=== PATIENT | female | born 1940 | race Caucasian/White ===

== ENCOUNTER → 2019-09-19 07:32 | Outpatient (CLI) | payer MEDICARE, SELFPAY ==
[2019-08-24 10:36] VITALS: BMI 20.3
--- NOTE | 2019-09-19 07:37 | ECHOD_ITS ---
Reason For Study: Chest pain Procedure This was a 2D Doppler, Color Flow transthoracic echocardiogram. Exam performed in department. Left Ventricle Normal LV size. Mild concentric left ventricular hypertrophy. Left ventricular systolic function is hyperdynamic. The estimated ejection fraction is 75 %. There is evidence of diastolic dysfunction. No regional wall motion abnormalities noted. Right Ventricle Normal RV size. Normal systolic function. Atria The left atrium is mildly enlarged. Normal right atrium. No doppler evidence for ASD. Mitral Valve There is severe mitral annular calcification. Extension of the mitral annular calcification onto the posterior mitral valve leaflet. Mild diffuse mitral valve thickening. Moderate focal mitral valve calcification of the anterior leaflet. Mild mitral valve stenosis. Mild (1+) mitral valve insufficiency. Tricuspid Valve Mild diffuse thickening of the tricuspid valve. Mild tricuspid valve insufficiency. Right ventricular systolic pressure estimated to be 58 mmHg. Aortic Valve Trisinus/trileaflet aortic valve. Mild diffuse aortic valve thickening. Moderate diffuse aortic valve calcification. Moderate aortic stenosis. Pulmonic Valve The pulmonic valve is not well visualized. Trivial pulmonic valve insufficiency. Great Vessels Normal sized aortic root. Calcified aortic root. Pericardium/Pleural No pericardial effusion. MMode/2D Measurements & Calculations LVIDd: 3.4 cm IVSd: 1.3 cm LVOT diam: 1.9 cm LVIDs: 1.2 cm LVPWd: 1.4 cm LVOT area: 2.7 cm2 RVDd: 3.1 cm FS: 63.8 % Ao root diam: 2.6 cm LAV(MOD-bp): 39.4 ml LA A4 area: 16.7 cm2 LAV(MOD-bp) Indexed: 25.8 ml/m2 LAV(MOD-sp2): 34.9 ml LAV(MOD-sp4): 45.4 ml LA dimension(2D): 3.0 cm RA A4 area: 13.3 cm2 Doppler Measurements & Calculations MV E max andrade: 114.4 cm/sec Lat Peak E' Andrade: 6.1 cm/sec Med Peak E' Andrade: 4.5 cm/sec MV A max andrade: 166.7 cm/sec E/E' lat: 18.8 E/E' med: 25.6 MV E/A: 0.69 MV V2 max: 166.7 cm/sec Ao V2 max: 308.9 cm/sec LV V1 max: 117.6 cm/sec MV max P.1 mmHg Ao max P.3 mmHg LV V1 max P.5 mmHg MV V2 mean: 116.1 cm/sec Ao V2 mean: 211.2 cm/sec LV V1 mean P.8 mmHg MV mean P.8 mmHg Ao mean P.2 mmHg LV V1 mean: 79.5 cm/sec MV V2 VTI: 24.4 cm Ao V2 VTI: 53.0 cm LV V1 VTI: 21.1 cm MVA(VTI): 2.4 cm2 JUAN CARLOS(I,D): 1.1 cm2 JUAN CARLOS(V,D): 1.0 cm2 SV(LVOT): 58.1 ml PA V2 max: 110.1 cm/sec TR max andrade: 381.7 cm/sec TR max P.4 mmHg Interpretation Summary Left ventricular systolic function is hyperdynamic. The estimated ejection fraction is 75 %. Mild concentric left ventricular hypertrophy. The left atrium is mildly enlarged. There is severe mitral annular calcification. Extension of the mitral annular calcification onto the posterior mitral valve leaflet. Mild diffuse mitral valve thickening. Moderate focal mitral valve calcification of the anterior leaflet. Mild mitral valve stenosis. Mild (1+) mitral valve insufficiency. Mild diffuse thickening of the tricuspid valve. Mild tricuspid valve insufficiency. Moderate aortic stenosis. Trivial pulmonic valve insufficiency. Calcified aortic root. Right ventricular systolic pressure estimated to be 58 mmHg. There is evidence of diastolic dysfunction. Late peaking spectral doppler pattern in the mid LV cavity area approaching 3.5 m/sec (PG of approximately 49 mmHg) c/w a hyperdynamic state. Ordering Physician: Riaz Laureano Referring Physician: Amado Bruce M.D. Performed By: Imelda Donahue RDCS
--- NOTE | 2019-09-19 12:24 | STRESSREP ---
Stress Test Report Date: ? Procedure: Pharmacologic stress nuclear imaging study Indications: Chest pain; shortness of breath/dyspnea; abnormal ECG/right bundle branch block; aortic valve stenosis Consent: Per the patient Procedure: The patient underwent pharmacologic (Regadenoson) evaluation with a peak heart rate of 116 beats per minute (83 %predicted maximal heart rate) and a peak blood pressure of 160/80 mmHg. The baseline ECG demonstrated sinus rhythm; right bundle branch block. The peak pharmacologic ECG demonstrated no obvious ECG changes. There were occasional PVCs during infusion and recovery. There was no complaint of chest discomfort during pharmacologic infusion or recovery. The examination was discontinued secondary to completion of protocol. Impression: 1. Pharmacologic (Regadenoson) evaluation 2. Peak pharmacologic ECG with no obvious ECG changes. 3. There were occasional PVCs during infusion and recovery. 4. Nuclear images pending Myocardial perfusion imaging study: Technique: The patient was injected with 11.5 millicuries of technetium 99m Cardiolite and subsequently rest SPECT Cardiolite nuclear imaging was obtained in the horizontal long, vertical long, and short axis views. The patient underwent pharmacologic (Regadenoson) evaluation with a peak heart rate of 116 beats per minute (83 % percent predicted maximal heart rate) and a peak blood pressure of 160/80 mmHg. The patient was injected with 33.5 millicuries of technetium 99m Cardiolite and subsequently stress SPECT Cardiolite nuclear imaging was obtained in the horizontal long, vertical long, and short axis views. A gated Cardiolite study at peak stress was obtained. Interpretation: Rest and stress SPECT Cardiolite nuclear imaging status post realignment, normalization, and attenuation correction demonstrate relative uniform tracer uptake and myocardial perfusion appearing within normal limits. There is end systolic thickening and brightening. The gated Cardiolite study demonstrates myocardial thickening and inward wall motion. The reported LVEF is 71 %. Impression: 1. Rest and stress SPECT Cardiolite nuclear imaging demonstrate relative uniform tracer uptake and myocardial perfusion appearing within normal limits. 2. The gated Cardiolite study reports an LVEF of 71 %. This note was generated with Repliseation software. It may contain incorrect words, spelling, and punctuation that were not noted in checking the note before signing.
== END ==
PROVIDERS: PCP Internal Medicine; Referring Provider Internal Medicine Cardiovascular Disease; Visit Provider Internal Medicine Cardiovascular Disease
DX: R07.9 Chest pain, unspecified (principal); R06.00 Dyspnea, unspecified; I35.0 Nonrheumatic aortic (valve) stenosis; I45.10 Unspecified right bundle-branch block; E78.2 Mixed hyperlipidemia; I10 Essential (primary) hypertension; R07.2 Precordial pain
CPT/HCPCS: 78452; 93017; 93306; A9500; A4216; J2785

== ENCOUNTER 2020-08-27 09:50 | Observation (INO) | payer MEDICARE, OTHER, SELFPAY ==
[2019-11-17 14:35] VITALS: BMI 19.3
[2020-08-27] VITALS (31 sets, daily range): BP systolic 114–169; BP diastolic 48–99; PULSE 12–155; RESP 12–153; TEMP 36.3–36.6; O2SAT 92–100; BMI 17.6; BMI 19.6
--- NOTE | 2020-08-27 10:03 | EKG12_ITS ---
Test Reason : Blood Pressure : / mmHG Vent. Rate : 154 BPM Atrial Rate : 308 BPM P-R Int : 000 ms QRS Dur : 122 ms QT Int : 306 ms P-R-T Axes : 182 117 -74 degrees QTc Int : 490 ms Suspect arm lead reversal, interpretation assumes no reversal Atrial flutter Right bundle branch block Septal infarct , age undetermined Abnormal ECG Confirmed by SAM COOPER, IVA ([id number]), editor greeting card DARIAN RAMIREZ ([id number]) on 08/30/2020 7:58:49 AM Referred By: ELAINA Confirmed By:BLANCA VARGAS MD
--- NOTE | 2020-08-27 10:16 | ED.VIS.GEN ---
History of Present Illness Chief Complaint: General Illness Informant: Patient, Family Narrative: 80-year-old female brought to the emergency department after being referred here by their primary care physician Dr. Bruce. Patient has a history of COPD and is on chronic home oxygen. She has had fatigue weight loss lower extremity edema and now fast heart rate. states she has had a fast heart rate in the past but has not been diagnosed as A. fib or atrial flutter. She is not on any blood thinners. The patient states that her legs began swelling about 1 week ago and 2 days ago became significantly more swollen. She notes her breathing is at baseline except when she exerts herself. Patient has seen Dr. Laureano last November 2019. She had an echocardiogram that demonstrated ejection fraction of 75%, severe mitral annular calcification, moderate aortic stenosis and right ventricular systolic pressures estimated be 58. She also had a pharmacologic stress nuclear study that was negative. - Past Medical History (1) Nonrheumatic aortic (valve) stenosis Status: Chronic Comment: Mild (2) CKD (chronic kidney disease) stage 3, GFR 30-59 ml/min Status: Chronic (3) COPD (chronic obstructive pulmonary disease) Status: Chronic (4) Essential hypertension Status: Chronic (5) Mixed hyperlipidemia Status: Chronic (6) Type 2 diabetes mellitus Status: Chronic Past Medical History - Allergies and Home Meds Allergies/Adverse Reactions: Allergies lisinopril Adverse Reaction (Severe, Verified 08/27/20 09:51) lightheaded, not feel well Surgical History: noncontributory Lives: Spouse/ Significant Other Smoking Status: Former smoker Drugs: None Review of Systems General: Reports: Malaise, Weight loss. Denies: Chills, Fever, Sweats Eyes: Denies: Visual changes - bilaterally, Diplopia ENT: Denies: Rhinorrhea, Sore throat Cardiovascular: Reports: Palpitations, Heart racing. Denies: Chest pain Respiratory: Reports: Dyspnea, Cough. Denies: Dyspnea on exertion Gastrointestinal: Denies: Abdominal pain, Nausea, Vomiting, Diarrhea, Melena, Hematochezia Genitourinary: Denies: Dysuria, Hematuria, Frequency Musculoskeletal: Reports: Swelling. Denies: Back pain, Extremity Pain Skin: Denies: Rash, Wounds Neurological: Denies: Headache, Weakness, Numbness Physical Exam Vital Signs/Narrative: Vital Signs Temp Pulse Resp BP Pulse Ox 08/27/20 10:07 155 H 23 H 161/87 H 100 08/27/20 09:51 97.3 F L 153 H 22 H 141/73 H 98 Inital Vital Signs reviewed: Yes General: Well developed, Cachectic, No Acute Distress Head: Normocephalic, Atraumatic Eyes: Perrl, EOMI ENT: Moist mucous membranes, No rhinorrhea Neck: Supple, Nontender Cardiovascular: Regular rate, No murmurs, Tachycardia Respiratory: No distress, Chest nontender, Wheezing - Faint expiratory wheeze noted Abdomen: Soft, Nontender, Nondistended, Normal bowel sounds Back: Nontender, Normal Inspection Extremities: Nontender, Edema - Lower extremities 2+ edema pitting symmetric Skin: Normal color, No rash Neurological: Alert, Oriented x3, Cranial nerves II-XII grossly intact, Normal Strength, Normal Sensation Psychological: Normal affect, Normal Mood Diagnostic/Tx/Re-eval Clinical Impression(s) from Imaging Studies Chest X-Ray 08/27/20 11:02 IMPRESSION: Emphysema with a left upper lobe pneumonia or mass. Clinical correlation and CT would be useful. Electronically Signed: Sam Araiza MD at 11:18 EDT Tel , Service support , Chest CTA 08/27/20 11:44 IMPRESSION: 1. No CT evidence of pulmonary embolism. 2. Small right pleural effusion with right lower lobe atelectasis. Electronically Signed: Sam Araiza MD at 12:47 EDT Tel , Service support , Laboratory Last Values WBC 10.6 K/mm3 (4.4-11.0) 08/27/20 10:30 RBC 3.41 M/mm3 (4.2-5.4) L 08/27/20 10:30 Hgb 9.2 g/dL (12.0-15.0) L 08/27/20 10:30 Hct 32.2 % (37-47) L 08/27/20 10:30 MCV 94.4 fL (81-99) 08/27/20 10:30 MCH 27.0 pg (27.0-32.0) 08/27/20 10:30 MCHC 28.6 g/dL (32-36) L 08/27/20 10:30 RDW Std Deviation 45.5 fl (35.1-43.9) H 08/27/20 10:30 RDW Coeff of Lul 13.1 % (11.6-14.6) 08/27/20 10:30 Plt Count 230 K/mm3 (150-450) 08/27/20 10:30 MPV 11.5 fl (6.2-12.0) 08/27/20 10:30 Immature Gran % (Auto) 0.300 % (0.0-0.9) 08/27/20 10:30 Neut % (Auto) 89.6 % (47-70) H 08/27/20 10:30 Lymph % (Auto) 3.7 % (19-41) L 08/27/20 10:30 [place] % (Auto) 5.8 % (0-10) 08/27/20 10:30 Eos % (Auto) 0.4 % (0-5) 08/27/20 10:30 Baso % (Auto) 0.2 % (0-1) 08/27/20 10:30 Absolute Neuts (auto) 9.5 X10^3/uL (2.0-7.7) H 08/27/20 10:30 Absolute Lymphs (auto) 0.39 X10^3/uL (0.83-4.51) L 08/27/20 10:30 Nucleated RBC % 0 % (0-5) 08/27/20 10:30 Differential Comment COMMENT 08/27/20 10:30 PT 12.4 SECONDS (11.7-14.9) 08/27/20 10:30 INR 1.0 08/27/20 10:30 APTT 27.5 Seconds (24.1-36.2) 08/27/20 10:30 Sodium 137 mmol/L (136-145) 08/27/20 10:30 Potassium 3.6 mmol/L (3.5-5.1) 08/27/20 10:30 Chloride 94 mmol/L (98-107) L 08/27/20 10:30 Carbon Dioxide 43.0 mmol/L (21.0-32.0) H 08/27/20 10:30 Anion Gap 0 (5-15) L 08/27/20 10:30 BUN 43 mg/dL (7-18) H 08/27/20 10:30 Creatinine 0.95 mg/dL (0.55-1.02) 08/27/20 10:30 Estim Creat Clear Calc 32.69 ml/min 08/27/20 10:30 Est GFR (MDRD) Af Amer 72 mL/min (>60) 08/27/20 10:30 Est GFR (MDRD) Non-Af 60 mL/min (>60) 08/27/20 10:30 BUN/Creatinine Ratio 45.1 RATIO (10-20) H 08/27/20 10:30 Glucose 167 mg/dL (74-106) H 08/27/20 10:30 Calcium 9.2 mg/dL (8.5-10.1) 08/27/20 10:30 Magnesium 1.9 mg/dL (1.6-2.6) 08/27/20 10:30 Total Bilirubin 0.30 mg/dL (0.20-1.00) 08/27/20 10:30 AST 11 U/L (15-37) L 08/27/20 10:30 ALT 14 U/L (13-56) 08/27/20 10:30 Alkaline Phosphatase 94 U/L (45-117) 08/27/20 10:30 Troponin I 0.025 ng/mL (<0.045) 08/27/20 10:30 B-Natriuretic Peptide 506.4 pg/mL (0-100) H 08/27/20 10:30 Total Protein 7.4 g/dL (6.4-8.2) 08/27/20 10:30 Albumin 2.6 g/dL (3.2-5.0) L 08/27/20 10:30 Globulin 4.8 g/dL (2.2-4.2) H 08/27/20 10:30 Albumin/Globulin Ratio 0.5 RATIO (0.9-2.4) L 08/27/20 10:30 TSH 2.90 uIU/mL (0.358-3.74) 08/27/20 10:30 - EKG Initial EKG Interpretation: Atrial Flutter - EKG demonstrates atrial flutter at a rate of 154. Right bundle branch block noted which is old. - Medical Decision Making Patient was given diltiazem with no improvement in her rate or really any variation in her rate. Still about 154 no change in blood pressure. I spoke with on-call physical therapist technician Dr. Laureano who recommends amiodarone. My impression of the chest x-ray is possible lung mass on the left and a right pleural effusion. I do not think this represents pneumonia as patient has no fever or white count cough is unchanged. CT of the chest does not demonstrate pulmonary embolism or mass. Right pleural effusion noted. Plan is admission into the hospital and speak with the hospitalist. She also be given a dose of Lasix for the right-sided failure. ED Disposition - Plan for ED Patient: Disposition: Acute Care Hospital [facility] Diagnosis: Atrial flutter with rapid ventricular response, Right heart failure, Chronic kidney disease (CKD), Pleural effusion, right
[2020-08-27] MEDS: dilTIAZem 25 MG/5 ML Vial 10 MG IV BOLUS (10:27)
[2020-08-27 10:39] LABS: Absolute Lymphocyte Count 0.39 X10^3/uL (0.83-4.51); Absolute Neutrophil Count 9.5 X10^3/uL (2.0-7.7); Basophil# 0.02 X10^3/uL; Basophil% 0.2 % (0-1); Eosinophil# 0.04 X10^3/uL; Eosinophils% 0.4 % (0-5); Hematocrit 32.2 % (37-47); Hemoglobin 9.2 g/dL (12.0-15.0); Lymphocyte # 0.39 X10^3/ul (0.83-4.51); Lymphocyte % 3.7 % (19-41); Mean Corp Hgb Conc 28.6 g/dL (32-36); Mean Corpuscular Volume 94.4 fL (81-99); Mean Platelet Vol. 11.5 fl (6.2-12.0); Monocyte# 0.62 X10^3/uL; Monocyte% 5.8 % (0-10); NRBC Flagged by Analyzer 0 % (0-5); Neutrophil # 9.54 X10^3/uL (2.7-7.7); Neutrophil % 89.6 % (47-70); POSITIVE DIFFERENTIAL YES; Platelet Count 230 K/mm3 (150-450); RBC Distribution Width CV 13.1 % (11.6-14.6); RBC Distribution Width SD 45.5 fl (35.1-43.9); Red Blood Count 3.41 M/mm3 (4.2-5.4); White Blood Count 10.6 K/mm3 (4.4-11.0)
[2020-08-27 10:40] LABS: Differential Indicated SCAN CRITERIA MET
[2020-08-27 10:47] LABS: Prothrombin Time (Protime)PT. 12.4 SECONDS (11.7-14.9)
[2020-08-27 10:48] LABS: Partial Thromboplast Time 27.5 Seconds (24.1-36.2)
[2020-08-27 10:58] LABS: BNP,B-Type NATRIURETIC PEPTIDE 506.4 pg/mL (0-100)
--- NOTE | 2020-08-27 11:02 | RAD_ITS ---
STUDY: X-RAY CHEST REASON FOR EXAM: Female, 80 years old. dyspnea copd TECHNIQUE: Single AP portable view of the chest. COMPARISON: None. FINDINGS: There is hyperinflation of the lungs consistent with chronic obstructive lung disease (COPD). Alveolar opacity in the upper left lung worrisome for pneumonia or mass. Clinical correlation and CT would be useful. There is no demonstrated pleural abnormality. There is moderate cardiac enlargement. Normal mediastinum and conchita. Normal visualized pulmonary arteries. Normal visualized aortic arch and descending thoracic aorta. Normal visualized thoracic spine. Normal visualized ribs, clavicles, and shoulders. There is no demonstrated abnormality of the visualized soft tissue structures of the upper abdomen. RAD/Chest 1 View (Portable) IMPRESSION: Emphysema with a left upper lobe pneumonia or mass. Clinical correlation and CT would be useful. Electronically Signed: Sam Araiza MD at 11:18 EDT Tel , Service support ,
[2020-08-27 11:13] LABS: ALB/GLOB Ratio 0.5 RATIO (0.9-2.4); AST(SGOT) 11 U/L (15-37); Alanine Aminotransfer ALT/SGPT 14 U/L (13-56); Albumin, Serum 2.6 g/dL (3.2-5.0); Alkaline Phosphatase 94 U/L (45-117); Anion Gap 0 (5-15); BUN 43 mg/dL (7-18); BUN/Creat Ratio 45.1 RATIO (10-20); Calcium,Total 9.2 mg/dL (8.5-10.1); Chloride 94 mmol/L (98-107); Creatinine, Serum 0.95 mg/dL (0.55-1.02); EST Glomerular Filtration Rate 60 mL/min (>60); Est Glom Filt Rate - Afr Amer 72 mL/min (>60); Estimated Creatinine Clearance 32.69 ml/min; Globulin 4.8 g/dL (2.2-4.2); Glucose 167 mg/dL (74-106); Magnesium 1.9 mg/dL (1.6-2.6); Potassium 3.6 mmol/L (3.5-5.1); Protein, Total 7.4 g/dL (6.4-8.2); Sodium Level 137 mmol/L (136-145)
--- NOTE | 2020-08-27 11:44 | CT_ITS ---
STUDY: CTA CHEST REASON FOR EXAM: Female, 80 years old. dyspnea/lung mass RADIATION DOSAGE (If Supplied By Facility): CTDIvol = ( 7.71 ) mGy, DLP = ( 181.52 ) mGycm TECHNIQUE: The examination was performed with the intravenous administration of IV 75mL Isovue-370. Post-processing of the angiographic images was performed, with multiplanar reformation and 3D reconstruction. Individualized dose optimization techniques were used for this CT. COMPARISON: None. FINDINGS: Normal enhancement of the main pulmonary artery and right and left pulmonary arteries. Normal enhancement of the bilateral peripheral pulmonary arteries. There is no demonstrated pulmonary embolism. There is atherosclerotic calcification of the aortic arch with tortuosity. There is no demonstrated aortic dissection. There is a small pericardial effusion. There are calcifications of the coronary arteries. Normal mediastinum. Normal hilar regions. Normal visualized trachea and bronchi. The lungs are well expanded. Mild bilateral apical scarring which is partially calcified. Mild edematous changes. Small right pleural effusion with right lower lobe atelectasis. Normal chest wall structures. Normal osseous structures. Normal visualized upper abdomen. CT/CTA Chest W/WO Contrast IMPRESSION: 1. No CT evidence of pulmonary embolism. 2. Small right pleural effusion with right lower lobe atelectasis. Electronically Signed: Sam Araiza MD at 12:47 EDT Tel , Service support ,
--- NOTE | 2020-08-27 11:52 | PCM.HP.STD ---
Problem List (1) Atrial flutter with rapid ventricular response Status: Acute (2) Right heart failure Status: Acute (3) Chronic kidney disease (CKD) Status: Chronic (4) Pleural effusion, right Status: Acute (5) RBBB (right bundle branch block) Status: Chronic (6) Nonrheumatic aortic (valve) stenosis Status: Chronic Comment: Mild (7) COPD (chronic obstructive pulmonary disease) Status: Chronic (8) CKD (chronic kidney disease) stage 3, GFR 30-59 ml/min Status: Chronic (9) Type 2 diabetes mellitus Status: Chronic (10) Essential hypertension Status: Chronic (11) Mixed hyperlipidemia Status: Chronic History of Present Illness Date of Admission: 08/27/20 Chief Complaint: Feeling fatigue/generalized weakness for 2 to 3 weeks The patient is a 80 year old F with 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 Patient felt fast heartbeat/palpitation today and was evaluated in the office by Dr. Bruce and sent to ER. Patient also has loss of weight but could not tell exact quantity last few months. Patient denies chest pain/pressure but has pounding sensation. Mild dizziness/lightheadedness on standing up for last few weeks. Leg swelling for last 1 week, got worse in 2 days ago. Last echo in 09/2019 shows EF 75%, hyperdynamic LV, mild concentric LVH, mild MR, mild TR, moderate aortic stenosis, RVSP 58 mmHg. In triage, patient heart rate was about 155 and EKG shows atrial flutter with ventricular rate 154 beats per. QRS 122 ms, right bundle branch block, QTC 490 ms. Previous EKG November 2019 shows sinus bradycardia 58 bpm, right bundle branch block, RVH with right axis deviation. BP 161/87. Pulse ox 92% on 4 L of oxygen. Chest x-ray and then chest CTA was done which did not show evidence of pulmonary embolism but a small right pleural effusion and right lower lobe atelectasis. Past Medical History Past Medical History (Chronic Problems): Chronic Problems (Last Reviewed 11/17/19 @ 14:38 by Carmela Ambrocio) Chronic kidney disease (CKD) (Chronic) RBBB (right bundle branch block) (Chronic) Nonrheumatic aortic (valve) stenosis (Chronic) Mild COPD (chronic obstructive pulmonary disease) (Chronic) CKD (chronic kidney disease) stage 3, GFR 30-59 ml/min (Chronic) Type 2 diabetes mellitus (Chronic) Essential hypertension (Chronic) Mixed hyperlipidemia (Chronic) Medical History: Medical History (Last Reviewed 11/17/19 @ 14:38 by Carmela Ambrocio) RBBB (right bundle branch block) (Acute) I45.10 Nonrheumatic aortic (valve) stenosis (Chronic) I35.0 Mild COPD (chronic obstructive pulmonary disease) (Chronic) J44.9 CKD (chronic kidney disease) stage 3, GFR 30-59 ml/min (Chronic) N18.3 Type 2 diabetes mellitus (Chronic) E11.9 Essential hypertension (Chronic) I10 Mixed hyperlipidemia (Chronic) E78.2 Inguinal hernia K40.90 Tubular adenoma of colon D12.6 Allergies lisinopril Adverse Reaction (Severe, Verified 08/27/20 09:51) lightheaded, not feel well Home Medications: Ambulatory Orders Medication Instructions Recorded albuterol sulfate 90 mcg/actuation 2 puff INHALATION Q6H PRN 06/27/19 aerosol inhaler budesonide-formoterol HFA 80 2 puff INHALATION BID 06/27/19 mcg-4.5 mcg/actuation aerosol inhaler clobetasol 0.05 % topical ointment 1 applic TOPICAL DAILY PRN 06/27/19 diltiazem HCl 360 mg 360 mg PO DAILY 06/27/19 capsule,extended release 24 hr hydrochlorothiazide 25 mg tablet 25 mg PO DAILY 06/27/19 metformin 500 mg tablet 500 mg PO DAILY 06/27/19 metoprolol succinate 50 mg 50 mg PO DAILY 06/27/19 tablet,extended release 24 hr paroxetine HCl 30 mg tablet 30 mg PO DAILY 06/27/19 pravastatin 20 mg tablet 20 mg PO DAILY 06/27/19 aspirin 81 mg tablet,delayed 81 mg PO DAILY 08/24/19 release cholecalciferol (vitamin D3) 50 2,000 unit PO DAILY 08/24/19 mcg (2,000 unit) capsule furosemide 20 mg tablet 20 mg PO Q OTHER DAY #30 tab 11/17/19 lorazepam 0.5 mg tablet 0.5 mg PO BID 11/17/19 Escitalopram Oxalate [Lexapro] 10 mg PO DAILY 08/27/20 Surgical History: Surgical History (Last Reviewed 11/17/19 @ 14:38 by Carmela Ambrocio) History of appendectomy Z90.49 History of bilateral cataract extraction Z98.41, Z98.42 Surgical History: noncontributory Lives: Spouse/ Significant Other Smoking Status: Former smoker Drugs: None - *Family History Maternal Family History: Family History (Last Reviewed 11/17/19 @ 14:38 by Carmela Ambrocio) Mother Diabetes Hypertension Heart disease Father Heart disease Review of Systems Constitutional: Reports: Malaise, Weakness, Weight Change, Fatigue - Weight loss. Denies: Chills, Fever HEENT: Denies: Head Aches, Sinus Congestion, Sinus Drainage Cardiovascular: Reports: Edema, Light Headedness, Palpitations. Denies: Chest Pain Respiratory: Denies: Cough, Shortness of breath at rest, Sputum production Gastrointestinal: Denies: Abdominal Pain, Nausea, Vomiting Genitourinary: Denies: Dysuria, Frequency, Urgency Musculoskeletal: Denies: Joint Pain, Joint Tenderness Skin: Denies: Rash, Wounds Neurological: Reports: Balance problems. Denies: Focal weakness, Numbness, Tingling Psychiatric: Denies: Anxiety, Depression, Homicidal Ideations, Suicidal Ideations Hematologic/ Lymphatic: Denies: Easy Bruising, Easy Bleeding VTE Information - Inpt Only VTE Present on Admission: No VTE Mechan Device Prophylaxis: None VTE Pharm Prophylaxis ordered?: No Reason prophylaxis not ordered:: Procedure Not Indicated - On therapeutic dose of Lovenox Patient Problems: Active and Suspected Problems (Last Reviewed 11/17/19 @ 14:38 by Carmela Ambrocio) Atrial flutter with rapid ventricular response (Acute) Right heart failure (Acute) Pleural effusion, right (Acute) Objective: General: Alert, Oriented x3, Cooperative, thin built BMI 19.6 kg/m? HEENT: Atraumatic, PERRLA, EOMI, Normocephalic Oral: No Gingival or Mucosal Lesions/ Ulcerations Neck: Supple, No JVD, Negative Carotid Bruits Lungs: Air entry diminished in bilateral lung bases. No crepitation/rhonchi, mild labored breathing Cardiovascular: Regular rate, Regular Rhythm, Normal S1, Normal S2, No murmurs Abdomen: Bowel Sounds Present, Soft, Non Tender, Non-Distended : No renal angle tenderness. No suprapubic tenderness. Extremities: 2+ bilateral leg edema, Capillary Refill Less than 3 Seconds Skin: No rashes, No breakdown Musculoskeletal: No Tenderness to Palpation of Joints or Extremities Neurological: Cranial nerves II-XII grossly intact, Deep Tendon Reflexes 2+/4 and Symmetrical, Neuro grossly intact Psych/Mental Status: Normal Affect, Appropriate. - Physical Exam Vitals/I&O's: Vital Signs Temp Pulse Resp BP Pulse Ox 97.3 F L 12 L 153 H 129/76 H 98 08/27/20 09:51 08/27/20 11:21 08/27/20 11:21 08/27/20 11:21 08/27/20 11:21 Oxygen Flow Rate (L/min) 4 Oxygen Delivery Method Nasal Cannula Weight: 100 lb Body Mass Index (BMI) 17.6 Laboratory Results 08/27/20 10:30: WBC 10.6, RBC 3.41 L, Hgb 9.2 L, Hct 32.2 L, MCV 94.4, MCH 27.0, MCHC 28.6 L, RDW Std Deviation 45.5 H, RDW Coeff of Lul 13.1, Plt Count 230, MPV 11.5, Immature Gran % (Auto) 0.300, Neut % (Auto) 89.6 H, Lymph % (Auto) 3.7 L, Dawson % (Auto) 5.8, Eos % (Auto) 0.4, Baso % (Auto) 0.2, Absolute Neuts (auto) 9.5 H, Absolute Lymphs (auto) 0.39 L, Nucleated RBC % 0, Differential Comment COMMENT 08/27/20 10:30: PT 12.4, INR 1.0, APTT 27.5 08/27/20 10:30: Sodium 137, Potassium 3.6, Chloride 94 L, Carbon Dioxide 43.0 H, Anion Gap 0 L, BUN 43 H, Creatinine 0.95, Estim Creat Clear Calc 32.69, Est GFR (MDRD) Af Amer 72, Est GFR (MDRD) Non-Af 60, BUN/Creatinine Ratio 45.1 H, Glucose 167 H, Calcium 9.2, Magnesium 1.9, Total Bilirubin 0.30, AST 11 L, ALT 14, Alkaline Phosphatase 94, Troponin I 0.025, Total Protein 7.4, Albumin 2.6 L, Globulin 4.8 H, Albumin/Globulin Ratio 0.5 L, TSH 2.90 08/27/20 10:30: B-Natriuretic Peptide 506.4 H Current Medications Amiodarone HCl 360 mg/ (Dextrose) 200 mls @ 33.333 mls/hr CONT INF .Q6H FABIAN Stop: 08/27/20 17:44 Assessment/Plan All Active Problems (Last Reviewed 11/17/19 @ 14:38 by Carmela Ambrocio) Atrial flutter with rapid ventricular response (Acute) Right heart failure (Acute) Pleural effusion, right (Acute) The patient is a 80 year old F with 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 EKG shows atrial flutter with ventricular rate 154 beats per. QRS 122 ms, right bundle branch block, QTC 490 ms. Previous EKG November 2019 shows sinus bradycardia 58 bpm, right bundle branch block, RVH with right axis deviation. Chest x-ray and then chest CTA was done which did not show evidence of pulmonary embolism but a small right pleural effusion and right lower lobe atelectasis. 1. New onset of atrial flutter with RVR, chronic right bundle branch block: Patient is being admitted in PCU. ER physician discussed with Dr. Laureano. Patient did not respond with diltiazem therefore started on amiodarone. Continue metoprolol from tartrate 50 mg twice daily. Repeat EKG. TSH normal. First troponin normal. 2. Acute on chronic diastolic heart failure/HFpEF, mild right pleural effusion with acute on chronic right ventricular failure and moderate pulmonary hypertension Mild MR, mild TR, moderate aortic stenosis: Last echo in 09/2019 shows EF 75%, hyperdynamic LV, mild concentric LVH, mild MR, mild TR, moderate aortic stenosis, RVSP 58 mmHg. Patient had Lasix 60 mg IV in the ER. Lasix 40 mg IV daily from tomorrow a.m. 3. COPD/emphysema with chronic hypoxic respiratory failure: We will continue bronchodilator as needed. Avoid albuterol for tachycardia. 4. Diabetes mellitus type 2: 5. CKD stage IIIb: Her estimated creatinine clearance is 32.69. No previous labs to compare. Denies change in the urine output or new urinary tract symptoms 6. Severe protein calorie malnutrition probably from emphysema/COPD: BMI 19.6 kg/m? with a diffuse loss of extremity muscle mass and loss of subcutaneous fat. Other comorbidities include essential hypertension, dyslipidemia: Home medication reconciliation done. Living will/advanced directive/end of life care: Patient does not have living will or advanced directive. Her is next to kin/power of divorce attorney for health. After discussion of benefits/risks procedures involved with full code, DNR CC arrest and DNR CC, the patient opted for DNR-CC Arrest with no intubation Patient does not want artificial life support including intubation, tube feed, ventilator and/chest compression, central venous catheter, vasopressor and DC shock if needed Total time spent in [id number] encounter in discussion of advanced directive 16 minutes. Inpatient E&M: 48588 Init Hosp L3 Procedures: 36305 Advncd Care Plan 30 Min
[2020-08-27] MEDS: Furosemide 100 MG/10 ML Vial 60 MG IV (12:14)
[2020-08-27] MEDS: Amiodarone 360 MG in Dextrose 5% Viaflo Bag 192.8 ML 33.3 MG CONT INF (12:54)
--- NOTE | 2020-08-27 13:59 | EKG12_ITS ---
Test Reason : AM EKG Blood Pressure : / mmHG Vent. Rate : 087 BPM Atrial Rate : 271 BPM P-R Int : 000 ms QRS Dur : 128 ms QT Int : 404 ms P-R-T Axes : 122 108 256 degrees QTc Int : 486 ms Suspect arm lead reversal, interpretation assumes no reversal Atrial flutter with variable A-V block Right bundle branch block Septal infarct , age undetermined T wave abnormality, consider inferolateral ischemia Abnormal ECG When compared with ECG of 27-AUG-2020 15:30, MANUAL COMPARISON REQUIRED, DATA IS UNCONFIRMED Confirmed by SAM COOPER, IVA ([id number]), restaurant expeditor DARIAN RAMIREZ ([id number]) on 08/30/2020 8:30:29 AM Referred By: LUCIANO Confirmed By:BLANCA VARGAS MD
[2020-08-27] MEDS: Metoprolol Tartrate 50 MG Tablet PO ×2 (14:00→21:34)
[2020-08-27] MEDS: Potassium Chloride Oral Tablet 20 MEQ 40 MEQ PO (15:37)
[2020-08-27] MEDS: Digoxin 250 MCG/ML Ampul 500 MCG IV (15:38)
--- NOTE | 2020-08-27 16:27 | NT.THERAPY_ITS ---
Nutrition Therapy Report - History Nutrition Services has been consulted to:: Manage nutrient details of diet order Current diet / nutrition support order:: 1800 calorie; cardiac - Anthropometric Measurements Height:: 5 ft 3 in Weight:: 50.3 kg Body Mass Index (BMI):: 19.6 - Relevant Labs Relevant Labs:: RBC 3.41 M/mm3 (4.2-5.4) L 08/27/20 10:30 Hgb 9.2 g/dL (12.0-15.0) L 08/27/20 10:30 Hct 32.2 % (37-47) L 08/27/20 10:30 MCHC 28.6 g/dL (32-36) L 08/27/20 10:30 RDW Std Deviation 45.5 fl (35.1-43.9) H 08/27/20 10:30 Neut % (Auto) 89.6 % (47-70) H 08/27/20 10:30 Lymph % (Auto) 3.7 % (19-41) L 08/27/20 10:30 Absolute Neuts (auto) 9.5 X10^3/uL (2.0-7.7) H 08/27/20 10:30 Absolute Lymphs (auto) 0.39 X10^3/uL (0.83-4.51) L 08/27/20 10:30 Chloride 94 mmol/L (98-107) L 08/27/20 10:30 Carbon Dioxide 43.0 mmol/L (21.0-32.0) H 08/27/20 10:30 Anion Gap 0 (5-15) L 08/27/20 10:30 BUN 43 mg/dL (7-18) H 08/27/20 10:30 BUN/Creatinine Ratio 45.1 RATIO (10-20) H 08/27/20 10:30 Glucose 167 mg/dL (74-106) H 08/27/20 10:30 AST 11 U/L (15-37) L 08/27/20 10:30 Troponin I 0.046 ng/mL (<0.045) H 08/27/20 14:18 B-Natriuretic Peptide 506.4 pg/mL (0-100) H 08/27/20 10:30 Albumin 2.6 g/dL (3.2-5.0) L 08/27/20 10:30 Globulin 4.8 g/dL (2.2-4.2) H 08/27/20 10:30 Albumin/Globulin Ratio 0.5 RATIO (0.9-2.4) L 08/27/20 10:30 - Assessment Food / Nutrition-Related History:: Pt at first reports that she has not been losing weight but, then reports wt ~150 lbs 1 year ago; calculated 26% wt loss which is significant for severe malnutrition. Pt with obvious signs of muscle and fat wasting in the face, clavicle, orbital, temporal region, arms and legs. +NFPA. Pt denies difficulty chewing/swallowing but, PO has been decreased as of late. PO to be established at this time; pt reports taking ensure 2-3 bottles per day and does eat but, weight keeps declining. Agreeable to ONS this admit and will liberalize diet to regular/no added salt in an effort to optimize nutrition given severe pro/rolando malnutrition. Will offer glucerna shake w/ meals and ensure enlive w/ medpass. - Nutrition Diagnosis Problem / Etiology / Signs & Symptoms (PES):: Severe Pro/Rolando malnutrition in the context of chronic disease related to increased energy expenditure of catabolic disease as evidenced by 26% wt loss, +NFPA with obvious signs of muscle and fat wasting in the face, clavicle, orbital, temporal region, arms and legs and inadequate oral intake meeting less than 50% estimated nutrition needs x past 2- 3 months. Evidence of Malnutrition Exists:: Yes Severe PCM:: Chronic Illness - Nutrition Intervention Nutrition Prescription:: Estimated nutrition needs for repletion~4280-9100 kcal (35 kcal/Kg) and ~65-75 gm pro (1.4 gm pro/Kg) per day. Estimated fluid needs~8641-8176 ml/day (32 ml/Kg). - Food / Nutrient Delivery Interventions Summary of nutrition intervention:: Will liberalize diet to regular/no added salt to optimize nutrition. Will provide 120ml ensure enlive 4 times per day w/ medpass. Will provide 120ml glucerna shake TID w/ meals. Nutrition education provided?: Yes - MNT Monitoring Further MNT monitoring and evaluation required?: Yes MNT Follow-up in:: 3-5 days
[2020-08-27] MEDS: Aspirin E.C. 81 MG Tablet PO (17:30)
--- NOTE | 2020-08-27 17:50 | CON.PCM_ITS ---
Problem List (1) Atrial flutter with rapid ventricular response Status: Acute (2) Nonrheumatic aortic (valve) stenosis Status: Chronic Comment: Mild (3) Mitral valve disorder Status: Chronic (4) Mixed hyperlipidemia Status: Chronic (5) Essential hypertension Status: Chronic (6) Type 2 diabetes mellitus Status: Chronic (7) Chronic kidney disease (CKD) Status: Chronic (8) COPD (chronic obstructive pulmonary disease) Status: Chronic (9) Abnormal cardiac enzyme level Status: Acute Reason for Consult Date of Consultation: 08/27/20 History of Present Illness: The patient is a 80 year old white female with a past medical history of aortic valve disorder/stenosis, mitral valve disorder/stenosis/insufficiency, hyperlipidemia, hypertension, diabetes mellitus, renal insufficiency, COPD, who presents for evaluation of atrial flutter with rapid ventricular response. She states she has not felt good for some time now. She does not seem to suggest ongoing chest discomfort. She has been short of breath and dyspneic which she has attributed to her underlying COPD. There has been no acute orthopnea or PND. She has had waxing and waning lower extremity peripheral pitting edema. There is been no near syncope or syncope. She states she has felt her heart rate being elevated. She presented to her PCP office and was subsequently referred to the emergency department based upon concerns of an elevated heart rate. She was found to have what appeared to be atrial flutter with RVR. She was subsequently placed in the PCU for further evaluation and care. She was found to have mildly indeterminate troponin I levels. Her ECG demonstrated the appearance of atrial flutter with a right bundle branch block pattern. She was placed on medical management to assist with rate control and rhythm control. Was also placed on anticoagulant therapy. She was referred for further cardiovascular evaluation. [] Past Medical History Allergies/Adverse Reactions: Allergies lisinopril Adverse Reaction (Severe, Verified 08/27/20 09:51) lightheaded, not feel well Home Medications: Ambulatory Orders Medication Instructions Recorded albuterol sulfate 90 mcg/actuation 2 puff INHALATION Q6H PRN 06/27/19 aerosol inhaler budesonide-formoterol HFA 80 2 puff INHALATION BID 06/27/19 mcg-4.5 mcg/actuation aerosol inhaler clobetasol 0.05 % topical ointment 1 applic TOPICAL DAILY PRN 02/18/20 diltiazem HCl 360 mg 360 mg PO DAILY 06/27/19 capsule,extended release 24 hr hydrochlorothiazide 25 mg tablet 25 mg PO DAILY 06/27/19 metformin 500 mg tablet 500 mg PO DAILY 06/27/19 metoprolol succinate 50 mg 50 mg PO DAILY 06/27/19 tablet,extended release 24 hr paroxetine HCl 30 mg tablet 30 mg PO DAILY 06/27/19 pravastatin 20 mg tablet 20 mg PO DAILY 06/27/19 aspirin 81 mg tablet,delayed 81 mg PO DAILY 08/24/19 release cholecalciferol (vitamin D3) 50 2,000 unit PO DAILY 08/24/19 mcg (2,000 unit) capsule furosemide 20 mg tablet 20 mg PO Q OTHER DAY #30 tab 11/17/19 lorazepam 0.5 mg tablet 0.5 mg PO BID 11/17/19 Escitalopram Oxalate [Lexapro] 10 mg PO DAILY 08/27/20 Past Medical History (Chronic Problems): Chronic Problems (Last Reviewed 11/17/19 @ 14:38 by Carmela Ambrocio) Chronic kidney disease (CKD) (Chronic) Mitral valve disorder (Chronic) RBBB (right bundle branch block) (Chronic) Nonrheumatic aortic (valve) stenosis (Chronic) Mild COPD (chronic obstructive pulmonary disease) (Chronic) CKD (chronic kidney disease) stage 3, GFR 30-59 ml/min (Chronic) Type 2 diabetes mellitus (Chronic) Essential hypertension (Chronic) Mixed hyperlipidemia (Chronic) Surgical History: noncontributory - *Family History Maternal Family History: Family History (Last Reviewed 11/17/19 @ 14:38 by Carmela Ambrocio) Mother Diabetes Hypertension Heart disease Father Heart disease Lives: Spouse/ Significant Other Smoking Status: Former smoker Drugs: None Review of Systems - Review of Systems General: Reports: Fatigue, Weakness, Weight Loss. Denies: Fever, Night Sweats Cardiovascular: Reports: Shortness of Breath, Shortness of Breath at Rest, Peripheral Edema, Palpitations. Denies: Chest Discomfort, Orthopnea, PND, Lightheadedness, Dizziness, Near Syncope, Syncope Respiratory: Reports: Shortness of Breath. Denies: Cough, Sputum Production, Hemoptysis Gastrointestinal: Denies: Hematemesis, Hematochezia, Melena Genitourinary: Denies: Dysuria, Hematuria Skin: Denies: Rash Subjectve: This is an 80-year-old frail and cachectic appearing white female who appears to be resting reasonably comfortably at this time wearing O2 nasal cannula. Objective: Vital Signs Temp Pulse Resp BP Pulse Ox 97.7 F L 119 H 21 H 145/84 H 100 08/27/20 15:17 08/27/20 16:00 08/27/20 16:00 08/27/20 16:00 08/27/20 16:00 Oxygen Flow Rate (L/min) 3 Oxygen Delivery Method Nasal Cannula Weight: 110 lb 14.28 oz Body Mass Index (BMI) 19.6 Intake and Output for Last 24 Hours 08/25/20 08/26/20 08/27/20 23:59 23:59 23:59 Intake Total 231.42 / 231.42 Balance 231.42 / 231.42 General: Awake, Alert, Oriented x 3, Cooperative, No Acute Distress HEENT: Atraumatic, Normocephalic, PERRL, EOMI, Sclera Non Icteric Neck: Supple, Good ROM, No JVD Lungs: Rhonchi Cardiovascular: Irregular Rhythm, Normal S1, Normal S2 Murmur Murmur: Grade 3/6, Harsh, Mid Systolic, LLSB, LVOT, Sternal Notch Vascular: No Carotid Bruits Abdomen: Bowel Sounds Present, Soft Extremities: Mild RLE Edema, Mild LLE Edema Neurological: No Focal Motor or Sensory Deficit Psych/Mental Status: Appropriate 08/27/20 10:30: WBC 10.6, RBC 3.41 L, Hgb 9.2 L, Hct 32.2 L, MCV 94.4, MCH 27.0, MCHC 28.6 L, Plt Count 230, MPV 11.5, Immature Gran % (Auto) 0.300, Neut % (Auto) 89.6 H, Lymph % (Auto) 3.7 L, [place] % (Auto) 5.8, Eos % (Auto) 0.4, Baso % (Auto) 0.2, Absolute Neuts (auto) 9.5 H, Nucleated RBC % 0 08/27/20 10:30: PT 12.4, INR 1.0, APTT 27.5 08/27/20 10:30: Sodium 137, Potassium 3.6, Chloride 94 L, Carbon Dioxide 43.0 H, Anion Gap 0 L, BUN 43 H, Creatinine 0.95, Est GFR (MDRD) Af Amer 72, Est GFR (MDRD) Non-Af 60, BUN/Creatinine Ratio 45.1 H, Glucose 167 H, Calcium 9.2, Magnesium 1.9, Total Bilirubin 0.30, Troponin I 0.025 08/27/20 10:30: B-Natriuretic Peptide 506.4 H 08/27/20 14:18: Troponin I 0.046 H 08/27/20 16:26: Troponin I 0.046 H Rhythm: Atrial flutter EKG: Atrial flutter with right bundle branch block Echocardiogram: 09-19-2019 Interpretation Summary Left ventricular systolic function is hyperdynamic. The estimated ejection fraction is 75 %. Mild concentric left ventricular hypertrophy. The left atrium is mildly enlarged. There is severe mitral annular calcification. Extension of the mitral annular calcification onto the posterior mitral valve leaflet. Mild diffuse mitral valve thickening. Moderate focal mitral valve calcification of the anterior leaflet. Mild mitral valve stenosis. Mild (1+) mitral valve insufficiency. Mild diffuse thickening of the tricuspid valve. Mild tricuspid valve insufficiency. Moderate aortic stenosis. Trivial pulmonic valve insufficiency. Calcified aortic root. Right ventricular systolic pressure estimated to be 58 mmHg. There is evidence of diastolic dysfunction. Late peaking spectral doppler pattern in the mid LV cavity area approaching 3.5 m/sec (PG of approximately 49 mmHg) c/w a hyperdynamic state. Stress Test Report Date: Procedure: Pharmacologic stress nuclear imaging study Indications: Chest pain; shortness of breath/dyspnea; abnormal ECG/right bundle branch block; aortic valve stenosis Consent: Per the patient Procedure: The patient underwent pharmacologic (Regadenoson) evaluation with a peak heart rate of 116 beats per minute (83 %predicted maximal heart rate) and a peak blood pressure of 160/80 mmHg. The baseline ECG demonstrated sinus rhythm; right bundle branch block. The peak pharmacologic ECG demonstrated no obvious ECG changes. There were occasional PVCs during infusion and recovery. There was no complaint of chest discomfort during pharmacologic infusion or recovery. The examination was discontinued secondary to completion of protocol. Impression: 1. Pharmacologic (Regadenoson) evaluation 2. Peak pharmacologic ECG with no obvious ECG changes. 3. There were occasional PVCs during infusion and recovery. 4. Nuclear images pending Myocardial perfusion imaging study: Technique: The patient was injected with 11.5 millicuries of technetium 99m Cardiolite and subsequently rest SPECT Cardiolite nuclear imaging was obtained in the horizontal long, vertical long, and short axis views. The patient underwent pharmacologic (Regadenoson) evaluation with a peak heart rate of 116 beats per minute (83 % percent predicted maximal heart rate) and a peak blood pressure of 160/80 mmHg. The patient was injected with 33.5 millicuries of technetium 99m Cardiolite and subsequently stress SPECT Cardiolite nuclear imaging was obtained in the horizontal long, vertical long, and short axis views. A gated Card iolite study at peak stress was obtained. Interpretation: Rest and stress SPECT Cardiolite nuclear imaging status post realignment, normalization, and attenuation correction demonstrate relative uniform tracer uptake and myocardial perfusion appearing within normal limits. There is end systolic thickening and brightening. The gated Cardiolite study demonstrates myocardial thickening and inward wall motion. The reported LVEF is 71 %. Impression: 1. Rest and stress SPECT Cardiolite nuclear imaging demonstrate relative uniform tracer uptake and myocardial perfusion appearing within normal limits. 2. The gated Cardiolite study reports an LVEF of 71 %. CXR: IMPRESSION: Emphysema with a left upper lobe pneumonia or mass. Clinical correlation and CT would be useful. Electronically Signed: Sam Araiza MD at 11:[address] Scan: FINDINGS: Normal enhancement of the main pulmonary artery and right and left pulmonary arteries. Normal enhancement of the bilateral peripheral pulmonary arteries. There is no demonstrated pulmonary embolism. There is atherosclerotic calcification of the aortic arch with tortuosity. There is no demonstrated aortic dissection. There is a small pericardial effusion. There are calcifications of the coronary arteries. Normal mediastinum. Normal hilar regions. Normal visualized trachea and bronchi. The lungs are well expanded. Mild bilateral apical scarring which is partially calcified. Mild edematous changes. Small right pleural effusion with right lower lobe atelectasis. Normal chest wall structures. Normal osseous structures. Normal visualized upper abdomen. CT/CTA Chest W/WO Contrast IMPRESSION: 1. No CT evidence of pulmonary embolism. 2. Small right pleural effusion with right lower lobe atelectasis. Electronically Signed: Sam Araiza MD at 12:47 EDT Assessment/Plan 1. Atrial flutter The patient is found to have atrial flutter. The etiology may be multifactorial. This may be a combination of her underlying age, cardiovascular condition, and pulmonary condition. At the moment she is on rate control therapy with beta-blockers, she has received IV digitalis, she is also receiving antiarrhythmic therapy with IV amiodarone. Her rate is coming under somewhat better control. She has been placed on anticoagulant therapy at this time with oral anticoagulant agents. 2. Valvular heart disease She does have underlying valvular heart disease as previously noted. Based upon her previous studies it was not felt she required further evaluation or care at that time leading to valvular intervention either percutaneous or surgical. Her valvular heart disease can be reassessed as needed with noninvasive studies such as echocardiogram. 3. Hyperlipidemia The patient will continue medical management as deemed appropriate. 4. Hypertension The patient blood pressure will need to be followed with adjustment of her medications as needed. 5. Diabetes mellitus The patient will continue evaluation care per internal medicine. 6. Chronic renal insufficiency This has to be taken into consideration with the patient's ongoing evaluation and care and adjustment of medications. 7. COPD The patient has a significant underlying COPD history with home oxygen therapy. This may be a major contributing factor to her atrial dysrhythmia. She will have to continue evaluation care by her other physicians for this. 8. Abnormal cardiac enzymes Of note, the patient does have indeterminate troponin I levels. This may be related to her atrial dysrhythmia with RVR superimposed upon her underlying cardiovascular condition as her pharmacologic stress nuclear imaging study performed last year was considered negative for any evidence of underlying CAD or myocardial ischemia. At the present time she will continue to be followed. Depending upon her clinical course and findings she may or may not require further noninvasive or invasive evaluation of her coronary anatomy. If she does eventually require invasive evaluation then her multiple medical conditions especially her underlying age with a frail cachectic appearing status along with her underlying renal insufficiency and COPD will have to be taken into consideration whether or not this is a type of evaluation the patient once as well as can go through. This note was generated using a voice recognition system and there may be incorrect words, spelling or punctuation that were not noted when reviewing the office note prior to saving. Procedure Criteria Procedure Type: Elective COVID Risk Discussion: The surgeon/proceduralist and patient have discussed in detail the risk of exposure to and/or potential harm posed by the COVID-19 virus with having a surgery/procedure at this time versus the risk of delaying the surgery/p rocedure. It is not possible to know either the risk of delaying the surgery or procedure or chance of getting an infection with perfect accuracy, but a joint decision was made between the patient and the surgeon/proceduralist to proceed at this time with the scheduled surgery/procedure as indicated on the consent form.
[2020-08-27] MEDS: Amiodarone 360 MG in Dextrose 5% Viaflo Bag 192.8 ML 16.7 MG CONT INF (18:53)
--- NOTE | 2020-08-27 19:35 | NURSING ---
New bag of iv amiodarone hung at this time d/t previous bag hung by prior rn leaking contents all over floor. Verified med with Katty sorensen rn.
[2020-08-27] MEDS: Pravastatin 20 MG Tablet PO (21:34)
[2020-08-27] MEDS: APIXABAN 2.5 MG TABLET PO (21:34)
[2020-08-27] MEDS: Digoxin 250 MCG/ML Ampul IV (21:39)
[2020-08-27] MEDS: 0.9% Saline Lock 10 ML Syringe IV (21:40)
[2020-08-28] VITALS (23 sets, daily range): BP systolic 117–157; BP diastolic 47–81; PULSE 64–110; RESP 16–25; TEMP 36.1–36.8; O2SAT 94–100
--- NOTE | 2020-08-28 05:55 | EKG12_ITS ---
Test Reason : CP REPEAT Blood Pressure : / mmHG Vent. Rate : 141 BPM Atrial Rate : 282 BPM P-R Int : 000 ms QRS Dur : 132 ms QT Int : 340 ms P-R-T Axes : 141 113 -60 degrees QTc Int : 520 ms Suspect arm lead reversal, interpretation assumes no reversal Atrial flutter Right bundle branch block Septal infarct , age undetermined T wave abnormality, consider inferolateral ischemia Abnormal ECG When compared with ECG of 27-AUG-2020 10:02, MANUAL COMPARISON REQUIRED, DATA IS UNCONFIRMED Confirmed by SAM COOPER, IVA ([id number]), publishing editor DARIAN RAMIREZ ([id number]) on 08/30/2020 8:31:40 AM Referred By: LUCIANO Confirmed By:BLANCA VARGAS MD
[2020-08-28] MEDS: Amiodarone 360 MG in Dextrose 5% Viaflo Bag 192.8 ML 16.7 MG CONT INF (06:29)
[2020-08-28 07:46] LABS: Absolute Lymphocyte Count 0.63 X10^3/uL (0.83-4.51); Absolute Neutrophil Count 7.6 X10^3/uL (2.0-7.7); Basophil# 0.04 X10^3/uL; Basophil% 0.4 % (0-1); Eosinophil# 0.11 X10^3/uL; Eosinophils% 1.2 % (0-5); Hematocrit 31.2 % (37-47); Hemoglobin 8.9 g/dL (12.0-15.0); Lymphocyte # 0.63 X10^3/ul (0.83-4.51); Mean Corp Hgb Conc 28.5 g/dL (32-36); Mean Corpuscular Hgb 26.8 pg (27.0-32.0); Mean Platelet Vol. 12.2 fl (6.2-12.0); Monocyte# 0.61 X10^3/uL; Monocyte% 6.8 % (0-10); NRBC Flagged by Analyzer 0 % (0-5); Neutrophil % 84.4 % (47-70); Platelet Count 236 K/mm3 (150-450); RBC Distribution Width CV 13.2 % (11.6-14.6); RBC Distribution Width SD 45.4 fl (35.1-43.9); Red Blood Count 3.32 M/mm3 (4.2-5.4)
[2020-08-28 08:18] LABS: BUN 42 mg/dL (7-18); Creatinine, Serum 1.01 mg/dL (0.55-1.02); Glucose 134 mg/dL (74-106)
[2020-08-28 08:19] LABS: Anion Gap 0 (5-15); BUN/Creat Ratio 41.6 RATIO (10-20); Calcium,Total 9.5 mg/dL (8.5-10.1); Chloride 93 mmol/L (98-107); Cholesterol 130 mg/dL (200); EST Glomerular Filtration Rate 56 mL/min (>60); Est Glom Filt Rate - Afr Amer 67 mL/min (>60); High Density Lipoprotein 56 mg/dL; Potassium 4.2 mmol/L (3.5-5.1); Sodium Level 138 mmol/L (136-145); Triglycerides 84 mg/dL; Very Low Density Lipoprotein 17 mg/dL (5-40)
--- NOTE | 2020-08-28 09:35 | CASEMGMT ---
RN SAMINA FRAME TRIMMER CM to room to meet with patient for initial transition planning/care coordination assessment. RN SAMINA introduced self and role at [facility]. Pt voices understanding and consents to assessment at this time. Pt resting in bed in no distress at this time. Pt is A/O at this time and answers all questions appropriately. Care providers, pharmacy, and demographics verified/updated at this time. PCP: Dr Bruce Specialists: None Preferred Pharmacy: [facility] [facility] Prescription Benefit: Yes Living Will/HPOA: Pt does not currently have LW/HCPOA and declines info at this time. LNOK: , Riaz. Son, Kwaku Living Arrangements: Lives w/her in one-story home w/1-2 steps to enter. States she is independent w/ADL's. /pt share home mgmt tasks. Transportation: DME: States has the following DME: shower chair, rails/grab bars, walker. Has O2 through [employer]. Pt states she does not remember liter flow. States she wears at HS only. Has concentrator only/does not have portable O2 tanks. Pt states no need for further DME at this time. HHC/SNF: No history of either. Pt denies need for HHC or any therapy. Pt wishes to return home and states has no concerns with going home at time of discharge. Pt voices no concerns/needs at this time. Advised pt to ask for CM if any questions/concerns/needs arise. Voices understanding. PLAN: Home PT/OT evals pendings. CM to follow for any discharge planning/needs. Alek CARRASCO RN, CM
[2020-08-28] MEDS: metFORMIN HCl 500 MG Tablet PO (09:44)
[2020-08-28] MEDS: PARoxetine 10 MG Tablet 30 MG PO (09:45)
[2020-08-28] MEDS: Metoprolol Tartrate 50 MG Tablet PO ×2 (09:45→20:36)
[2020-08-28] MEDS: Aspirin E.C. 81 MG Tablet PO (09:45)
[2020-08-28] MEDS: hydroCHLOROthiazide 12.5mg 12.5 MG PO (09:45)
[2020-08-28] MEDS: APIXABAN 2.5 MG TABLET PO ×2 (09:46→20:36)
[2020-08-28] MEDS: Amiodarone 200 MG Tablet PO ×2 (13:15→20:36)
--- NOTE | 2020-08-28 17:31 | PCM.PN.CARD ---
Subjectve: The patient was evaluated earlier this day. She appears to be resting comfortably at that time with no acute complaints. Objective: Vital Signs Temp Pulse Resp BP Pulse Ox 98.3 F 92 17 130/70 H 99 08/28/20 13:00 08/28/20 15:04 08/28/20 13:00 08/28/20 13:00 08/28/20 13:00 Oxygen Flow Rate (L/min) 2 Oxygen Delivery Method Nasal Cannula Weight: 110 lb 14.28 oz Body Mass Index (BMI) 19.6 Intake and Output for Last 24 Hours 08/26/20 08/27/20 08/28/20 23:59 23:59 23:59 Intake Total 636.92 / 653.62 713.80 / 713.80 Balance 636.92 / 653.62 713.80 / 713.80 General: Awake, Cooperative, No Acute Distress, - - Frail and cachectic appearing HEENT: Atraumatic, Normocephalic, PERRL, EOMI, Sclera Non Icteric Neck: Supple, Good ROM, No JVD Lungs: Rhonchi Cardiovascular: Irregular Rhythm, Normal S1, Normal S2 Abdomen: Bowel Sounds Present, Soft Extremities: Mild RLE Edema, Mild LLE Edema Neurological: No Focal Motor or Sensory Deficit Psych/Mental Status: Appropriate 08/28/20 06:30: WBC 9.0, RBC 3.32 L, Hgb 8.9 L, Hct 31.2 L, MCV 94.0, MCH 26.8 L, MCHC 28.5 L, Plt Count 236, MPV 12.2 H, Immature Gran % (Auto) 0.200, Neut % (Auto) 84.4 H, Lymph % (Auto) 7.0 L, [place] % (Auto) 6.8, Eos % (Auto) 1.2, Baso % (Auto) 0.4, Absolute Neuts (auto) 7.6, Nucleated RBC % 0 08/28/20 06:30: Sodium 138, Potassium 4.2, Chloride 93 L, Carbon Dioxide 45.0 H, Anion Gap 0 L, BUN 42 H, Creatinine 1.01, Est GFR (MDRD) Af Amer 67, Est GFR (MDRD) Non-Af 56 L, BUN/Creatinine Ratio 41.6 H, Glucose 134 H, Calcium 9.5, Troponin I 0.053 H, Triglycerides 84, Cholesterol 130, LDL Cholesterol 57, VLDL Cholesterol 17, HDL Cholesterol 56 Rhythm: Atrial flutter Medical Necessity - Tobacco Use Smoking Status: Former smoker Assessment/Plan 1. Atrial flutter The patient is found to have atrial flutter. The etiology may be multifactorial. This may be a combination of her underlying age, cardiovascular condition, and pulmonary condition. Is continuing rate control therapy. Her IV amiodarone is being converted to oral amiodarone. She has been placed on anticoagulant therapy at this time with oral anticoagulant agents. 2. Valvular heart disease She does have underlying valvular heart disease as previously noted. Based upon her previous studies it was not felt she required further evaluation or care at that time leading to valvular intervention either percutaneous or surgical. Her valvular heart disease can be reassessed as needed with noninvasive studies such as echocardiogram. 3. Hyperlipidemia The patient will continue medical management as deemed appropriate. 4. Hypertension The patient blood pressure will need to be followed with adjustment of her medications as needed. 5. Diabetes mellitus The patient will continue evaluation care per internal medicine. 6. Chronic renal insufficiency This has to be taken into consideration with the patient's ongoing evaluation and care and adjustment of medications. 7. COPD The patient has a significant underlying COPD history with home oxygen therapy. This may be a major contributing factor to her atrial dysrhythmia. She will have to continue evaluation care by her other physicians for this. 8. Abnormal cardiac enzymes Of note, the patient does have indeterminate troponin I levels. This may be related to her atrial dysrhythmia with RVR superimposed upon her underlying cardiovascular condition as her pharmacologic stress nuclear imaging study performed last year was considered negative for any evidence of underlying CAD or myocardial ischemia. At the present time she will continue to be followed. Depending upon her clinical course and findings she may or may not require further noninvasive or invasive evaluation of her coronary anatomy. If she does eventually require invasive evaluation then her multiple medical conditions especially her underlying age with a frail cachectic appearing status along with her underlying renal insufficiency and COPD will have to be taken into consideration whether or not this is a type of evaluation the patient once as well as can go through. Comment: The patient's case was discussed and reviewed with Dr. Wall. This note was generated using a voice recognition system and there may be incorrect words, spelling or punctuation that were not noted when reviewing the office note prior to saving.
--- NOTE | 2020-08-28 17:45 | PCM.PN.HOSP ---
Patient Problems: Active and Suspected Problems (Last Reviewed 11/17/19 @ 14:38 by Carmela Ambrocio) Atrial flutter with rapid ventricular response (Acute) Right heart failure (Acute) Pleural effusion, right (Acute) Abnormal cardiac enzyme level (Acute) Reason for Visit: Follow-up for atrial flutter with RVR Objective: Patient heart rate is controlled but is still in atrial flutter 3-1 conduction Heart rate is around 90s. Patient shortness of breath is improved. Leg edema is also improved. Physical exam General: Awake, alert and oriented x3. BMI 19.6 kg/m? HEENT: Atraumatic, PERRLA, EOMI, Normocephalic Oral: No Gingival or Mucosal Lesions/ Ulcerations Neck: Supple, No JVD, Negative Carotid Bruits Lungs: Air entry diminished in bilateral lung bases. No crepitation/rhonchi Cardiovascular: Irregular rate and rhythm normal S1, Normal S2, ejection systolic murmur over right second ICS, left lower sternal border present Abdomen: Bowel Sounds Present, Soft, Non Tender, Non-Distended : No renal angle tenderness. No suprapubic tenderness. Extremities: Mild bilateral lower leg edema, Capillary Refill Less than 3 Seconds Skin: No rashes, No breakdown Musculoskeletal: No Tenderness to Palpation of Joints or Extremities Neurological: Cranial nerves II-XII grossly intact, Deep Tendon Reflexes 2+/4 and Symmetrical, Neuro grossly intact Psych/Mental Status: Flat affect. Vitals/I&O's: Vital Signs Temp Pulse Resp BP Pulse Ox 98.3 F 92 17 130/70 H 99 08/28/20 13:00 08/28/20 15:04 08/28/20 13:00 08/28/20 13:00 08/28/20 13:00 Oxygen Flow Rate (L/min) 2 Oxygen Delivery Method Nasal Cannula Weight: 110 lb 14.28 oz Body Mass Index (BMI) 19.6 Intake and Output for Last 24 Hours 08/26/20 08/27/20 08/28/20 23:59 23:59 23:59 Intake Total 636.92 / 653.62 713.80 / 713.80 Balance 636.92 / 653.62 713.80 / 713.80 Laboratory Results 08/28/20 06:30: WBC 9.0, RBC 3.32 L, Hgb 8.9 L, Hct 31.2 L, MCV 94.0, MCH 26.8 L, MCHC 28.5 L, RDW Std Deviation 45.4 H, RDW Coeff of Lul 13.2, Plt Count 236, MPV 12.2 H, Immature Gran % (Auto) 0.200, Neut % (Auto) 84.4 H, Lymph % (Auto) 7.0 L, [place] % (Auto) 6.8, Eos % (Auto) 1.2, Baso % (Auto) 0.4, Absolute Neuts (auto) 7.6, Absolute Lymphs (auto) 0.63 L, Nucleated RBC % 0 08/28/20 06:30: Sodium 138, Potassium 4.2, Chloride 93 L, Carbon Dioxide 45.0 H, Anion Gap 0 L, BUN 42 H, Creatinine 1.01, Estim Creat Clear Calc 34.10, Est GFR (MDRD) Af Amer 67, Est GFR (MDRD) Non-Af 56 L, BUN/Creatinine Ratio 41.6 H, Glucose 134 H, Calcium 9.5, Troponin I 0.053 H, Triglycerides 84, Cholesterol 130, LDL Cholesterol 57, VLDL Cholesterol 17, HDL Cholesterol 56 Current Medications Acetaminophen (Acetaminophen 325 Mg Tablet) 650 mg PO Q6H PRN PRN PRN Reason: Pain Score 1-10/Temp > 100.7 F Amiodarone HCl (Amiodarone 200 Mg Tablet) 200 mg PO TID [facility] Stop: 09/03/20 22:01 Last Admin: 08/28/20 13:15 Dose: 200 mg Documented by: Amiodarone HCl (Amiodarone 200 Mg Tablet) 200 mg PO BID [facility] Stop: 09/17/20 22:01 Amiodarone HCl (Amiodarone 200 Mg Tablet) 200 mg PO DAILY [facility] Apixaban (Apixaban 2.5 Mg Tablet) 2.5 mg PO BID [facility] Last Admin: 08/28/20 09:46 Dose: 2.5 mg Documented by: Aspirin (Aspirin E.C. 81 Mg Tablet) 81 mg PO DAILY@0800 [facility] Last Admin: 08/28/20 09:45 Dose: 81 mg Documented by: Hydrochlorothiazide (Hydrochlorothiazide 12.5mg) 12.5 mg PO DAILY [facility] Last Admin: 08/28/20 09:45 Dose: 12.5 mg Documented by: Lorazepam (Lorazepam 0.5 Mg Tablet) 0.5 mg PO BID PRN PRN Reason: ANXIETY/AGITATION Melatonin (Melatonin 3 Mg Tablet) 3 mg PO QHS PRN PRN PRN Reason: INSOMNIA Metformin HCl (Metformin Hcl 500 Mg Tablet) [facility] Last Admin: 08/28/20 09:44 Dose: 500 mg Documented by: Metoprolol Tartrate (Metoprolol Tartrate 50 Mg Tablet) 50 mg PO BID [facility] Last Admin: 08/28/20 09:45 Dose: 50 mg Documented by: Morphine Sulfate (Morphine 2 Mg/Ml Syringe) 2 mg IV Q3H PRN PRN PRN Reason: Pain Score 6-10 Nitroglycerin (Nitroglycerin (Inpatient Use) 0.4 Mg Tab.Subl) 0.4 mg SL Q5M PRN PRN Reason: CARDIAC/CHEST PAIN Oxycodone HCl (Oxycodone 5 Mg Tablet) 5 mg PO Q4H PRN PRN PRN Reason: Pain Score 4-5 Paroxetine HCl (Paroxetine 10 Mg Tablet) 30 mg PO DAILY [facility] Last Admin: 08/28/20 09:45 Dose: 30 mg Documented by: Polyethylene Glycol (Polyethylene Glycol 3350 17 Gm Packet) 17 gm PO DAILY [facility] Last Admin: 08/28/20 09:46 Dose: Not Given Documented by: Pravastatin Sodium (Pravastatin 20 Mg Tablet) 20 mg PO DAILY@2200 [facility] Last Admin: 08/27/20 21:34 Dose: 20 mg Documented by: Prochlorperazine Edisylate (Prochlorperazine 10 Mg/2 Ml Vial) 5 mg IV Q4H PRN PRN PRN Reason: Breakthrough Nausea/Vomiting Senna/Docusate Sodium (Senna/Docusate Sodium 1 Tablet) 2 tablet PO BID PRN PRN PRN Reason: Constipation Sodium Chloride (0.9% Saline Lock 10 Ml Syringe) 10 - 40 ml IV UD PRN PRN Reason: SALINE FLUSH Last Admin: 08/27/20 21:40 Dose: 20 ml Documented by: STROKE Vital Signs/Narrative: Vital Signs Pulse 08/28/20 15:04 92 Medical Necessity - Tobacco Use Smoking Status: Former smoker Assessment/Plan All Active Problems (Last Reviewed 11/17/19 @ 14:38 by Carmela Ambrocio) Atrial flutter with rapid ventricular response (Acute) Right heart failure (Acute) Pleural effusion, right (Acute) Abnormal cardiac enzyme level (Acute) The patient is a 80 year old F with 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 EKG shows atrial flutter with ventricular rate 154 beats per. QRS 122 ms, right bundle branch block, QTC 490 ms. Previous EKG November 2019 shows sinus bradycardia 58 bpm, right bundle branch block, RVH with right axis deviation. Chest x-ray and then chest CTA was done which did not show evidence of pulmonary embolism but a small right pleural effusion and right lower lobe atelectasis. 1. New onset of atrial flutter with RVR, chronic right bundle branch block: Patient is being admitted in PCU. ER physician discussed with Dr. Laureano. Patient did not respond with diltiazem therefore started on amiodarone. Continue metoprolol from tartrate 50 mg twice daily. Repeat EKG. TSH normal. First troponin normal. 08/28: Electrolytes in normal range. Patient is started on amiodarone 200 mg 3 times daily tapering dose. Mildly elevated troponin probably due to A. fib with RVR. Fasting profile within normal limit. 2. Acute on chronic diastolic heart failure/HFpEF, mild right pleural effusion with acute on chronic right ventricular failure and moderate pulmonary hypertension Mild MR, mild TR, moderate aortic stenosis: Last echo in 09/2019 shows EF 75%, hyperdynamic LV, mild concentric LVH, mild MR, mild TR, moderate aortic stenosis, RVSP 58 mmHg. Patient had Lasix 60 mg IV in the ER. 08/28: BUN 42, bicarb 45, creatinine 1.01. On HCTZ 12.5 mg daily. 620 mg IV 1 dose given. Leg edema and shortness of breath is improving. 3. COPD/emphysema with chronic hypoxic respiratory failure: We will continue bronchodilator as needed. Avoid albuterol for tachycardia. 4. Diabetes mellitus type 2: Glucose 134. 5. CKD stage IIIb: Her estimated creatinine clearance is 32.69. No previous labs to compare. Denies change in the urine output or new urinary tract symptoms 6. Severe protein calorie malnutrition probably from emphysema/COPD: BMI 19.6 kg/m? with a diffuse loss of extremity muscle mass and loss of subcutaneous fat. Other comorbidities include essential hypertension, dyslipidemia: Home medication reconciliation done. Living will/advanced directive/end of life care: Patient does not have living will or advanced directive. Her is next to kin/power of attorney recruiter for health. After discussion of benefits/risks procedures involved with full code, DNR CC arrest and DNR CC, the patient opted for DNR-CC Arrest with no intubation Patient does not want artificial life support including intubation, tube feed, ventilator and/chest compression, central venous catheter, vasopressor and DC shock if needed Total time spent in [id number] encounter in discussion of advanced directive 16 minutes. Laboratory Results 08/28/20 06:30: WBC 9.0, RBC 3.32 L, Hgb 8.9 L, Hct 31.2 L, MCV 94.0, MCH 26.8 L, MCHC 28.5 L, RDW Std Deviation 45.4 H, RDW Coeff of Lul 13.2, Plt Count 236, MPV 12.2 H, Immature Gran % (Auto) 0.200, Neut % (Auto) 84.4 H, Lymph % (Auto) 7.0 L, [place] % (Auto) 6.8, Eos % (Auto) 1.2, Baso % (Auto) 0.4, Absolute Neuts (auto) 7.6, Absolute Lymphs (auto) 0.63 L, Nucleated RBC % 0 08/28/20 06:30: Sodium 138, Potassium 4.2, Chloride 93 L, Carbon Dioxide 45.0 H, Anion Gap 0 L, BUN 42 H, Creatinine 1.01, Estim Creat Clear Calc 34.10, Est GFR (MDRD) Af Amer 67, Est GFR (MDRD) Non-Af 56 L, BUN/Creatinine Ratio 41.6 H, Glucose 134 H, Calcium 9.5, Troponin I 0.053 H, Triglycerides 84, Cholesterol 130, LDL Cholesterol 57, VLDL Cholesterol 17, HDL Cholesterol 56 Inpatient E&M: 42377 Subs Hosp L2
[2020-08-28] MEDS: 0.9% Saline Lock 10 ML Syringe IV (18:28)
[2020-08-28] MEDS: Furosemide 20 MG/2 ML VIAL IV (18:28)
[2020-08-28] MEDS: Pravastatin 20 MG Tablet PO (20:36)
[2020-08-29] VITALS (11 sets, daily range): BP systolic 134–144; BP diastolic 53–85; PULSE 64–100; RESP 16; TEMP 36.3–36.6; O2SAT 92–100
[2020-08-29] MEDS: Amiodarone 200 MG Tablet PO ×2 (06:07→13:48)
[2020-08-29 06:25] LABS: BUN 44 mg/dL (7-18); BUN/Creat Ratio 36.7 RATIO (10-20); Calcium,Total 9.1 mg/dL (8.5-10.1); Carbon Dioxide > 45.0 mmol/L (21.0-32.0); Chloride 94 mmol/L (98-107); EST Glomerular Filtration Rate 46 mL/min (>60); Est Glom Filt Rate - Afr Amer 55 mL/min (>60); Glucose 148 mg/dL (74-106); Magnesium 1.8 mg/dL (1.6-2.6); Potassium 4.1 mmol/L (3.5-5.1); Sodium Level 140 mmol/L (136-145)
[2020-08-29] MEDS: Metoprolol Tartrate 50 MG Tablet PO (08:45)
[2020-08-29] MEDS: Aspirin E.C. 81 MG Tablet PO (08:45)
[2020-08-29] MEDS: APIXABAN 2.5 MG TABLET PO (08:45)
[2020-08-29] MEDS: PARoxetine 10 MG Tablet 30 MG PO (08:45)
--- NOTE | 2020-08-29 11:35 | PCM.DC ---
- Discharge Diagnoses Current Active Problems: Current Active and Chronic Problems (Last Reviewed 11/17/19 @ 14:38 by Carmela Ambrocio) Atrial flutter with rapid ventricular response (Acute) Right heart failure (Acute) Chronic kidney disease (CKD) (Chronic) Pleural effusion, right (Acute) Mitral valve disorder (Chronic) Abnormal cardiac enzyme level (Acute) RBBB (right bundle branch block) (Chronic) Nonrheumatic aortic (valve) stenosis (Chronic) Mild COPD (chronic obstructive pulmonary disease) (Chronic) CKD (chronic kidney disease) stage 3, GFR 30-59 ml/min (Chronic) Type 2 diabetes mellitus (Chronic) Essential hypertension (Chronic) Mixed hyperlipidemia (Chronic) You will use the following diet at home:: Calorie/Carbohydrate Controlled (specify 1200, 1400, etc) - Carb controlled diet, Cardiac Your food should be the consistency of: Regular Discharge Activity: May Not Drive Additional Instructions: Metformin was discontinued for creatinine clearance less than 30 mils per minute Can resume once her team clearance improves. Allergies/Adverse Reactions: Allergies lisinopril Adverse Reaction (Severe, Verified 08/27/20 09:51) lightheaded, not feel well Medications to take at Discharge albuterol sulfate 90 mcg/actuation aerosol inhaler 2 puff INHALATION Q6H PRN 06/27/19 budesonide-formoterol HFA 80 mcg-4.5 mcg/actuation aerosol inhaler 2 puff INHALATION BID 06/27/19 clobetasol 0.05 % topical ointment 1 applic TOPICAL DAILY PRN 06/27/19 hydrochlorothiazide 25 mg tablet 25 mg PO DAILY 06/27/19 paroxetine HCl 30 mg tablet 30 mg PO DAILY 06/27/19 pravastatin 20 mg tablet 20 mg PO DAILY 06/27/19 cholecalciferol (vitamin D3) 50 mcg (2,000 unit) capsule 2,000 unit PO DAILY 08/24/19 lorazepam 0.5 mg tablet 0.5 mg PO BID 11/17/19 Escitalopram Oxalate [Lexapro] 10 mg PO DAILY 08/27/20 Amiodarone HCl [Cordarone] 200 mg PO BID tablet 08/29/20 Amiodarone HCl [Cordarone] 200 mg PO DAILY #0 tablet 08/29/20 Amiodarone HCl [Cordarone] 200 mg PO TID #100 tablet 04/22/21 Apixaban [Eliquis] 2.5 mg PO BID #60 tablet 08/29/20 Furosemide [Lasix] 20 mg PO Q OTHER DAY #30 tab 08/29/20 Metoprolol Tartrate [Lopressor (beta alexandra)] 50 mg PO BID #60 tablet 08/29/20 The following prescriptions were given: Amiodarone HCl [Cordarone] 200 mg PO TID #100 tablet Transmission Status: Pending to [facility] #30 Apixaban [Eliquis] 2.5 mg PO BID #60 tablet Transmission Status: Pending to [facility] #30 Metoprolol Tartrate [Lopressor (beta alexandra)] 50 mg PO BID #60 tablet Transmission Status: Pending to [facility] #30 Primary Care Physician: Amado Bruce MD [Primary Care Provider] - Please follow up with your Primary Care Physician in: In 1 to 2 weeks Test Results: Test results from this visit will be discussed in further detail at your follow-up appointment, if applicable. Please Follow Up With: Riaz Laureano MD When: In 4 weeks
--- NOTE | 2020-08-29 12:19 | CASEMGMT ---
Per Lata at [facility], pt's order is for 3L continous. Pt to be tested on this for discharge and Carmela aware. Abran LORENZANA CM
--- NOTE | 2020-08-29 14:51 | PCM.DC.SUM ---
Discharge Date and Diagnosis - Problem List Patient Problems: Active and Suspected Problems (Last Reviewed 11/17/19 @ 14:38 by Carmela Ambrocio) Atrial flutter with rapid ventricular response (Acute) Right heart failure (Acute) Pleural effusion, right (Acute) Abnormal cardiac enzyme level (Acute) Date of Admission: 08/27/20 Date of Discharge: 08/29/20 - Primary Discharge Diagnosis Acute Problems: Active Problems (Last Reviewed 11/17/19 @ 14:38 by Carmela Ambrocio) Atrial flutter with rapid ventricular response (Acute) Right heart failure (Acute) Pleural effusion, right (Acute) Abnormal cardiac enzyme level (Acute) - Secondary Discharge Diagnosis Chronic Problems: Chronic Problems (Last Reviewed 11/17/19 @ 14:38 by Carmela Ambrocio) Chronic kidney disease (CKD) (Chronic) Mitral valve disorder (Chronic) RBBB (right bundle branch block) (Chronic) Nonrheumatic aortic (valve) stenosis (Chronic) Mild COPD (chronic obstructive pulmonary disease) (Chronic) CKD (chronic kidney disease) stage 3, GFR 30-59 ml/min (Chronic) Type 2 diabetes mellitus (Chronic) Essential hypertension (Chronic) Mixed hyperlipidemia (Chronic) Hospital Course and Treatment Summary of Care Provided: [] The patient is a 80 year old F with 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 EKG shows atrial flutter with ventricular rate 154 beats per. QRS 122 ms, right bundle branch block, QTC 490 ms. Previous EKG November 2019 shows sinus bradycardia 58 bpm, right bundle branch block, RVH with right axis deviation. Chest x-ray and then chest CTA was done which did not show evidence of pulmonary embolism but a small right pleural effusion and right lower lobe atelectasis. 1. New onset of atrial flutter with RVR, chronic right bundle branch block: Patient is being admitted in PCU. ER physician discussed with Dr. Laureano. Patient did not respond with diltiazem therefore started on amiodarone. Continue metoprolol from tartrate 50 mg twice daily. Repeat EKG. TSH normal. First troponin normal. Serum potassium, sodium and magnesium normal. Bicarb increased to 45 therefore Lasix is on hold just above metabolic alkalosis due to diuretic. Patient advised to hold Lasix for 3 more days and then resume 20 mg every other day. Patient was a started on tapering dose of amiodarone. Prescription given. Mildly elevated troponin probably due to A. fib with RVR. Fasting profile within normal limit. 2. Acute on chronic diastolic heart failure/HFpEF, mild right pleural effusion with acute on chronic right ventricular failure and moderate pulmonary hypertension Mild MR, mild TR, moderate aortic stenosis: Last echo in 09/2019 shows EF 75%, hyperdynamic LV, mild concentric LVH, mild MR, mild TR, moderate aortic stenosis, RVSP 58 mmHg. Patient had Lasix 60 mg IV in the ER. Leg edema resolved. Patient on HCTZ 25 mg daily COPD/emphysema with chronic hypoxic respiratory failure: Continue home bronchodilator. Patient on baseline 3 L of home oxygen 4. Diabetes mellitus type 2: Glucose 134. Metformin controlled. Metformin discontinued because of creatinine clearance less than 30 mils per minute 5. CKD stage IIIb: Her estimated creatinine clearance is 32.69. No previous labs to compare. Denies change in the urine output or new urinary tract symptoms 6. Severe protein calorie malnutrition probably from emphysema/COPD: BMI 19.6 kg/m? with a diffuse loss of extremity muscle mass and loss of subcutaneous fat. Other comorbidities include essential hypertension, dyslipidemia: Home medication reconciliation done Advanced directive discussed. Patient to DNRCC arrest Discharge medication reconciliation done. Discharge follow-up instructions completed. Discharge process discussed with the patient and all questions were answered to patient's satisfaction. Total time spent, exact 35 minutes on discharge meds reconciliation, examination, coordination of care with nurses and ancillary staff, review of imaging and blood test and discussion with the patient on follow-up instructions Patient Problems: Active and Suspected Problems (Last Reviewed 11/17/19 @ 14:38 by Carmela Ambrocio) Atrial flutter with rapid ventricular response (Acute) Right heart failure (Acute) Pleural effusion, right (Acute) Abnormal cardiac enzyme level (Acute) Objective: Patient symptoms of shortness of breath, leg swelling has improved. Heart rate is controlled. planning manager shows atrial flutter, heart rate is controlled in the 70s. Physical exam General: Awake, alert and oriented x3. BMI 19.6 kg/m? HEENT: Atraumatic, PERRLA, EOMI, Normocephalic Oral: No Gingival or Mucosal Lesions/ Ulcerations Neck: Supple, No JVD, Negative Carotid Bruits Lungs: Air entry diminished in bilateral lung bases. No crepitation/rhonchi Cardiovascular: Irregular rate and rhythm normal S1, Normal S2, ejection systolic murmur over right second ICS, left lower sternal border present Abdomen: Bowel Sounds Present, Soft, Non Tender, Non-Distended : No renal angle tenderness. No suprapubic tenderness. Extremities: Bilateral edema resolved, Capillary Refill Less than 3 Seconds Skin: No rashes, No breakdown Musculoskeletal: No Tenderness to Palpation of Joints or Extremities Neurological: Cranial nerves II-XII grossly intact, Deep Tendon Reflexes 2+/4 and Symmetrical, Neuro grossly intact Psych/Mental Status: Flat affect. - Physical Exam Vitals/I&O's: Vital Signs Temp Pulse Resp BP Pulse Ox 97.7 F L 76 16 144/53 H 99 08/29/20 14:28 08/29/20 14:28 08/29/20 14:28 08/29/20 14:28 08/29/20 14:28 Oxygen Flow Rate (L/min) 2 Oxygen Delivery Method Nasal Cannula Weight: 110 lb 14.28 oz Body Mass Index (BMI) 19.6 Intake and Output for Last 24 Hours 08/27/20 08/28/20 08/29/20 23:59 23:59 23:59 Intake Total 636.92 / 653.62 1193.80 / 1293.80 340 / 340 Output Total 200 / 200 Balance 636.92 / 653.62 1193.80 / 1293.80 140 / 140 Laboratory Results 08/29/20 05:10: Sodium 140, Potassium 4.1, Chloride 94 L, Carbon Dioxide > 45.0 H*, Anion Gap TNP, BUN 44 H, Creatinine 1.20 H, Estim Creat Clear Calc 28.70, Est GFR (MDRD) Af Amer 55 L, Est GFR (MDRD) Non-Af 46 L, BUN/Creatinine Ratio 36.7 H, Glucose 148 H, Calcium 9.1, Magnesium 1.8 Current Medications Acetaminophen (Acetaminophen 325 Mg Tablet) 650 mg PO Q6H PRN PRN PRN Reason: Pain Score 1-10/Temp > 100.7 F Amiodarone HCl (Amiodarone 200 Mg Tablet) 200 mg PO TID [facility] Stop: 09/03/20 22:01 Last Admin: 08/29/20 13:48 Dose: 200 mg Documented by: Amiodarone HCl (Amiodarone 200 Mg Tablet) 200 mg PO BID [facility] Stop: 09/17/20 22:01 Amiodarone HCl (Amiodarone 200 Mg Tablet) 200 mg PO DAILY [facility] Apixaban (Apixaban 2.5 Mg Tablet) 2.5 mg PO BID [facility] Last Admin: 08/29/20 08:45 Dose: 2.5 mg Documented by: Aspirin (Aspirin E.C. 81 Mg Tablet) 81 mg PO DAILY@0800 [facility] Last Admin: 08/29/20 08:45 Dose: 81 mg Documented by: Lorazepam (Lorazepam 0.5 Mg Tablet) 0.5 mg PO BID PRN PRN Reason: ANXIETY/AGITATION Melatonin (Melatonin 3 Mg Tablet) 3 mg PO QHS PRN PRN PRN Reason: INSOMNIA Metoprolol Tartrate (Metoprolol Tartrate 50 Mg Tablet) 50 mg PO BID [facility] Last Admin: 08/29/20 08:45 Dose: 50 mg Documented by: Morphine Sulfate (Morphine 2 Mg/Ml Syringe) 2 mg IV Q3H PRN PRN PRN Reason: Pain Score 6-10 Nitroglycerin (Nitroglycerin (Inpatient Use) 0.4 Mg Tab.Subl) 0.4 mg SL Q5M PRN PRN Reason: CARDIAC/CHEST PAIN Oxycodone HCl (Oxycodone 5 Mg Tablet) 5 mg PO Q4H PRN PRN PRN Reason: Pain Score 4-5 Paroxetine HCl (Paroxetine 10 Mg Tablet) 30 mg PO DAILY [facility] Last Admin: 08/29/20 08:45 Dose: 30 mg Documented by: Polyethylene Glycol (Polyethylene Glycol 3350 17 Gm Packet) 17 gm PO DAILY [facility] Last Admin: 08/29/20 08:45 Dose: Not Given Documented by: Pravastatin Sodium (Pravastatin 20 Mg Tablet) 20 mg PO DAILY@2200 [facility] Last Admin: 08/28/20 20:36 Dose: 20 mg Documented by: Prochlorperazine Edisylate (Prochlorperazine 10 Mg/2 Ml Vial) 5 mg IV Q4H PRN PRN PRN Reason: Breakthrough Nausea/Vomiting Senna/Docusate Sodium (Senna/Docusate Sodium 1 Tablet) 2 tablet PO BID PRN PRN PRN Reason: Constipation Sodium Chloride (0.9% Saline Lock 10 Ml Syringe) 10 - 40 ml IV UD PRN PRN Reason: SALINE FLUSH Last Admin: 08/28/20 18:28 Dose: 10 ml Documented by: Discharge Activity: May Not Drive Home Medications: Medications to take at Discharge albuterol sulfate 90 mcg/actuation aerosol inhaler 2 puff INHALATION Q6H PRN 06/27/19 budesonide-formoterol HFA 80 mcg-4.5 mcg/actuation aerosol inhaler 2 puff INHALATION BID 06/27/19 clobetasol 0.05 % topical ointment 1 applic TOPICAL DAILY PRN 06/27/19 hydrochlorothiazide 25 mg tablet 25 mg PO DAILY 06/27/19 paroxetine HCl 30 mg tablet 30 mg PO DAILY 06/27/19 pravastatin 20 mg tablet 20 mg PO DAILY 06/27/19 cholecalciferol (vitamin D3) 50 mcg (2,000 unit) capsule 2,000 unit PO DAILY 08/24/19 lorazepam 0.5 mg tablet 0.5 mg PO BID 11/17/19 Escitalopram Oxalate [Lexapro] 10 mg PO DAILY 08/27/20 Amiodarone HCl [Cordarone] 200 mg PO BID tablet 08/29/20 Amiodarone HCl [Cordarone] 200 mg PO DAILY #0 tablet 08/29/20 Amiodarone HCl [Cordarone] 200 mg PO TID #100 tablet 08/29/20 Apixaban [Eliquis] 2.5 mg PO BID #60 tablet 08/29/20 Furosemide [Lasix] 20 mg PO Q OTHER DAY #30 tab 08/29/20 Metoprolol Tartrate [Lopressor (beta alexandra)] 50 mg PO BID #60 tablet 08/29/20 Following Prescriptions Were Given to Patient: Amiodarone HCl [Cordarone] 200 mg PO TID #100 tablet Transmission Status: Pending to [employer] [facility] [facility] #30 Apixaban [Eliquis] 2.5 mg PO BID #60 tablet Transmission Status: Pending to [facility] #30 Metoprolol Tartrate [Lopressor (beta alexandra)] 50 mg PO BID #60 tablet Transmission Status: Pending to [facility] #30 Primary Care Physician: Amado Bruce MD [Primary Care Provider] - Please follow up with your Primary Care Physician in: In 1 to 2 weeks Please Follow Up With: Riaz Laureano MD When: In 4 weeks Medical Necessity - Tobacco Use Smoking Status: Former smoker Meaningful Use Info Meaningful Use Diagnoses (Choose all that apply): None applicable, CHF - CHF RAFFAELE/ARB ordered at discharge?: No Reason RAFFAELE/ARB not ordered?: Allergy Documented LVEF (%): 75 Inpatient E&M: 65768 Disch Hosp
--- NOTE | 2020-08-29 15:13 | CASEMGMT ---
Pt to be sent home on Eliquis at discharge and med e-scribed to [facility]. Call to [facility] and per tech, pt's co-pay is $25. Pt provided with Eliquis 30 day free trial card and states no need for any therapy at home. Pt has been on 2L nc and her home order is for 3L continuous. Pt states no further concerns/needs/questions. SStbalwinder LORENZANA CM
--- NOTE | 2020-08-29 19:03 | PCM.PN.CARD ---
Subjectve: The patient was evaluated earlier this day. She stated overall she had been feeling better. She had no new acute cardiovascular complaints. Objective: Vital Signs Temp Pulse Resp BP Pulse Ox 97.9 F 82 16 136/58 H 94 08/29/20 16:44 08/29/20 16:44 08/29/20 16:44 08/29/20 16:44 08/29/20 16:44 Oxygen Flow Rate (L/min) 2 Oxygen Delivery Method Nasal Cannula Weight: 110 lb 14.28 oz Body Mass Index (BMI) 19.6 Intake and Output for Last 24 Hours 08/27/20 08/28/20 08/29/20 23:59 23:59 23:59 Intake Total 636.92 / 653.62 1193.80 / 1293.80 340 / 340 Output Total 200 / 200 Balance 636.92 / 653.62 1193.80 / 1293.80 140 / 140 General: Awake, Alert, Oriented x 3, Cooperative HEENT: Atraumatic, Normocephalic, PERRL, EOMI, Sclera Non Icteric Neck: Supple, Good ROM Lungs: Diminished Alo Bases Cardiovascular: Irregular Rhythm, Normal S1, Normal S2 Abdomen: Bowel Sounds Present, Soft Extremities: Trace RLE Edema, Trace LLE Edema Neurological: No Focal Motor or Sensory Deficit Psych/Mental Status: Appropriate 08/29/20 05:10: Sodium 140, Potassium 4.1, Chloride 94 L, Carbon Dioxide > 45.0 H*, Anion Gap TNP, BUN 44 H, Creatinine 1.20 H, Est GFR (MDRD) Af Amer 55 L, Est GFR (MDRD) Non-Af 46 L, BUN/Creatinine Ratio 36.7 H, Glucose 148 H, Calcium 9.1, Magnesium 1.8 Rhythm: EKG: ECHO: Stress Test: Cardiac Cath: PCI: CT Surgery: Holter monitor: EPS: PPM: CXR: Chest CT Scan: Medical Necessity - Tobacco Use Smoking Status: Former smoker Assessment/Plan 1. Atrial flutter The patient is found to have atrial flutter. The etiology may be multifactorial. This may be a combination of her underlying age, cardiovascular condition, and pulmonary condition. The patient has been changed to oral medication. Her heart rate does appear to be better controlled. She will continue medical therapy with subsequent adjustment as needed. Her medical therapy does include anticoagulant therapy. Depending upon her course over time, if she does not return to sinus rhythm, then perhaps she can be considered for a future attempt at synchronized biphasic DC cardioversion if she appears able to undergo such especially from her underlying pulmonary disease process. 2. Valvular heart disease She does have underlying valvular heart disease as previously noted. Based upon her previous studies it was not felt she required further evaluation or care at that time leading to valvular intervention either percutaneous or surgical. Her valvular heart disease can be reassessed as needed with noninvasive studies such as echocardiogram. 3. Hyperlipidemia The patient will continue medical management as deemed appropriate. 4. Hypertension The patient blood pressure will need to be followed with adjustment of her medications as needed. 5. Diabetes mellitus The patient will continue evaluation care per internal medicine. 6. Chronic renal insufficiency This has to be taken into consideration with the patient's ongoing evaluation and care and adjustment of medications. 7. COPD The patient has a significant underlying COPD history with home oxygen therapy. This may be a major contributing factor to her atrial dysrhythmia. She will have to continue evaluation care by her other physicians for this. 8. Abnormal cardiac enzymes Of note, the patient does have indeterminate troponin I levels. This may be related to her atrial dysrhythmia with RVR superimposed upon her underlying cardiovascular condition as her pharmacologic stress nuclear imaging study performed last year was considered negative for any evidence of underlying CAD or myocardial ischemia. She will continue conservative medical therapy. This could change depending upon her future clinical course, etc. However if she would require further invasive evaluation and care in the future consideration would have to be given as to whether she is a candidate for such based upon a combination of not only her age but her chronic comorbidities and frail cachectic state. Comment: The patient's case was discussed and reviewed with Dr. Wall. This note was generated using a voice recognition system and there may be incorrect words, spelling or punctuation that were not noted when reviewing the office note prior to saving.
== END 2020-08-29 16:40 | disposition home or self-care (01) | DRG 308 ==
LOC: ED 11:19 → PCU 08-28 09:38
PROVIDERS: Admitting Provider Internal Medicine; Emergency Provider Emergency Medicine; PCP Internal Medicine; Visit Provider Internal Medicine
DX: I48.92 Unspecified atrial flutter (principal); E43 Unspecified severe protein-calorie malnutrition; I50.33 Acute on chronic diastolic (congestive) heart failure; I13.0 Hypertensive heart and chronic kidney disease with heart failure and stage 1 through stage 4 chronic kidney disease, or unspecified chronic kidney disease; J96.11 Chronic respiratory failure with hypoxia; Z68.1 Body mass index [BMI] 19.9 or less, adult; E87.3 Alkalosis; I50.82 Biventricular heart failure; E11.22 Type 2 diabetes mellitus with diabetic chronic kidney disease; N18.32 Chronic kidney disease, stage 3b; I27.20 Pulmonary hypertension, unspecified; T50.2X5A Adverse effect of carbonic-anhydrase inhibitors, benzothiadiazides and other diuretics, initial encounter; J43.9 Emphysema, unspecified; I35.0 Nonrheumatic aortic (valve) stenosis; E78.2 Mixed hyperlipidemia; Z99.81 Dependence on supplemental oxygen; Z79.84 Long term (current) use of oral hypoglycemic drugs; Z79.82 Long term (current) use of aspirin; Z79.899 Other long term (current) drug therapy; Z87.891 Personal history of nicotine dependence
CPT/HCPCS: 36415; 71045; 71275; 80048; 80053; 80061; 83735; 83880; 84443; 84484; 85025; 85610; 85730; 93005; 94762; 96365; 96366; 96367; 96375; 96376; 99218; 99251; 99284; Q9967; A4216; G0378; G0463; J1940

== ENCOUNTER 2020-08-30 16:49 | Inpatient (IN) | payer MEDICARE, OTHER, SELFPAY ==
[2020-08-27 16:28] VITALS: BMI 19.6
[2020-08-30] VITALS (15 sets, daily range): BP systolic 112–155; BP diastolic 44–64; PULSE 76–134; RESP 12–40; TEMP 36.1–36.6; O2SAT 45–100; BMI 19.6; BMI 18.9; BMI 19.0
--- NOTE | 2020-08-30 17:14 | EKG12_ITS ---
Test Reason : Blood Pressure : / mmHG Vent. Rate : 100 BPM Atrial Rate : 250 BPM P-R Int : 000 ms QRS Dur : 134 ms QT Int : 348 ms P-R-T Axes : 000 111 -81 degrees QTc Int : 448 ms Atrial flutter with variable A-V block Right bundle branch block Septal infarct , age undetermined T wave abnormality, consider inferolateral ischemia Abnormal ECG Confirmed by SAM COOPER, IVA ([id number]), photograph editor DARIAN RAMIREZ ([id number]) on 09/02/2020 9:50:13 AM Referred By: Confirmed By:BLANCA VARGAS MD
--- NOTE | 2020-08-30 17:19 | ED.DCSUM_ITS ---
History of Present Illness Chief Complaint: Weakness Informant: Family Onset: Today Narrative: Patient is an 80-year-old female that was just discharged from [facility] yesterday. She was brought home with her . She laid in bed last night after eating dinner. She is not gotten out of bed since. She is minimally responsive per the . Patient was admitted for atrial flutter with rapid ventricular response as well as is decompensated heart failure and right-sided pleural effusion. Patient been having weakness for the past 2 to 3 weeks. Patient was started on amiodarone and is on metoprolol. 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 She wears 2 to 3 L of oxygen at baseline. Patient is on Eliquis. Patient is normally interactive any noted x2-3. Patient does not provide any history. The is at the bedside but he is hard of hearing. Past Medical History - Allergies and Home Meds Allergies/Adverse Reactions: Allergies lisinopril Adverse Reaction (Severe, Verified 08/30/20 16:50) lightheaded, not feel well Primary Care Physician: Amado Bruce MD [Primary Care Provider] - Past Medical History: - - Atrial flutter, diastolic heart failure, CKD, right bundle branch block, COPD, type 2 diabetes mellitus, hypertension, hyperlipidemia Surgical History: noncontributory, appendectomy Lives: Spouse/ Significant Other Smoking Status: Former smoker Review of Systems ROS: Unable to Obtain - Patient is encephalopathic and unable to contribute to history Physical Exam Vital Signs/Narrative: Vital Signs Temp Pulse Resp BP Pulse Ox 08/30/20 17:04 132 H 25 H 132/59 H 94 08/30/20 16:57 97.3 F L 124 H 40 H 155/62 H 90 Inital Vital Signs reviewed: Yes General: Well developed Head: Normocephalic, Atraumatic Eyes: Perrl, EOMI ENT: Moist mucous membranes, No rhinorrhea Neck: Supple, Nontender. Negative for: No JVD Cardiovascular: Regular rhythm, No murmurs, Tachycardia Respiratory: Chest nontender, Diminished, - - Tachypnea, decreased breath sounds on the right side Abdomen: Soft, Nontender, Nondistended, Normal bowel sounds Extremities: Nontender, No edema Skin: Normal color, No rash Neurological: Confused, Inattentive, Lethargic, - - No focal neurologic deficits Psychological: Normal affect, Normal Mood Diagnostic/Tx/Re-eval Chest X-Ray - ED: 1 View, Read by ED Physician, Read by Radiologist, Chronic Changes, Right Effusion, Left Effusion Clinical Impression(s) from Imaging Studies Chest X-Ray 08/30/20 18:06 IMPRESSION: Hyperexpansion consistent with COPD with a continued moderate-sized right pleural effusion with consolidation and volume loss in the right lower lobe. Minimal left pleural effusion. Stable mild cardiomegaly. Electronically Signed: Luda Kerns MD at 18:33 EDT , Service support , Laboratory Data 08/30/20 08/30/20 08/30/20 17:00 17:10 17:10 WBC 12.6 H RBC 3.74 L Hgb 10.1 L Hct 37.2 MCV 99.5 H D MCH 27.0 MCHC 27.2 L RDW Std Deviation 48.0 H RDW Coeff of Lul 13.2 Plt Count 247 MPV 11.9 Immature Gran % (Auto) 0.700 Neut % (Auto) 86.4 H Lymph % (Auto) 6.[address] [place] % (Auto) 5.6 Eos % (Auto) 0.6 Baso % (Auto) 0.3 Absolute Neuts (auto) 10.9 H Absolute Lymphs (auto) 0.81 L Nucleated RBC % 0 PT 12.6 INR 1.0 APTT 29.5 Specimen Type Sample Site pH Bicarbonate Actual Total CO2 Base Excess O2 Saturation ABG pCO2 ABG pO2 Wade Test O2 Delivery Device Liter Flow Crit Call To/Read Back Sodium Potassium Chloride Carbon Dioxide Anion Gap BUN Creatinine Estim Creat Clear Calc Est GFR (MDRD) Af Amer Est GFR (MDRD) Non-Af BUN/Creatinine Ratio Glucose Lactic Acid Calcium Total Bilirubin AST ALT Alkaline Phosphatase Total Creatine Kinase Troponin I Total Protein Albumin Globulin Albumin/Globulin Ratio Urine Color Yellow Urine Clarity Sl. Cloudy Urine pH 5.0 Ur Specific [place] 1.020 Urine Protein 30 H Urine Glucose (UA) Normal Urine Ketones Negative Urine Occult Blood Negative Urine Nitrite Negative Urine Bilirubin Negative Urine Urobilinogen Normal Ur Leukocyte Esterase Negative Urine RBC 0 SEEN Urine WBC 0 SEEN Ur Squamous Epith Cells 0 SEEN Amorphous Sediment 1+ Urine Bacteria 0 SEEN Hyaline Casts 0-5 SEEN Urine Mucus 0 SEEN 08/30/20 08/30/20 08/30/20 17:10 17:39 17:40 WBC RBC Hgb Hct MCV MCH MCHC RDW Std Deviation RDW Coeff of Lul Plt Count MPV Immature Gran % (Auto) Neut % (Auto) Lymph % (Auto) [place] % (Auto) Eos % (Auto) Baso % (Auto) Absolute Neuts (auto) Absolute Lymphs (auto) Nucleated RBC % PT INR APTT Specimen Type ART Sample Site R Radial pH 7.20 L Bicarbonate Actual 52.3 H Total CO2 > 50 Base Excess 24 H O2 Saturation 98 ABG pCO2 133.7 H* ABG pO2 150 H Wade Test Positive O2 Delivery Device Cannula Liter Flow 2.0 Crit Call To/Read Back Yes Sodium 141 Potassium 4.2 Chloride 95 L Carbon Dioxide > 45.0 H* Anion Gap TNP BUN 56 H Creatinine 1.75 H Estim Creat Clear Calc 19.09 Est GFR (MDRD) Af Amer 36 L Est GFR (MDRD) Non-Af 30 L BUN/Creatinine Ratio 32.0 H Glucose 141 H Lactic Acid 0.5 Calcium 9.3 Total Bilirubin 0.20 AST 13 L ALT 17 Alkaline Phosphatase 91 Total Creatine Kinase 36 Troponin I 0.051 H Total Protein 7.3 Albumin 2.6 L Globulin 4.7 H Albumin/Globulin Ratio 0.6 L Urine Color Urine Clarity Urine pH Ur Specific [place] Urine Protein Urine Glucose (UA) Urine Ketones Urine Occult Blood Urine Nitrite Urine Bilirubin Urine Urobilinogen Ur Leukocyte Esterase Urine RBC Urine WBC Ur Squamous Epith Cells Amorphous Sediment Urine Bacteria Hyaline Casts Urine Mucus - Rhythm Strip Rhythm Strip: A-fib Rate: 135 Ectopy: None - EKG Initial EKG Interpretation: Atrial Flutter, - - Atrial flutter at a rate of 100 with variable block QRS 134 QTc 448 Right bundle branch block Nonspecific T wave changes - Medical Decision Making Patient evaluated for mental status change. Patient is tachypneic and tachycardic. She has decreased responsiveness. I suspect she has some type of metabolic process going on. Apparently patient has been like this since last night. Patient is found to be in atrial flutter with RVR. She does have a history of this. She was recently started on metoprolol but did not start taking it yet. On arrival patient is in and out of of atrial flutter with RVR with her heart rate fluctuate between 100 and 140. Her blood pressure stable she does not require emergent cardioversion. He obtained shows decompensated hypercapnic respiratory failure. Likely the hypercapnia is the cause of her mental status change. Patient is placed on BiPAP. I did have a discussion with her as the patient is not able to answer questions appropriately about her CODE STATUS. He confirms that patient would not like CPR and does not think that she would like to be intubated should her breathing get any worse. He is counseled that she is very sick and could worsen overnight. He does verbalize understanding of this. Patient is given 500 cc bolus of fluids a concern she also be over diuresed. She actually has improvement of her heart rate with this. I had initially ordered metoprolol 5 mg IV push however this was not given as patient's heart rate normalized with fluids alone. Patient does have an elevation of her creatinine compared to yesterday. Do not suspect an acute infectious process.Her leukocytosis is mildly elevated 12.6 however suspect is more reactive. Lactate is normal. Troponin is elevated 0.051 but this appears to be her baseline. While patient is requiring BiPAP as she is a DNR CCA with no intubation she will be placed in the PCU for gentle hydration and management of her respiratory failure. Patient is in guarded condition but stabilized at time of disposition. - Critical Care Time Critical care time (excluding procedures): 30-74 minutes - 40 minutes?interpretation of laboratory studies, frequent reevaluations, management of heart rate and unsteady vitals, discussion with family about CODE STATUS and arranging admission. ED Disposition - Plan for ED Patient: Disposition: Acute Care [facility] Diagnosis: Atrial flutter with rapid ventricular response, Pleural effusion, right, Acute kidney injury, Acute and chronic respiratory failure with hypercapnia Referrals: Amado Bruce MD [Primary Care Provider] -
[2020-08-30 17:26] LABS: Bacteria 0 SEEN /hpf (None Seen); Mucous, Urine 0 SEEN /hpf (<or=2+); Red Blood Cells-Urine 0 SEEN /hpf (0-5); Squamous Epithelial Cells - UA 0 SEEN /hpf (5-10); White Blood Cells 0 SEEN /hpf (0-5)
[2020-08-30 17:27] LABS: Absolute Lymphocyte Count 0.81 X10^3/uL (0.83-4.51); Absolute Neutrophil Count 10.9 X10^3/uL (2.0-7.7); Basophil# 0.04 X10^3/uL; Basophil% 0.3 % (0-1); Eosinophil# 0.07 X10^3/uL; Eosinophils% 0.6 % (0-5); Hematocrit 37.2 % (37-47); Hemoglobin 10.1 g/dL (12.0-15.0); Lymphocyte # 0.81 X10^3/ul (0.83-4.51); Lymphocyte % 6.4 % (19-41); Mean Corp Hgb Conc 27.2 g/dL (32-36); Mean Corpuscular Volume 99.5 fL (81-99); Mean Platelet Vol. 11.9 fl (6.2-12.0); Monocyte# 0.71 X10^3/uL; Monocyte% 5.6 % (0-10); NRBC Flagged by Analyzer 0 % (0-5); Neutrophil # 10.85 X10^3/uL (2.7-7.7); Neutrophil % 86.4 % (47-70); Platelet Count 247 K/mm3 (150-450); RBC Distribution Width CV 13.2 % (11.6-14.6); Red Blood Count 3.74 M/mm3 (4.2-5.4); White Blood Count 12.6 K/mm3 (4.4-11.0)
[2020-08-30 17:39] LABS: Color, Urine Yellow (Yellow); Glucose, Dipstick Normal (Normal); Ketone-Dipstick Negative (Negative); Leukocyte Esterase-Dipstick Negative /ul (Negative); Nitrite-Dipstick Negative (Negative); Occult Blood-Urine Negative /ul (Negative); Protein-Dipstick 30 mg/dl (Negative); Urine Bilirubin Dipstick Negative (Negative); Urine Clarity Sl. Cloudy (Clear); Urine Urobilinogen Normal (Normal)
[2020-08-30 17:39] LABS: Prothrombin Time (Protime)PT. 12.6 SECONDS (11.7-14.9)
[2020-08-30 17:40] LABS: Partial Thromboplast Time 29.5 Seconds (24.1-36.2)
[2020-08-30 17:56] LABS: Amorphous Sediment 1+; Hyaline Cast 0-5 SEEN /lpf (0-5)
--- NOTE | 2020-08-30 18:06 | RAD_ITS ---
STUDY: X-RAY CHEST REASON FOR EXAM: Female, 80 years old. sob TECHNIQUE: 1 view COMPARISON: Prior chest radiograph of 08/27/[address] exam of 08/27/2020 FINDINGS: Continued hyperexpansion and emphysematous changes of the upper lobes. Persistent moderate size right pleural effusion with volume loss in the right lower lobe. Minimal left pleural effusion. Stable cardiac size. Normal mediastinum and conchita. Normal visualized pulmonary arteries. There is atherosclerotic calcification of the aortic arch with tortuosity. Degenerative changes of the thoracic spine with kyphosis and demineralized osseous structures. Normal visualized ribs, clavicles, and shoulders. There is no demonstrated abnormality of the visualized soft tissue structures of the upper abdomen. RAD/Chest 1 View (Portable) IMPRESSION: Hyperexpansion consistent with COPD with a continued moderate-sized right pleural effusion with consolidation and volume loss in the right lower lobe. Minimal left pleural effusion. Stable mild cardiomegaly. Electronically Signed: Luda Kerns MD at 18:33 EDT , Service support ,
--- NOTE | 2020-08-30 18:07 | CPS ---
critical ABG results given to Dr. Nam.
[2020-08-30 18:15] LABS: ALB/GLOB Ratio 0.6 RATIO (0.9-2.4); AST(SGOT) 13 U/L (15-37); Alanine Aminotransfer ALT/SGPT 17 U/L (13-56); Albumin, Serum 2.6 g/dL (3.2-5.0); Alkaline Phosphatase 91 U/L (45-117); BUN 56 mg/dL (7-18); CPK Total, Creatine Kinase 36 U/L (26-192); Calcium,Total 9.3 mg/dL (8.5-10.1); Carbon Dioxide > 45.0 mmol/L (21.0-32.0); Chloride 95 mmol/L (98-107); Creatinine, Serum 1.75 mg/dL (0.55-1.02); EST Glomerular Filtration Rate 30 mL/min (>60); Est Glom Filt Rate - Afr Amer 36 mL/min (>60); Estimated Creatinine Clearance 19.09 ml/min; Globulin 4.7 g/dL (2.2-4.2); Glucose 141 mg/dL (74-106); Potassium 4.2 mmol/L (3.5-5.1); Protein, Total 7.3 g/dL (6.4-8.2); Sodium Level 141 mmol/L (136-145)
[2020-08-30 18:16] LABS: Allen Test Positive; Base Excess 24 mmol/L (-2 to +2); Bicarbonate 52.3 mmol/L (22-26); Blood Gas Specimen Type ART; O2 Delivery Device Cannula; PO2 150 mmHG (75-100); SITE R Radial; SO2 98 % (95-99); Total Carbon Dioxide > 50 mmol/L; pCO2 133.7 mmHg (35-45)
[2020-08-30 18:24] LABS: Lactic Acid 0.5 mmol/L (0.4-1.9)
--- NOTE | 2020-08-30 18:44 | HP.PCM_ITS ---
History of Present Illness Date of Admission: 08/30/20 Chief Complaint: weakness, altered mental status The patient is a 80 year old F with a PMH as outlined. She was admitted via the ED on 08/30/2020 with a complaint of unresponsiveness. She was just discharged yesterday from [facility] after being managed for new onset atrial flutter as well as acute on chronic diastolic heart failure and mild right pleural effusion. She went home and says she ate dinner last night and went to bed. However she lay in bed for a long time and was minimally responsive when tried waking her up, so decided to call the EMS. On arrival in the ED her temperature was 97 Fahrenheit with blood pressure 125/64, pulse rate of 91 and respiratory rate of 21. Labs done showed bicarb of more than 45 and creatinine of 1.75 with sodium of 141. Initial troponin was 0.051. CBC showed hemoglobin of 10.1 with WBC of 12.6 and platelets of 247. X-ray showed hyperexpansion consistent with COPD with a continuous moderate right-sided pleural effusion with consolidation and volume loss in the right lower lobe and mild left pleural effusion with stable mild cardiomegaly. ABG done showed pH of 7.2 with PCO2 of 133.7 and PO2 of 150 and this was done while she was on oxygen. She is therefore being admitted to be managed for acute metabolic encephalopathy due to acute on chronic hypercapnic respiratory failure. Past Medical History Past Medical History (Chronic Problems): Chronic Problems (Last Reviewed 11/17/19 @ 14:38 by Carmela Ambrocio) Chronic kidney disease (CKD) (Chronic) Mitral valve disorder (Chronic) Acute and chronic respiratory failure with hypercapnia (Chronic) RBBB (right bundle branch block) (Chronic) Nonrheumatic aortic (valve) stenosis (Chronic) Mild COPD (chronic obstructive pulmonary disease) (Chronic) CKD (chronic kidney disease) stage 3, GFR 30-59 ml/min (Chronic) Type 2 diabetes mellitus (Chronic) Essential hypertension (Chronic) Mixed hyperlipidemia (Chronic) Medical History: Medical History (Last Reviewed 11/17/19 @ 14:38 by Carmela Ambrocio) RBBB (right bundle branch block) (Chronic) I45.10 Nonrheumatic aortic (valve) stenosis (Chronic) I35.0 Mild COPD (chronic obstructive pulmonary disease) (Chronic) J44.9 CKD (chronic kidney disease) stage 3, GFR 30-59 ml/min (Chronic) N18.3 Type 2 diabetes mellitus (Chronic) E11.9 Essential hypertension (Chronic) I10 Mixed hyperlipidemia (Chronic) E78.2 Inguinal hernia K40.90 Tubular adenoma of colon D12.6 Allergies lisinopril Adverse Reaction (Severe, Verified 08/30/20 16:50) lightheaded, not feel well Home Medications: Ambulatory Orders Medication Instructions Recorded albuterol sulfate 90 mcg/actuation 2 puff INHALATION Q6H PRN 06/27/19 aerosol inhaler budesonide-formoterol HFA 80 2 puff INHALATION BID 06/27/19 mcg-4.5 mcg/actuation aerosol inhaler clobetasol 0.05 % topical ointment 1 applic TOPICAL DAILY PRN 06/27/19 hydrochlorothiazide 25 mg tablet 25 mg PO DAILY 06/27/19 paroxetine HCl 30 mg tablet 30 mg PO DAILY 06/27/19 pravastatin 20 mg tablet 20 mg PO DAILY 06/27/19 cholecalciferol (vitamin D3) 50 2,000 unit PO DAILY 08/24/19 mcg (2,000 unit) capsule lorazepam 0.5 mg tablet 0.5 mg PO BID 11/17/19 Escitalopram Oxalate [Lexapro] 10 mg PO DAILY 08/27/20 Apixaban [Eliquis] 2.5 mg PO BID #60 tablet 08/29/20 Metoprolol Tartrate [Lopressor 50 mg PO BID #60 tablet 08/29/20 (beta alexandra)] Amiodarone HCl [Cordarone] 400 mg PO BID 08/30/20 Amiodarone HCl [Cordarone] 400 mg PO DAILY 08/30/20 Amiodarone HCl [Cordarone] 400 mg PO TID 08/30/20 Furosemide [Lasix] 20 mg PO QODAY 08/30/20 Surgical History: Surgical History (Last Reviewed 11/17/19 @ 14:38 by Carmela Ambrocio) History of appendectomy Z90.49 History of bilateral cataract extraction Z98.41, Z98.42 Surgical History: noncontributory, appendectomy Lives: Spouse/ Significant Other Smoking Status: Former smoker Review of Systems Unable to obtain accurate/complete ROS d/t: patient is very lethargic, and on BIPAP VTE Information - Inpt Only VTE Present on Admission: No VTE Pharm Prophylaxis ordered?: Yes Patient Problems: Active and Suspected Problems (Last Reviewed 11/17/19 @ 14:38 by Carmela Ambrocio) Atrial flutter with rapid ventricular response (Acute) Pleural effusion, right (Acute) Acute kidney injury (Acute) - Physical Exam Vitals/I&O's: Vital Signs Temp Pulse Resp BP Pulse Ox 97.0 F L 91 21 H 125/64 H 93 08/30/20 18:33 08/30/20 18:33 08/30/20 18:33 08/30/20 18:33 08/30/20 18:33 Oxygen Flow Rate (L/min) 4 Oxygen Delivery Method Bi-pap Weight: 107 lb 9.369 oz Body Mass Index (BMI) 19.6 Intake and Output for Last 24 Hours 08/28/20 08/29/20 08/30/20 23:59 23:59 23:59 Intake Total 500 / 500 Balance 500 / 500 General: Alert, Lethargic, - - very weak and frail HEENT: Atraumatic, PERRLA, EOMI, Normocephalic Oral: Dry Mucosa Neck: Supple, No JVD, Negative Carotid Bruits Lungs: - - markedly diminished breath sounds bibasally, no wheezes or crackles. on BIPAP Cardiovascular: Irregular Rate - afib, rate controlled Abdomen: Bowel Sounds Present, Soft, Non Tender, Non-Distended, No Hepato- splenomegaly Extremities: No clubbing, No cyanosis, No edema, Capillary Refill Less than 3 Seconds Skin: No rashes, No breakdown Musculoskeletal: No Tenderness to Palpation of Joints or Extremities Lymphatic: No Cervical, Supraclavicular, or Inguinal Adenopathy Neurological: - - very weak and lethargic. moving all extremities spontaneously. Responds to voice and follows commands Psych/Mental Status: Flat Affect Laboratory Results 08/30/20 17:00: Urine Color Yellow, Urine Clarity Sl. Cloudy, Urine pH 5.0, Ur Specific [place] 1.020, Urine Protein 30 H, Urine Glucose (UA) Normal, Urine Ketones Negative, Urine Occult Blood Negative, Urine Nitrite Negative, Urine Bilirubin Negative, Urine Urobilinogen Normal, Ur Leukocyte Esterase Negative, Urine RBC 0 SEEN, Urine WBC 0 SEEN, Ur Squamous Epith Cells 0 SEEN, Amorphous Sediment 1+, Urine Bacteria 0 SEEN, Hyaline Casts 0-5 SEEN, Urine Mucus 0 SEEN 08/30/20 17:10: WBC 12.6 H, RBC 3.74 L, Hgb 10.1 L, Hct 37.2, MCV 99.5 H D, MCH 27.0, MCHC 27.2 L, RDW Std Deviation 48.0 H, RDW Coeff of Lul 13.2, Plt Count 247, MPV 11.9, Immature Gran % (Auto) 0.700, Neut % (Auto) 86.4 H, Lymph % (Auto) 6.4 L, [place] % (Auto) 5.6, Eos % (Auto) 0.6, Baso % (Auto) 0.3, Absolute Neuts (auto) 10.9 H, Absolute Lymphs (auto) 0.81 L, Nucleated RBC % 0 08/30/20 17:10: PT 12.6, INR 1.0, APTT 29.5 08/30/20 17:10: Sodium 141, Potassium 4.2, Chloride 95 L, Carbon Dioxide > 45.0 H*, Anion Gap TNP, BUN 56 H, Creatinine 1.75 H, Estim Creat Clear Calc 19.09, Est GFR (MDRD) Af Amer 36 L, Est GFR (MDRD) Non-Af 30 L, BUN/Creatinine Ratio 32.0 H, Glucose 141 H, Calcium 9.3, Total Bilirubin 0.20, AST 13 L, ALT 17, Alkaline Phosphatase 91, Total Creatine Kinase 36, Troponin I 0.051 H, Total Protein 7.3, Albumin 2.6 L, Globulin 4.7 H, Albumin/Globulin Ratio 0.6 L 08/30/20 17:39: Specimen Type ART, Sample Site R Radial, pH 7.20 L, Bicarbonate Actual 52.3 H, Total CO2 > 50, Base Excess 24 H, O2 Saturation 98, ABG pCO2 133.7 H*, ABG pO2 150 H, Wade Test Positive, O2 Delivery Device Cannula, Liter Flow 2.0, Crit Call To/Read Back Yes 08/30/20 17:40: Lactic Acid 0.5 Diagnostic Data Chest X-Ray 08/30/20 18:06 IMPRESSION: Hyperexpansion consistent with COPD with a continued moderate-sized right pleural effusion with consolidation and volume loss in the right lower lobe. Minimal left pleural effusion. Stable mild cardiomegaly. Electronically Signed: Luda Kerns MD at 18:33 EDT , Service support , Assessment/Plan All Active Problems (Last Reviewed 11/17/19 @ 14:38 by Carmela Ambrocio) Atrial flutter with rapid ventricular response (Acute) Right heart failure (Acute) Pleural effusion, right (Acute) Abnormal cardiac enzyme level (Acute) Acute kidney injury (Acute) 80 y/o admitted with a complaint of altered mental status. #Acute metabolic encephalopathy due to acute hypercapnic respiratory failure * Was found minimally responsive by her in bed. Was just discharged from the hospital yesterday. * ABG showed pCO2 of 133, with no baseline to compare. pH was 7.2. bic arb was >45 * Placed on BiPAP. Will monitor ABG. * Admit to PCU as she is DNR CC a no intubation * Titrate BiPAP to maintain saturation above 90%. Hold all sedative medication. * PT OT consult. Fall precautions. * Breathing treatments with bronchodilators. * consult pulmonology * #Acute hypercapnic respiratory failure: As above #A. fib: On amiodarone and metoprolol. Also on Eliquis. #Chronic heart failure with preserved ejection fraction: * Was just discharged from the hospital yesterday. Chest x-ray today still shows moderate sized right pleural effusion. On Lasix as well as hydrochlorothiazide. Will hold these as I suspect that patient may have been over diuresed. * 2D echo showed EF of 75%. #Hypertension: On metoprolol and hydrochlorothiazide #Hyperlipidemia: On statin #CKD stage IIIb: Denies 1.75 with a GFR of 30. Will monitor. DVT prophylaxis: Not indicated as patient is on Eliquis for A. fib #CODE STATUS: DNR CCA no intubation * Patient's counseled extensively about different types of CODE STATUS including full code, DNR CCA and DNR CCA. Patient's elects for her to be DNRCCA no intubation, as he says she wouldnt want to be intubated or have CPR. * . Total [id number] time 17 minutes. Inpatient E&M: 41018 Init Hosp L3 Procedures: 12488 Advncd Care Plan 30 Min
--- NOTE | 2020-08-30 19:20 | ED.RN ---
bipap removed and venturi mask on patient via respiratory therapy. He states he will take the bipap to the floor. patient going to ct first.
--- NOTE | 2020-08-30 19:28 | CT_ITS ---
STUDY: CT BRAIN WITHOUT CONTRAST REASON FOR EXAM: Female, 80 years old. ams RADIATION DOSAGE (If Supplied By Facility): CTDIvol = ( 44.99 ) mGy, DLP = ( 745.49 ) mGycm TECHNIQUE: Transaxial CT imaging of the brain was performed without administration of intravenous contrast material. Individualized dose optimization techniques were used for this CT. COMPARISON: No relevant priors. FINDINGS: Normal soft tissue structures. Normal calvarium. Normal size ventricles and extra-axial spaces for the patient''s age. There are areas of decreased attenuation within the white matter tracts of the supratentorial brain, consistent with microvascular disease changes. There are small punctate calcifications of the basal ganglia which are seen in the aging brain as a normal variant. Normal brainstem. Normal cerebellum. There is no intracranial hemorrhage. There are no findings of an acute ischemic infarction. Normal visualized paranasal sinuses. CT/Brain/Head without Contrast IMPRESSION: No acute intracranial findings. Negative for hemorrhage, hematoma or extra-axial fluid collection. Negative for demarcation of the new nonhemorrhagic infarct zone. Mild involutional changes for age. Electronically Signed: Luda Kerns MD at 21:29 EDT , Service support ,
[2020-08-30] MEDS: 0.9% Saline Lock 10 ML Syringe IV (20:05)
[2020-08-30] MEDS: Budesonide Respules 0.5 MG/2 ML AMPUL.NEB. INHALATION (20:54)
[2020-08-30] MEDS: Albuterol 2.5 MG/3 ML VIAL.NEB. INHALATION (20:54)
[2020-08-30 21:21] LABS: Allen Test Positive; Base Excess 14 mmol/L (-2 to +2); Bicarbonate 40.6 mmol/L (22-26); Blood Gas Specimen Type ART; FI02 30; Mode BiLevel; O2 Delivery Device BiPAP; PEEP 6; PO2 31 mmHG (75-100); PS 6; RR 12; SITE R Radial; SO2 48 % (95-99); Total Carbon Dioxide 43 mmol/L; pCO2 84.3 mmHg (35-45); pH 7.29 (7.35-7.45)
[2020-08-30] MEDS: 0.9% Normal Saline 1,000 ML 75 ML IV (21:37)
--- NOTE | 2020-08-30 21:57 | PCM.HOSP.N ---
Hospitalist Note Discussed patient presentation and recent ABG with Dr. Irby, repeat requested as 2nd with notably lowered pO2 with oxygenation 90s on BIPAP. Repeat similarly with low pO2 and obtained brachially per discussion with RT. Patient oxygenation 90s but again lower pO2, pCO2 90. Will obtain CXR stat repeat although patient breathing very shallowly thus could be primary component. Will increase BIPAP settings which was discussed with RT. Confirmed patient is a DNR-CCA, no intubation status. Will change aerosols to start now to assist.
[2020-08-30 22:05] LABS: Allen Test Positive; Base Excess 19 mmol/L (-2 to +2); Bicarbonate 45.1 mmol/L (22-26); Blood Gas Specimen Type ART; FI02 30; Mode BiLevel; O2 Delivery Device BiPAP; PEEP 6; PO2 44 mmHG (75-100); PS 10; SITE R Brach; SO2 70 % (95-99); Total Carbon Dioxide 48 mmol/L; pCO2 92.9 mmHg (35-45); pH 7.29 (7.35-7.45)
--- NOTE | 2020-08-30 22:19 | RAD_ITS ---
STUDY: X-RAY CHEST REASON FOR EXAM: Female, 80 years old. Hypoxia TECHNIQUE: 1 view 10:24 PM COMPARISON: Prior chest radiograph of 08/30/2020 FINDINGS: No substantial changes from prior exam. Generalized hyperexpansion Continued right pleural effusion and volume loss/consolidation in the right lower lobe. Minimal left pleural effusion. Stable cardiac size. Normal mediastinum and conchita. Normal visualized pulmonary arteries. There is atherosclerotic calcification of the aortic arch with tortuosity. Normal visualized ribs, clavicles, and shoulders. There is no demonstrated abnormality of the visualized soft tissue structures of the upper abdomen. RAD/Chest 1 View (Portable) IMPRESSION: No substantial changes from prior exam. Generalized hyperexpansion. Persistent right pleural effusion and right lower lobe volume loss and consolidation. Minimal left pleural effusion. Stable cardiac size. Electronically Signed: Luda Kerns MD at 23:39 EDT , Service support ,
--- NOTE | 2020-08-30 23:54 | CPS ---
post abg. dr. drew notified of results. dr. drew gave order to change bipap settings to ipap 20 epap 10.
[2020-08-31] VITALS (25 sets, daily range): BP systolic 113–151; BP diastolic 40–81; PULSE 61–135; RESP 12–26; TEMP 36.2–37.2; O2SAT 93–100; BMI 18.9
[2020-08-31] MEDS: Metoprolol Tartrate 5 MG/5 ML Vial IV ×2 (05:47)
[2020-08-31] MEDS: 0.9% Saline Lock 10 ML Syringe IV ×2 (05:50→20:56)
[2020-08-31] MEDS: Budesonide Respules 0.5 MG/2 ML AMPUL.NEB. INHALATION ×2 (06:46→18:45)
[2020-08-31] MEDS: Albuterol 2.5 MG/3 ML VIAL.NEB. INHALATION ×3 (06:46→18:45)
[2020-08-31 07:26] LABS: Absolute Lymphocyte Count 0.44 X10^3/uL (0.83-4.51); Absolute Neutrophil Count 6.3 X10^3/uL (2.0-7.7); Basophil# 0.03 X10^3/uL; Basophil% 0.4 % (0-1); Eosinophil# 0.02 X10^3/uL; Eosinophils% 0.3 % (0-5); Hematocrit 32.9 % (37-47); Hemoglobin 8.9 g/dL (12.0-15.0); Lymphocyte # 0.44 X10^3/ul (0.83-4.51); Mean Corp Hgb Conc 27.1 g/dL (32-36); Mean Corpuscular Volume 99.7 fL (81-99); Mean Platelet Vol. 12.1 fl (6.2-12.0); Monocyte# 0.49 X10^3/uL; Monocyte% 6.7 % (0-10); NRBC Flagged by Analyzer 0 % (0-5); Neutrophil % 86.1 % (47-70); POSITIVE DIFFERENTIAL YES; Platelet Count 203 K/mm3 (150-450); RBC Distribution Width CV 13.3 % (11.6-14.6); RBC Distribution Width SD 48.6 fl (35.1-43.9); White Blood Count 7.3 K/mm3 (4.4-11.0)
[2020-08-31 07:36] LABS: Differential Indicated SCAN CRITERIA MET
[2020-08-31 07:50] LABS: Anion Gap 1 (5-15); BUN 59 mg/dL (7-18); BUN/Creat Ratio 38.1 RATIO (10-20); Calcium,Total 8.9 mg/dL (8.5-10.1); Chloride 98 mmol/L (98-107); Creatinine, Serum 1.55 mg/dL (0.55-1.02); EST Glomerular Filtration Rate 34 mL/min (>60); Est Glom Filt Rate - Afr Amer 41 mL/min (>60); Estimated Creatinine Clearance 20.76 ml/min; Glucose 124 mg/dL (74-106); Potassium 4.3 mmol/L (3.5-5.1); Sodium Level 141 mmol/L (136-145)
[2020-08-31 08:15] LABS: Platelet Estimate ADEQUATE (ADEQ)
[2020-08-31 08:16] LABS: Hypochromasia 2+; Stomatocyte 1+
--- NOTE | 2020-08-31 08:28 | PCM.CONS.PUL ---
Reason for Consult Date of Consultation: 08/31/20 Reason for Consultation: Acute on chronic combined respiratory failure History of Present Illness: The patient is an 80-year-old female, with a history as outlined below, who presented to the emergency department on August 30 with altered mentation and weakness. The patient had just been discharged from the hospital on August 29 after having been admitted for 48 hours with atrial flutter with rapid ventricular response. The patient does have a history of valvular heart disease. She is currently followed by Dr. Laureano in the cardiology clinic. The patient's medical history is somewhat limited, as she is a rather poor historian and able to provide little detail/insight into her history. She does report having been diagnosed with COPD previously but states that she only utilizes inhalers periodically at home. She does report that she chronically utilizes supplemental oxygen, but cannot tell me how many liters per minute. 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 She is also not sure if she utilizes any form of nocturnal CPAP/BiPAP therapy. She does have a prior extensive smoking history. On presentation to the emergency department, the patient was noted to be afebrile but was tachycardic and tachypneic. Laboratory evaluation revealed a normal white blood cell count. Coagulation profile was within normal limits. Chemistry profile revealed a chronically elevated bicarbonate to greater than 45. Creatinine was increased to 1.75. Lactate was within normal limits. Troponin was mildly increased to 0.051. Arterial blood gas obtained on 2 L/min revealed a pH of 7.2 with a corresponding PCO2 of 133 and PO2 of 150. Chest x-ray revealed hyperinflated lung gordon with flattening of the diaphragms, emphysematous changes and small right-sided pleural effusion. Head CT was unremarkable. EKG revealed atrial flutter with a rate of 100 bpm. CODE STATUS was verified to be DNR CCA without intubation. The patient received gentle IV fluid hydration and aerosol treatments. She was subsequently admitted to the progressive care unit for further management. Past Medical History Past Medical History (Chronic Problems): Chronic Problems (Last Reviewed 11/17/19 @ 14:38 by Carmela Ambrocio) Chronic kidney disease (CKD) (Chronic) Mitral valve disorder (Chronic) Acute and chronic respiratory failure with hypercapnia (Chronic) RBBB (right bundle branch block) (Chronic) Nonrheumatic aortic (valve) stenosis (Chronic) Mild COPD (chronic obstructive pulmonary disease) (Chronic) CKD (chronic kidney disease) stage 3, GFR 30-59 ml/min (Chronic) Type 2 diabetes mellitus (Chronic) Essential hypertension (Chronic) Mixed hyperlipidemia (Chronic) Medical History: Medical History (Last Reviewed 11/17/19 @ 14:38 by Carmela Ambrocio) RBBB (right bundle branch block) (Chronic) I45.10 Nonrheumatic aortic (valve) stenosis (Chronic) I35.0 Mild COPD (chronic obstructive pulmonary disease) (Chronic) J44.9 CKD (chronic kidney disease) stage 3, GFR 30-59 ml/min (Chronic) N18.3 Type 2 diabetes mellitus (Chronic) E11.9 Essential hypertension (Chronic) I10 Mixed hyperlipidemia (Chronic) E78.2 Inguinal hernia K40.90 Tubular adenoma of colon D12.6 Allergies lisinopril Adverse Reaction (Severe, Verified 08/30/20 16:50) lightheaded, not feel well Home Medications: Ambulatory Orders Medication Instructions Recorded albuterol sulfate 90 mcg/actuation 2 puff INHALATION Q6H PRN 06/27/19 aerosol inhaler budesonide-formoterol HFA 80 2 puff INHALATION BID 06/27/19 mcg-4.5 mcg/actuation aerosol inhaler clobetasol 0.05 % topical ointment 1 applic TOPICAL DAILY PRN 06/27/19 hydrochlorothiazide 25 mg tablet 25 mg PO DAILY 06/27/19 paroxetine HCl 30 mg tablet 30 mg PO DAILY 06/27/19 pravastatin 20 mg tablet 20 mg PO DAILY 06/27/19 cholecalciferol (vitamin D3) 50 2,000 unit PO DAILY 08/24/19 mcg (2,000 unit) capsule lorazepam 0.5 mg tablet 0.5 mg PO BID 11/17/19 Escitalopram Oxalate [Lexapro] 10 mg PO DAILY 08/27/20 Apixaban [Eliquis] 2.5 mg PO BID #60 tablet 08/29/20 Metoprolol Tartrate [Lopressor 50 mg PO BID #60 tablet 08/29/20 (beta alexandra)] Amiodarone HCl [Cordarone] 400 mg PO BID 08/30/20 Amiodarone HCl [Cordarone] 400 mg PO DAILY 08/30/20 Amiodarone HCl [Cordarone] 400 mg PO TID 08/30/20 Furosemide [Lasix] 20 mg PO QODAY 08/30/20 Surgical History: Surgical History (Last Reviewed 11/17/19 @ 14:38 by Carmela Ambrocio) History of appendectomy Z90.49 History of bilateral cataract extraction Z98.41, Z98.42 Surgical History: noncontributory, appendectomy Lives: Spouse/ Significant Other Smoking Status: Former smoker Review of Systems Constitutional: Reports: Weakness, Fatigue. Denies: Chills, Fever Eyes: Denies: Blurred vision, Double vision HEENT: Denies: Head Aches, Sinus Congestion, Sinus Drainage Cardiovascular: Denies: Chest Pain, Palpitations Respiratory: Reports: Shortness of Breath Gastrointestinal: Denies: Abdominal Pain, Nausea, Vomiting Genitourinary: Denies: Dysuria Musculoskeletal: Denies: Joint Pain, Joint Tenderness Skin: Denies: Rash, Wounds Neurological: Denies: Numbness, Tingling, Focal weakness Psychiatric: Reports: Anxiety, Depression Hematologic/ Lymphatic: Reports: Anemia Patient Problems: Active and Suspected Problems (Last Reviewed 11/17/19 @ 14:38 by Carmela Ambrocio) Atrial flutter with rapid ventricular response (Acute) Pleural effusion, right (Acute) Acute kidney injury (Acute) Objective: The patient's most recent lab work, culture data and imaging studies have all been personally reviewed. Surface echocardiogram revealed normal LV size with mild concentric LVH. Ejection fraction was noted to be 75% with evidence of diastolic dysfunction. Right ventricular systolic pressure was estimated to be 58 mmHg. Moderate aortic valve stenosis was noted. - Physical Exam Vitals/I&O's: Vital Signs Temp Pulse Resp BP Pulse Ox 98.9 F 97 24 H 126/40 H 100 08/31/20 08:00 08/31/20 08:00 08/31/20 08:00 08/31/20 08:00 08/31/20 08:00 Oxygen Flow Rate (L/min) 6 Oxygen Delivery Method Nasal Cannula Weight: 103 lb 9.876 oz Body Mass Index (BMI) 18.9 Intake and Output for Last 24 Hours 08/29/20 08/30/20 08/31/20 23:59 23:59 23:59 Intake Total 500 / 500 Balance 500 / 500 General: Alert, Cooperative, Confused, - - Frail and cachectic in appearance HEENT: Atraumatic, Normocephalic Oral: Moist Mucosa Neck: Supple, No Nodes, Trachea Midline Lungs: Diminished, Rales Cardiovascular: Normal S1, Normal S2, Irregular Rate, Murmur Abdomen: Bowel Sounds Present, Soft, Non Tender Extremities: No clubbing, No cyanosis, No edema Skin: No breakdown Musculoskeletal: Cachexia, Muscle Wasting Lymphatic: No Cervical, Supraclavicular, or Inguinal Adenopathy Neurological: Neuro grossly intact Psych/Mental Status: Flat Affect Labs (Last 48 Hours) 08/30/20 08/30/20 08/30/20 17:00 17:10 17:10 WBC 12.6 H RBC 3.74 L Hgb 10.1 L Hct 37.2 MCV 99.5 H D MCH 27.0 MCHC 27.2 L RDW Std Deviation 48.0 H RDW Coeff of Lul 13.2 Plt Count 247 MPV 11.9 Immature Gran % (Auto) 0.700 Neut % (Auto) 86.4 H Lymph % (Auto) 6.4 L [place] % (Auto) 5.6 Eos % (Auto) 0.6 Baso % (Auto) 0.3 Absolute Neuts (auto) 10.9 H Absolute Lymphs (auto) 0.81 L Nucleated RBC % 0 Platelet Estimate Hypochromasia Stomatocytes PT 12.6 INR 1.0 APTT 29.5 Specimen Type Sample Site pH Bicarbonate Actual Total CO2 Base Excess O2 Saturation O2 % ABG pCO2 ABG pO2 Wade Test Respiration Rate O2 Delivery Device Liter Flow Vent Mode POC PEEP POC Pressure Suppt Crit Call To/Read Back Clinical Comments Sodium Potassium Chloride Carbon Dioxide Anion Gap BUN Creatinine Estim Creat Clear Calc Est GFR (MDRD) Af Amer Est GFR (MDRD) Non-Af BUN/Creatinine Ratio Glucose Lactic Acid Calcium Total Bilirubin AST ALT Alkaline Phosphatase Total Creatine Kinase Troponin I Total Protein Albumin Globulin Albumin/Globulin Ratio Urine Color Yellow Urine Clarity Sl. Cloudy Urine pH 5.0 Ur Specific [place] 1.020 Urine Protein 30 H Urine Glucose (UA) Normal Urine Ketones Negative Urine Occult Blood Negative Urine Nitrite Negative Urine Bilirubin Negative Urine Urobilinogen Normal Ur Leukocyte Esterase Negative Urine RBC 0 SEEN Urine WBC 0 SEEN Ur Squamous Epith Cells 0 SEEN Amorphous Sediment 1+ Urine Bacteria 0 SEEN Hyaline Casts 0-5 SEEN Urine Mucus 0 SEEN 08/30/20 08/30/20 08/30/20 17:10 17:39 17:40 WBC RBC Hgb Hct MCV MCH MCHC RDW Std Deviation RDW Coeff of Lul Plt Count MPV Immature Gran % (Auto) Neut % (Auto) Lymph % (Auto) [place] % (Auto) Eos % (Auto) Baso % (Auto) Absolute Neuts (auto) Absolute Lymphs (auto) Nucleated RBC % Platelet Estimate Hypochromasia Stomatocytes PT INR APTT Specimen Type ART Sample Site R Radial pH 7.20 L Bicarbonate Actual 52.3 H Total CO2 > 50 Base Excess 24 H O2 Saturation 98 O2 % ABG pCO2 133.7 H* ABG pO2 150 H Wade Test Positive Respiration Rate O2 Delivery Device Cannula Liter Flow 2.0 Vent Mode POC PEEP POC Pressure Suppt Crit Call To/Read Back Yes Clinical Comments Sodium 141 Potassium 4.2 Chloride 95 L Carbon Dioxide > 45.0 H* Anion Gap TNP BUN 56 H Creatinine 1.75 H Estim Creat Clear Calc 19.09 Est GFR (MDRD) Af Amer 36 L Est GFR (MDRD) Non-Af 30 L BUN/Creatinine Ratio 32.0 H Glucose 141 H Lactic Acid 0.5 Calcium 9.3 Total Bilirubin 0.20 AST 13 L ALT 17 Alkaline Phosphatase 91 Total Creatine Kinase 36 Troponin I 0.051 H Total Protein 7.3 Albumin 2.6 L Globulin 4.7 H Albumin/Globulin Ratio 0.6 L Urine Color Urine Clarity Urine pH Ur Specific [place] Urine Protein Urine Glucose (UA) Urine Ketones Urine Occult Blood Urine Nitrite Urine Bilirubin Urine Urobilinogen Ur Leukocyte Esterase Urine RBC Urine WBC Ur Squamous Epith Cells Amorphous Sediment Urine Bacteria Hyaline Casts Urine Mucus 08/30/20 08/30/20 08/31/20 21:08 21:47 06:50 WBC RBC Hgb Hct MCV MCH MCHC RDW Std Deviation RDW Coeff of Lul Plt Count MPV Immature Gran % (Auto) Neut % (Auto) Lymph % (Auto) [place] % (Auto) Eos % (Auto) Baso % (Auto) Absolute Neuts (auto) Absolute Lymphs (auto) Nucleated RBC % Platelet Estimate Hypochromasia Stomatocytes PT INR APTT Specimen Type ART ART Sample Site R Radial R Brach pH 7.29 L 7.29 L Bicarbonate Actual 40.6 H 45.1 H Total CO2 43 48 Base Excess 14 H 19 H O2 Saturation 48 L 70 L O2 % 30 30 ABG pCO2 84.3 H* 92.9 H* ABG pO2 31 L* 44 L Wade Test Positive Positive Respiration Rate 12 O2 Delivery Device BiPAP BiPAP Liter Flow Vent Mode BiLevel BiLevel POC PEEP 6 6 POC Pressure Suppt 6 10 Crit Call To/Read Back Yes Yes Clinical Comments called to doctor Sodium 141 Potassium 4.3 Chloride 98 Carbon Dioxide 42.0 H Anion Gap 1 L BUN 59 H Creatinine 1.55 H Estim Creat Clear Calc 20.76 Est GFR (MDRD) Af Amer 41 L Est GFR (MDRD) Non-Af 34 L BUN/Creatinine Ratio 38.1 H Glucose 124 H Lactic Acid Calcium 8.9 Total Bilirubin AST ALT Alkaline Phosphatase Total Creatine Kinase Troponin I Total Protein Albumin Globulin Albumin/Globulin Ratio Urine Color Urine Clarity Urine pH Ur Specific [place] Urine Protein Urine Glucose (UA) Urine Ketones Urine Occult Blood Urine Nitrite Urine Bilirubin Urine Urobilinogen Ur Leukocyte Esterase Urine RBC Urine WBC Ur Squamous Epith Cells Amorphous Sediment Urine Bacteria Hyaline Casts Urine Mucus 08/31/20 06:50 WBC 7.3 RBC 3.30 L Hgb 8.9 L Hct 32.9 L MCV 99.7 H MCH 27.0 MCHC 27.1 L RDW Std Deviation 48.6 H RDW Coeff of Lul 13.3 Plt Count 203 MPV 12.1 H Immature Gran % (Auto) 0.500 Neut % (Auto) 86.1 H Lymph % (Auto) 6.0 L [place] % (Auto) 6.7 Eos % (Auto) 0.3 Baso % (Auto) 0.4 Absolute Neuts (auto) 6.3 Absolute Lymphs (auto) 0.44 L Nucleated RBC % 0 Platelet Estimate ADEQUATE Hypochromasia 2+ Stomatocytes 1+ PT INR APTT Specimen Type Sample Site pH Bicarbonate Actual Total CO2 Base Excess O2 Saturation O2 % ABG pCO2 ABG pO2 Wade Test Respiration Rate O2 Delivery Device Liter Flow Vent Mode POC PEEP POC Pressure Suppt Crit Call To/Read Back Clinical Comments Sodium Potassium Chloride Carbon Dioxide Anion Gap BUN Creatinine Estim Creat Clear Calc Est GFR (MDRD) Af Amer Est GFR (MDRD) Non-Af BUN/Creatinine Ratio Glucose Lactic Acid Calcium Total Bilirubin AST ALT Alkaline Phosphatase Total Creatine Kinase Troponin I Total Protein Albumin Globulin Albumin/Globulin Ratio Urine Color Urine Clarity Urine pH Ur Specific [place] Urine Protein Urine Glucose (UA) Urine Ketones Urine Occult Blood Urine Nitrite Urine Bilirubin Urine Urobilinogen Ur Leukocyte Esterase Urine RBC Urine WBC Ur Squamous Epith Cells Amorphous Sediment Urine Bacteria Hyaline Casts Urine Mucus Clinical Impression(s) from Imaging Studies Chest X-Ray 08/30/20 18:06 IMPRESSION: Hyperexpansion consistent with COPD with a continued moderate-sized right pleural effusion with consolidation and volume loss in the right lower lobe. Minimal left pleural effusion. Stable mild cardiomegaly. Electronically Signed: Luda Kerns MD at 18:33 EDT , Service support , Brain CT 08/30/20 19:28 IMPRESSION: No acute intracranial findings. Negative for hemorrhage, hematoma or extra-axial fluid collection. Negative for demarcation of the new nonhemorrhagic infarct zone. Mild involutional changes for age. Electronically Signed: Luda Kerns MD at 21:29 EDT , Service support , Chest X-Ray 08/30/20 22:19 IMPRESSION: No substantial changes from prior exam. Generalized hyperexpansion. Persistent right pleural effusion and right lower lobe volume loss and consolidation. Minimal left pleural effusion. Stable cardiac size. Electronically Signed: Luda Kerns MD at 23:39 EDT , Service support , Current Medications Albuterol Sulfate (Albuterol 2.5 Mg/3 Ml Vial.Neb.) 2.5 mg INHALATION Q6HWA.RT FABIAN Last Admin: 08/31/20 06:46 Dose: 2.5 mg Documented by: Albuterol Sulfate (Albuterol 2.5 Mg/3 Ml Vial.Neb.) 2.5 mg INHALATION Q6H PRN PRN PRN Reason: SHORTNESS OF BREATH Amiodarone HCl (Amiodarone 200 Mg Tablet) 200 mg PO TID FABIAN Stop: 09/03/20 22:01 Last Admin: 08/31/20 05:51 Dose: Not Given Documented by: Amiodarone HCl (Amiodarone 200 Mg Tablet) 200 mg PO BID [facility] Stop: 09/17/20 22:01 Amiodarone HCl (Amiodarone 200 Mg Tablet) 200 mg PO DAILY [facility] Apixaban (Apixaban 2.5 Mg Tablet) 2.5 mg PO BID [facility] Last Admin: 08/30/20 21:34 Dose: Not Given Documented by: Budesonide (Budesonide Respules 0.5 Mg/2 Ml Ampul.Neb.) 0.5 mg INHALATION Q12H.RT [facility] Last Admin: 08/31/20 06:46 Dose: 0.5 mg Documented by: Clobetasol Propionate (Clobetasol Propionate 0.05% Ointment) 1 applic TOPICAL DAILY PRN PRN; Protocol PRN Reason: SKIN IRRITATION Escitalopram Oxalate (Escitalopram Oxalate 10 Mg Tablet) 10 mg PO DAILY [facility] Sodium Chloride () 1,000 mls @ 75 mls/hr IV .[id number] [facility] Stop: 08/31/20 09:02 Last Admin: 08/30/20 21:37 Dose: 75 mls/hr Documented by: Metoprolol Tartrate (Metoprolol Tartrate 50 Mg Tablet) 50 mg PO BID [facility] Last Admin: 08/30/20 21:34 Dose: Not Given Documented by: Metoprolol Tartrate (Metoprolol Tartrate 5 Mg/5 Ml Vial) 5 mg IV Q8 [facility] Last Admin: 08/31/20 05:47 Dose: 5 mg Documented by: Nitroglycerin (Nitroglycerin (Inpatient Use) 0.4 Mg Tab.Subl) 0.4 mg SL Q5M PRN PRN Reason: CARDIAC/CHEST PAIN Ondansetron HCl (Ondansetron 4 Mg/2 Ml Vial) 4 mg IV Q8H PRN PRN PRN Reason: NAUSEA/VOMITING Paroxetine HCl (Paroxetine 20 Mg Tablet) 30 mg PO DAILY [facility] Pravastatin Sodium (Pravastatin 20 Mg Tablet) 20 mg PO QHS [facility] Last Admin: 08/30/20 21:35 Dose: Not Given Documented by: Sodium Chloride (0.9% Saline Lock 10 Ml Syringe) 10 - 40 ml IV UD PRN PRN Reason: SALINE FLUSH Last Admin: 08/31/20 05:50 Dose: 10 ml Documented by: Assessment/Plan All Active Problems (Last Reviewed 11/17/19 @ 14:38 by Carmela Ambrocio) Atrial flutter with rapid ventricular response (Acute) Right heart failure (Acute) Pleural effusion, right (Acute) Abnormal cardiac enzyme level (Acute) Acute kidney injury (Acute) RECOMMENDATIONS: 1. Continue scheduled bronchodilator therapy along with inhaled corticosteroid. 2. Wean oxygen to maintain saturations 88 to 92%. 3. Continue empiric BiPAP therapy on a nightly basis. 4. Continue beta-alexandra and amiodarone. 5. Close outpatient pulmonary follow-up strongly recommended. IMPRESSIONS: 1. Acute on chronic combined respiratory failure The patient's pulmonary history is unclear, as the patient is a poor historian. She was apparently being seen by an outside salesperson [employer], the name of which the patient cannot recall. She does have an extensive prior smoking history and what I assume is likely advanced age COPD. However, I do not have any pulmonary function studies to confirm this assertion. She readily admits that her inhaler utilization at home is inconsistent. In addition, it is not clear to me whether she has a baseline supplemental oxygen requirement and/or utilizes any form of nocturnal Pap therapy. In general, this patient would benefit from outpatient pulmonary follow-up and optimization. For now, it is reasonable to continue her on scheduled bronchodilators and inhaled corticosteroid. Wean oxygen to maintain saturations 88 to 92%. If she does not have access to any form of Pap therapy in her home environment, we can attempt to set her up on an outpatient basis after testing has been completed. The patient's atrial flutter with rapid ventricular response may have led to her increasing shortness of breath. The patient likely had inadequate metabolic reserve to cope with such an event. Nevertheless, I do suspect that her underlying pulmonary disease is likely contributing to her recurrent dysrhythmia issues. 2. Atrial flutter with RVR/valvular heart disease Continue current medical management with amiodarone and beta-blockade. 3. Advanced age/chronic kidney disease/anemia/depression/hypertension/hyperlipidemia Complicates care, management, recovery and prognosis. Continue home medications as indicated. This note was generated with [employer] software. It may contain incorrect words, spelling, and punctuation that were not noted in checking the note before signing. Inpatient E&M: 63938 Init Hosp L3
[2020-08-31] MEDS: Metoprolol Tartrate 50 MG Tablet PO ×2 (09:43→20:55)
[2020-08-31] MEDS: APIXABAN 2.5 MG TABLET PO ×2 (09:44→20:56)
[2020-08-31] MEDS: Paroxetine 20 MG Tablet 30 MG PO (09:44)
[2020-08-31] MEDS: Escitalopram Oxalate 10 MG Tablet PO (09:44)
--- NOTE | 2020-08-31 11:26 | PCM.NTREPORT ---
Nutrition Therapy Report - History Nutrition Services has been consulted to:: Manage nutrient details of diet order Current diet / nutrition support order:: Carbohydrate Consistent - Anthropometric Measurements Height:: 5 ft 2 in Weight:: 47 kg Body Mass Index (BMI):: 18.9 - Relevant Labs Relevant Labs:: WBC 12.6 K/mm3 (4.4-11.0) H 08/30/20 17:10 RBC 3.30 M/mm3 (4.2-5.4) L 08/31/20 06:50 Hgb 8.9 g/dL (12.0-15.0) L 08/31/20 06:50 Hct 32.9 % (37-47) L 08/31/20 06:50 MCV 99.7 fL (81-99) H 08/31/20 06:50 MCHC 27.1 g/dL (32-36) L 08/31/20 06:50 RDW Std Deviation 48.6 fl (35.1-43.9) H 08/31/20 06:50 MPV 12.1 fl (6.2-12.0) H 08/31/20 06:50 Neut % (Auto) 86.1 % (47-70) H 08/31/20 06:50 Lymph % (Auto) 6.0 % (19-41) L 08/31/20 06:50 Absolute Neuts (auto) 10.9 X10^3/uL (2.0-7.7) H 08/30/20 17:10 Absolute Lymphs (auto) 0.44 X10^3/uL (0.83-4.51) L 08/31/20 06:50 Chloride 95 mmol/L (98-107) L 08/30/20 17:10 Carbon Dioxide 42.0 mmol/L (21.0-32.0) H 08/31/20 06:50 Anion Gap 1 (5-15) L 08/31/20 06:50 BUN 59 mg/dL (7-18) H 08/31/20 06:50 Creatinine 1.55 mg/dL (0.55-1.02) H 08/31/20 06:50 Est GFR (MDRD) Af Amer 41 mL/min (>60) L 08/31/20 06:50 Est GFR (MDRD) Non-Af 34 mL/min (>60) L 08/31/20 06:50 BUN/Creatinine Ratio 38.1 RATIO (10-20) H 08/31/20 06:50 Glucose 124 mg/dL (74-106) H 08/31/20 06:50 AST 13 U/L (15-37) L 08/30/20 17:10 Troponin I 0.051 ng/mL (<0.045) H 08/30/20 17:10 Albumin 2.6 g/dL (3.2-5.0) L 08/30/20 17:10 Globulin 4.7 g/dL (2.2-4.2) H 08/30/20 17:10 Albumin/Globulin Ratio 0.6 RATIO (0.9-2.4) L 08/30/20 17:10 - Assessment Food / Nutrition-Related History:: Recent admin [facility]- dc'd 08/29. Pt reports unintentional wt loss w/ UBW 150 lbs x 1 year ago- estimated 31% severe wt loss x 1 year. +NFPA: severe temporal scooping/depression, severe orbital bone depression/hollow look, severe clavicle bone protrusion. Pt reports consuming 1-3 bottles Boost per day at home- dislikes ensure. Reports continued poor PO intake, family at bedside states pt w/ small b-fast in morning of toast or cereal and supper- pt states no snacks throughout day. SMBG sometimes but pt/family unsure of recent readings. Reports poor PO intake at home x 2 months- estimated to be consuming <50% energy intake compared to estimated needs. CBW 103.6 lbs- wt hx per EMR 110.9 lbs 08/27/20- question wt loss 7.3# x 4 days- will monitor wt for trends and provide ONS at meals for additional taran/protein. Notes experiencing diarrhea w/ LBM 08/30. - Nutrition Diagnosis Problem / Etiology / Signs & Symptoms (PES):: Severe malnutrition in the context of chronic disease/condition related to inadequate oral intake & increased energy expenditure of catabolic disease/COPD as evidenced by severe wt loss 31% x 1 year, consuming </=50% energy intake compared to estimated nutrition needs x past 2 months, and +NFPA Severe- temporal scooping/depression, orbital bone depression/hollow look, clavicle bone protrusion. Evidence of Malnutrition Exists:: Yes Severe PCM:: Chronic Illness - Nutrition Intervention Nutrition Prescription:: 4038-8324 calories. 60-70 grams protein. 0752-5735 ml fluid - Food / Nutrient Delivery Interventions Nutrition support ordered as / adjusted to:: Will liberalize diet to regular RT severe malnutrition and provide magic cup with meals & glucerna 120 ml 4x/day at [facility] for additional taran/pro if consumed. Nutrition education provided?: No - MNT Monitoring Further MNT monitoring and evaluation required?: Yes MNT Follow-up in:: 3-5 days
--- NOTE | 2020-08-31 11:40 | PN_ITS ---
<TateRachael MITER OPERATOR - Last Filed: 08/31/20 11:59> Patient Problems: Active and Suspected Problems (Last Reviewed 11/17/19 @ 14:38 by Carmela Campbell itt) Atrial flutter with rapid ventricular response (Acute) Pleural effusion, right (Acute) Acute kidney injury (Acute) Subjective: Patient seen and examined. Reports improvement in breathing. Denies new symptoms or complaints. Patient is amendable to palliative care consult. - Physical Exam Vitals/I&O's: Vital Signs Temp Pulse Resp BP Pulse Ox 98.9 F 125 H 24 H 133/48 H 100 08/31/20 08:00 08/31/20 09:43 08/31/20 08:00 08/31/20 09:43 08/31/20 08:00 Oxygen Flow Rate (L/min) 3 Oxygen Delivery Method Nasal Cannula Weight: 103 lb 9.876 oz Body Mass Index (BMI) 18.9 Intake and Output for Last 24 Hours 08/29/20 08/30/20 08/31/20 23:59 23:59 23:59 Intake Total 500 / 500 916.25 / 916.25 Output Total 300 / 300 Balance 500 / 500 616.25 / 616.25 General: Alert, Oriented x3, Cooperative, - - Cachectic appearing HEENT: Atraumatic, PERRLA, EOMI, Normocephalic Neck: Supple, No JVD, Negative Carotid Bruits Lungs: Diminished, Rales Cardiovascular: Murmur - +, - - Atrial fibrillation Abdomen: Bowel Sounds Present, Soft, Non Tender, Non-Distended Extremities: No clubbing, No cyanosis, Edema - Upper extremity edema Skin: No rashes, No breakdown Musculoskeletal: No Tenderness to Palpation of Joints or Extremities, Cachexia, Muscle Wasting Neurological: Cranial nerves II-XII grossly intact, Neuro grossly intact Psych/Mental Status: Normal Affect Microbiology Past 72 Hours 08/30/20 17:00 Urine, Catheterized Urine Culture - Preliminary Culture exhibits no growth. Laboratory Results 08/30/20 17:00: Urine Color Yellow, Urine Clarity Sl. Cloudy, Urine pH 5.0, Ur Specific [place] 1.020, Urine Protein 30 H, Urine Glucose (UA) Normal, Urine Ketones Negative, Urine Occult Blood Negative, Urine Nitrite Negative, Urine Bilirubin Negative, Urine Urobilinogen Normal, Ur Leukocyte Esterase Negative, Urine RBC 0 SEEN, Urine WBC 0 SEEN, Ur Squamous Epith Cells 0 SEEN, Amorphous Sediment 1+, Urine Bacteria 0 SEEN, Hyaline Casts 0-5 SEEN, Urine Mucus 0 SEEN 08/30/20 17:10: WBC 12.6 H, RBC 3.74 L, Hgb 10.1 L, Hct 37.2, MCV 99.5 H D, MCH 27.0, MCHC 27.2 L, RDW Std Deviation 48.0 H, RDW Coeff of Lul 13.2, Plt Count 247, MPV 11.9, Immature Gran % (Auto) 0.700, Neut % (Auto) 86.4 H, Lymph % (Auto) 6.4 L, Kemper % (Auto) 5.6, Eos % (Auto) 0.6, Baso % (Auto) 0.3, Absolute Neuts (auto) 10.9 H, Absolute Lymphs (auto) 0.81 L, Nucleated RBC % 0 08/30/20 17:10: PT 12.6, INR 1.0, APTT 29.5 08/30/20 17:10: Sodium 141, Potassium 4.2, Chloride 95 L, Carbon Dioxide > 45.0 H*, Anion Gap TNP, BUN 56 H, Creatinine 1.75 H, Estim Creat Clear Calc 19.09, Est GFR (MDRD) Af Amer 36 L, Est GFR (MDRD) Non-Af 30 L, BUN/Creatinine Ratio 32.0 H, Glucose 141 H, Calcium 9.3, Total Bilirubin 0.20, AST 13 L, ALT 17, Alkaline Phosphatase 91, Total Creatine Kinase 36, Troponin I 0.051 H, Total Protein 7.3, Albumin 2.6 L, Globulin 4.7 H, Albumin/Globulin Ratio 0.6 L 08/30/20 17:39: Specimen Type ART, Sample Site R Radial, pH 7.20 L, Bicarbonate Actual 52.3 H, Total CO2 > 50, Base Excess 24 H, O2 Saturation 98, ABG pCO2 133.7 H*, ABG pO2 150 H, Wade Test Positive, O2 Delivery Device Cannula, Liter Flow 2.0, Crit Call To/Read Back Yes 08/30/20 17:40: Lactic Acid 0.5 08/30/20 21:08: Specimen Type ART, Sample Site R Radial, pH 7.29 L, Bicarbonate Actual 40.6 H, Total CO2 43, Base Excess 14 H, O2 Saturation 48 L, O2 % 30, ABG pCO2 84.3 H*, ABG pO2 31 L*, Wade Test Positive, Respiration Rate 12, O2 Delivery Device BiPAP, Vent Mode BiLevel, POC PEEP 6, POC Pressure Suppt 6, Crit Call To/Read Back Yes, Clinical Comments called to doctor 08/30/20 21:47: Specimen Type ART, Sample Site R Brach, pH 7.29 L, Bicarbonate Actual 45.1 H, Total CO2 48, Base Excess 19 H, O2 Saturation 70 L, O2 % 30, ABG pCO2 92.9 H*, ABG pO2 44 L, Wade Test Positive, O2 Delivery Device BiPAP, Vent Mode BiLevel, POC PEEP 6, POC Pressure Suppt 10, Crit Call To/Read Back Yes 08/31/20 06:50: Sodium 141, Potassium 4.3, Chloride 98, Carbon Dioxide 42.0 H, Anion Gap 1 L, BUN 59 H, Creatinine 1.55 H, Estim Creat Clear Calc 20.76, Est GFR (MDRD) Af Amer 41 L, Est GFR (MDRD) Non-Af 34 L, BUN/Creatinine Ratio 38.1 H , Glucose 124 H, Calcium 8.9 08/31/20 06:50: WBC 7.3, RBC 3.30 L, Hgb 8.9 L, Hct 32.9 L, MCV 99.7 H, MCH 27.0, MCHC 27.1 L, RDW Std Deviation 48.6 H, RDW Coeff of Lul 13.3, Plt Count 203, MPV 12.1 H, Immature Gran % (Auto) 0.500, Neut % (Auto) 86.1 H, Lymph % (Auto) 6.0 L, Kemper % (Auto) 6.7, Eos % (Auto) 0.3, Baso % (Auto) 0.4, Absolute Neuts (auto) 6.3, Absolute Lymphs (auto) 0.44 L, Nucleated RBC % 0, Platelet Estimate ADEQUATE, Hypochromasia 2+, Stomatocytes 1+ Current Medications Albuterol Sulfate (Albuterol 2.5 Mg/3 Ml Vial.Neb.) 2.5 mg INHALATION Q6HWA.RT FABIAN Last Admin: 08/31/20 06:46 Dose: 2.5 mg Documented by: Albuterol Sulfate (Albuterol 2.5 Mg/3 Ml Vial.Neb.) 2.5 mg INHALATION Q6H PRN PRN PRN Reason: SHORTNESS OF BREATH Amiodarone HCl (Amiodarone 200 Mg Tablet) 200 mg PO TID [facility] Stop: 09/03/20 22:01 Last Admin: 08/31/20 05:51 Dose: Not Given Documented by: Amiodarone HCl (Amiodarone 200 Mg Tablet) 200 mg PO BID [facility] Stop: 09/17/20 22:01 Amiodarone HCl (Amiodarone 200 Mg Tablet) 200 mg PO DAILY [facility] Apixaban (Apixaban 2.5 Mg Tablet) 2.5 mg PO BID [facility] Last Admin: 08/31/20 09:44 Dose: 2.5 mg Documented by: Budesonide (Budesonide Respules 0.5 Mg/2 Ml Ampul.Neb.) 0.5 mg INHALATION Q12H.RT [facility] Last Admin: 08/31/20 06:46 Dose: 0.5 mg Documented by: Clobetasol Propionate (Clobetasol Propionate 0.05% Ointment) 1 applic TOPICAL DAILY PRN PRN; Protocol PRN Reason: SKIN IRRITATION Escitalopram Oxalate (Escitalopram Oxalate 10 Mg Tablet) 10 mg PO DAILY [facility] Last Admin: 08/31/20 09:44 Dose: 10 mg Documented by: Metoprolol Tartrate (Metoprolol Tartrate 50 Mg Tablet) 50 mg PO BID [facility] Last Admin: 08/31/20 09:43 Dose: 50 mg Documented by: Metoprolol Tartrate (Metoprolol Tartrate 5 Mg/5 Ml Vial) 5 mg IV Q8 [facility] Last Admin: 08/31/20 05:47 Dose: 5 mg Documented by: Nitroglycerin (Nitroglycerin (Inpatient Use) 0.4 Mg Tab.Subl) 0.4 mg SL Q5M PRN PRN Reason: CARDIAC/CHEST PAIN Nutritional Formula (Lactose Free) (Glucerna Shake 120 Ml Liquid) 120 ml PO 4X/DAY [facility] Ondansetron HCl (Ondansetron 4 Mg/2 Ml Vial) 4 mg IV Q8H PRN PRN PRN Reason: NAUSEA/VOMITING Paroxetine HCl (Paroxetine 20 Mg Tablet) 30 mg PO DAILY [facility] Last Admin: 08/31/20 09:44 Dose: 30 mg Documented by: Pravastatin Sodium (Pravastatin 20 Mg Tablet) 20 mg PO QHS [facility] Last Admin: 08/30/20 21:35 Dose: Not Given Documented by: Sodium Chloride (0.9% Saline Lock 10 Ml Syringe) 10 - 40 ml IV UD PRN PRN Reason: SALINE FLUSH Last Admin: 08/31/20 05:50 Dose: 10 ml Documented by: Medical Necessity - Tobacco Use Smoking Status: Former smoker Assessment/Plan All Active Problems (Last Reviewed 11/17/19 @ 14:38 by Carmela Ambrocio) Atrial flutter with rapid ventricular response (Acute) Right heart failure (Acute) Pleural effusion, right (Acute) Abnormal cardiac enzyme level (Acute) Acute kidney injury (Acute) 1. 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 Improved on BiPAP. Continue BiPAP as tolerated. Continue supplement oxygen to maintain O2 at above 90%. Albuterol and DuoNeb aerosols. Pulmonary medicine following. Given patient's significant health decline and multiple comorbidities, discussed palliative/comfort measures with patient and family. Amenable to consult. 2. Chronic heart failure with preserved ejection fraction-echocardiogram September 2019 demonstrated an EF of 75%, mild mitral valve insufficiency, moderate aortic stenosis, RVSP estimated to be 58 mmHg. 3. Atrial flutter, recent onset-continue amiodarone, Eliquis, metoprolol. 4. Chronic kidney disease stage IIIb-stable, trend BMP. 5. Hypertension-stable, on metoprolol. Hydrochlorothiazide, Lasix on hold. 6. Hyperlipidemia-continue statin. 7. Chronic macrocytic anemia-stable, trend CBC. 8. Severe protein calorie malnutrition-dietitian consult. DVT prophylaxis- Eliquis Discharge planning: Pending palliative/comfort care consult. Continue BiPAP as tolerated. This patient was seen by RASHAWN Graves under the supervision of Dr. Wall. <Chucho Wall - Last Filed: 08/31/20 13:19> Subjective: Seen and examined. Patient was readmitted after 1 day of discharge for unresponsiveness secondary to CO2 narcosis. Patient has atrial flutter and heart rate controlled in 90s. Objective: Physical exam General: Awake, alert and oriented x3. BMI 19.0 kg/m? HEENT: Atraumatic, PERRLA, EOMI, Normocephalic Oral: No Gingival or Mucosal Lesions/ Ulcerations Neck: Supple, No JVD, Negative Carotid Bruits Lungs: Air entry diminished in bilateral lung bases. No crepitation/rhonchi Cardiovascular: Irregular rate and rhythm normal S1, Normal S2, ejection systolic murmur over right 2nd ICS, LLSB Abdomen: Bowel Sounds Present, Soft, Non Tender, Non-Distended : No renal angle tenderness. No suprapubic tenderness. Extremities: Bilateral edema resolved, Capillary Refill Less than 3 Seconds Skin: No rashes, No breakdown Musculoskeletal: No Tenderness to Palpation of Joints or Extremities. Generalized muscle atrophy of extremities. Neurological: Cranial nerves II-XII grossly intact, Deep Tendon Reflexes 2+/4 and Symmetrical, Neuro grossly intact Psych/Mental Status: Flat affect. - Physical Exam Vitals/I&O's: Vital Signs Temp Pulse Resp BP Pulse Ox 98.9 F 81 24 H 133/48 H 100 08/31/20 08:00 08/31/20 11:24 08/31/20 08:00 08/31/20 09:43 08/31/20 08:00 Oxygen Flow Rate (L/min) 3 Oxygen Delivery Method Nasal Cannula Weight: 103 lb 9.876 oz Body Mass Index (BMI) 18.9 Intake and Output for Last 24 Hours 08/29/20 08/30/20 08/31/20 23:59 23:59 23:59 Intake Total 500 / 500 916.25 / 916.25 Output Total 300 / 300 Balance 500 / 500 616.25 / 616.25 Microbiology Past 72 Hours 08/30/20 17:00 Urine, Catheterized Urine Culture - Preliminary Culture exhibits no growth. Laboratory Results 08/30/20 17:00: Urine Color Yellow, Urine Clarity Sl. Cloudy, Urine pH 5.0, Ur Specific [place] 1.020, Urine Protein 30 H, Urine Glucose (UA) Normal, Urine Ketones Negative, Urine Occult Blood Negative, Urine Nitrite Negative, Urine Bilirubin Negative, Urine Urobilinogen Normal, Ur Leukocyte Esterase Negative, Urine RBC 0 SEEN, Urine WBC 0 SEEN, Ur Squamous Epith Cells 0 SEEN, Amorphous Sediment 1+, Urine Bacteria 0 SEEN, Hyaline Casts 0-5 SEEN, Urine Mucus 0 SEEN 08/30/20 17:10: WBC 12.6 H, RBC 3.74 L, Hgb 10.1 L, Hct 37.2, MCV 99.5 H D, MCH 27.0, MCHC 27.2 L, RDW Std Deviation 48.0 H, RDW Coeff of Lul 13.2, Plt Count 247, MPV 11.9, Immature Gran % (Auto) 0.700, Neut % (Auto) 86.4 H, Lymph % (Auto) 6.4 L, Kemper % (Auto) 5.6, Eos % (Auto) 0.6, Baso % (Auto) 0.3, Absolute Neuts (auto) 10.9 H, Absolute Lymphs (auto) 0.81 L, Nucleated RBC % 0 08/30/20 17:10: PT 12.6, INR 1.0, APTT 29.5 08/30/20 17:10: Sodium 141, Potassium 4.2, Chloride 95 L, Carbon Dioxide > 45.0 H*, Anion Gap TNP, BUN 56 H, Creatinine 1.75 H, Estim Creat Clear Calc 19.09, Est GFR (MDRD) Af Amer 36 L, Est GFR (MDRD) Non-Af 30 L, BUN/Creatinine Ratio 32.0 H, Glucose 141 H, Calcium 9.3, Total Bilirubin 0.20, AST 13 L, ALT 17, Alkaline Phosphatase 91, Total Creatine Kinase 36, Troponin I 0.051 H, Total Protein 7.3, Albumin 2.6 L, Globulin 4.7 H, Albumin/Globulin Ratio 0.6 L 08/30/20 17:39: Specimen Type ART, Sample Site R Radial, pH 7.20 L, Bicarbonate Actual 52.3 H, Total CO2 > 50, Base Excess 24 H, O2 Saturation 98, ABG pCO2 133.7 H*, ABG pO2 150 H, Wade Test Positive, O2 Delivery Device Cannula, Liter Flow 2.0, Crit Call To/Read Back Yes 08/30/20 17:40: Lactic Acid 0.5 08/30/20 21:08: Specimen Type ART, Sample Site R Radial, pH 7.29 L, Bicarbonate Actual 40.6 H, Total CO2 43, Base Excess 14 H, O2 Saturation 48 L, O2 % 30, ABG pCO2 84.3 H*, ABG pO2 31 L*, Wade Test Positive, Respiration Rate 12, O2 Delivery Device BiPAP, Vent Mode BiLevel, POC PEEP 6, POC Pressure Suppt 6, Crit Call To/Read Back Yes, Clinical Comments called to doctor 08/30/20 21:47: Specimen Type ART, Sample Site R Brach, pH 7.29 L, Bicarbonate Actual 45.1 H, Total CO2 48, Base Excess 19 H, O2 Saturation 70 L, O2 % 30, ABG pCO2 92.9 H*, ABG pO2 44 L, Wade Test Positive, O2 Delivery Device BiPAP, Vent Mode BiLevel, POC PEEP 6, POC Pressure Suppt 10, Crit Call To/Read Back Yes 08/31/20 06:50: Sodium 141, Potassium 4.3, Chloride 98, Carbon Dioxide 42.0 H, Anion Gap 1 L, BUN 59 H, Creatinine 1.55 H, Estim Creat Clear Calc 20.76, Est GFR (MDRD) Af Amer 41 L, Est GFR (MDRD) Non-Af 34 L, BUN/Creatinine Ratio 38.1 H , Glucose 124 H, Calcium 8.9 08/31/20 06:50: WBC 7.3, RBC 3.30 L, Hgb 8.9 L, Hct 32.9 L, MCV 99.7 H, MCH 27.0, MCHC 27.1 L, RDW Std Deviation 48.6 H, RDW Coeff of Lul 13.3, Plt Count 203, MPV 12.1 H, Immature Gran % (Auto) 0.500, Neut % (Auto) 86.1 H, Lymph % (Auto) 6.0 L, Kemper % (Auto) 6.7, Eos % (Auto) 0.3, Baso % (Auto) 0.4, Absolute Neuts (auto) 6.3, Absolute Lymphs (auto) 0.44 L, Nucleated RBC % 0, Platelet Estimate ADEQUATE, Hypochromasia 2+, Stomatocytes 1+ Current Medications Albuterol Sulfate (Albuterol 2.5 Mg/3 Ml Vial.Neb.) 2.5 mg INHALATION Q6HWA.RT FABIAN Last Admin: 08/31/20 06:46 Dose: 2.5 mg Documented by: Albuterol Sulfate (Albuterol 2.5 Mg/3 Ml Vial.Neb.) 2.5 mg INHALATION Q6H PRN PRN PRN Reason: SHORTNESS OF BREATH Amiodarone HCl (Amiodarone 200 Mg Tablet) 200 mg PO TID [facility] Stop: 09/03/20 22:01 Last Admin: 08/31/20 05:51 Dose: Not Given Documented by: Amiodarone HCl (Amiodarone 200 Mg Tablet) 200 mg PO BID [facility] Stop: 09/17/20 22:01 Amiodarone HCl (Amiodarone 200 Mg Tablet) 200 mg PO DAILY [facility] Apixaban (Apixaban 2.5 Mg Tablet) 2.5 mg PO BID [facility] Last Admin: 08/31/20 09:44 Dose: 2.5 mg Documented by: Budesonide (Budesonide Respules 0.5 Mg/2 Ml Ampul.Neb.) 0.5 mg INHALATION Q12H.RT [facility] Last Admin: 08/31/20 06:46 Dose: 0.5 mg Documented by: Clobetasol Propionate (Clobetasol Propionate 0.05% Ointment) 1 applic TOPICAL DAILY PRN PRN; Protocol PRN Reason: SKIN IRRITATION Escitalopram Oxalate (Escitalopram Oxalate 10 Mg Tablet) 10 mg PO DAILY [facility] Last Admin: 08/31/20 09:44 Dose: 10 mg Documented by: Metoprolol Tartrate (Metoprolol Tartrate 50 Mg Tablet) 50 mg PO BID [facility] Last Admin: 08/31/20 09:43 Dose: 50 mg Documented by: Metoprolol Tartrate (Metoprolol Tartrate 5 Mg/5 Ml Vial) 5 mg IV Q8 [facility] Last Admin: 08/31/20 05:47 Dose: 5 mg Documented by: Nitroglycerin (Nitroglycerin (Inpatient Use) 0.4 Mg Tab.Subl) 0.4 mg SL Q5M PRN PRN Reason: CARDIAC/CHEST PAIN Nutritional Formula (Lactose Free) (Glucerna Shake 120 Ml Liquid) 120 ml PO 4X/DAY [facility] Ondansetron HCl (Ondansetron 4 Mg/2 Ml Vial) 4 mg IV Q8H PRN PRN PRN Reason: NAUSEA/VOMITING Paroxetine HCl (Paroxetine 20 Mg Tablet) 30 mg PO DAILY [facility] Last Admin: 08/31/20 09:44 Dose: 30 mg Documented by: Pravastatin Sodium (Pravastatin 20 Mg Tablet) 20 mg PO QHS [facility] Last Admin: 08/30/20 21:35 Dose: Not Given Documented by: Sodium Chloride (0.9% Saline Lock 10 Ml Syringe) 10 - 40 ml IV UD PRN PRN Reason: SALINE FLUSH Last Admin: 08/31/20 05:50 Dose: 10 ml Documented by: Assessment/Plan This patient was seen in conjunction with Rachael WELLS. I have independently interviewed and examined the patient and reviewed pertinent history, examination findings, laboratory and plan of management. I have reviewed the note and agree with the documented findings with the few additional points. In brief, patient is 80-year-old female admitted with altered mental status, decreased responsiveness and weakness after recent discharge for atrial flutter with RVR which controlled on tapering dose of amiodarone. Patient has advanced COPD/emphysema we will use home oxygen. Patient was tachypneic and tachycardic and arterial blood gas pH 7.2 showed PCO2 133, PO2 150, subsequently PCO2 decreased to 92. Patient is DNR CC arrest with no intubation. EKG remained atrial flutter at heart rate of 100 beats . Chest x-ray showed small right pleural effusion. Patient seen by corporate executive. On scheduled bronchodilator with inhaled corticosteroid. Patient on amiodarone and beta-alexandra. With multiple comorbidities including advanced COPD/emphysema, CO2 narcosis, atrial flutter and valvular heart disease, mild MR, mild TR, moderate aortic stenosis EF 75%, RVSP 38 mmHg on last echo in September 2019 patient is high risk of recurrent admission therefore palliative/hospice care offered. Patient family agreed. Patient also has severe protein calorie malnutrition. Rest comorbidities as mentioned above CODE STATUS remains DNR CC arrest with no intubation as well as during previous hospital course I have discussed my assessment with Rachael WELLS and orders have been reviewed. Total time of the visit including total time spent in counseling or coordination of care, (more than 50% of the total time, spent in obtaining medical information from nurses and other ancillary care providers,explaining to the patient about labs, imaging, diagnosis and management), discussion with pharmacy consultant, review of labs and imaging is 30 minutes. Inpatient E&M: [id number] [facility]
[2020-08-31] MEDS: Amiodarone 200 MG Tablet PO ×2 (15:55→20:55)
--- NOTE | 2020-08-31 16:46 | NURSING ---
RNCM Readmission note: Admitted for Acute Metabolic Encephalopathy. Was admitted 08/27-08/29/20 for Aflutter, COPD, MIRANDA Mass. Patient sleeping, met with patient Riaz at bedside. Verified everything from last RNCM initial assessment correct on 08/28/20. Patient does have portable O2 tanks that is charging now. Son yohannes lives in [place]. Plan for/agreeable to Palliative/Comfort care referral per MD. RNCM to follow up should any needs arise. Miguel Szymanski, SALOMÓNCM
[2020-08-31] MEDS: Pravastatin 20 MG Tablet PO (20:56)
[2020-08-31] MEDS: Glucerna Shake 120 ML LIQUID PO (20:56)
[2020-09-01] VITALS (7 sets, daily range): BP systolic 133–149; BP diastolic 62–98; PULSE 62–104; RESP 20–22; TEMP 36.2–37.3; O2SAT 94–100
[2020-09-01] MEDS: Amiodarone 200 MG Tablet PO (05:36)
[2020-09-01 05:50] LABS: Hematocrit 29.5 % (37-47); Hemoglobin 8.1 g/dL (12.0-15.0); Mean Corp Hgb Conc 27.5 g/dL (32-36); Mean Corpuscular Hgb 26.3 pg (27.0-32.0); Mean Corpuscular Volume 95.8 fL (81-99); Mean Platelet Vol. 12.1 fl (6.2-12.0); Platelet Count 188 K/mm3 (150-450); RBC Distribution Width CV 13.5 % (11.6-14.6); RBC Distribution Width SD 47.5 fl (35.1-43.9); Red Blood Count 3.08 M/mm3 (4.2-5.4); White Blood Count 8.7 K/mm3 (4.4-11.0)
[2020-09-01 05:59] LABS: Anion Gap 0 (5-15); BUN 64 mg/dL (7-18); BUN/Creat Ratio 42.7 RATIO (10-20); Calcium,Total 8.7 mg/dL (8.5-10.1); Chloride 94 mmol/L (98-107); EST Glomerular Filtration Rate 35 mL/min (>60); Est Glom Filt Rate - Afr Amer 43 mL/min (>60); Estimated Creatinine Clearance 21.45 ml/min; Glucose 146 mg/dL (74-106); Potassium 4.1 mmol/L (3.5-5.1); Sodium Level 137 mmol/L (136-145)
[2020-09-01] MEDS: Albuterol 2.5 MG/3 ML VIAL.NEB. INHALATION (07:04)
[2020-09-01] MEDS: Budesonide Respules 0.5 MG/2 ML AMPUL.NEB. INHALATION (07:04)
[2020-09-01] MEDS: APIXABAN 2.5 MG TABLET PO (09:28)
[2020-09-01] MEDS: Glucerna Shake 120 ML LIQUID PO (09:28)
[2020-09-01] MEDS: Metoprolol Tartrate 50 MG Tablet PO (09:29)
[2020-09-01] MEDS: Escitalopram Oxalate 10 MG Tablet PO (09:29)
[2020-09-01] MEDS: Paroxetine 20 MG Tablet 30 MG PO (09:30)
--- NOTE | 2020-09-01 09:45 | PN_ITS ---
Patient Problems: Active and Suspected Problems (Last Reviewed 11/17/19 @ 14:38 by Carmela Ambrocio) Atrial flutter with rapid ventricular response (Acute) Pleural effusion, right (Acute) Acute kidney injury (Acute) Subjective: The patient was seen and examined at the bedside this morning. Events from the last 24 hours have been reviewed. The patient is currently afebrile, hemodynamically stable and maintaining appropriate oxygen saturations on 2 L/min via nasal cannula. The patient does report improvement in her breathing quality overall. Objective: The patient's most recent lab work, culture data and imaging studies have all been personally reviewed. Surface echocardiogram revealed normal LV size with mild concentric LVH. Ejection fraction was noted to be 75% with evidence of diastolic dysfunction. Right ventricular systolic pressure was estimated to be 58 mmHg. Moderate aortic valve stenosis was noted. - Physical Exam Vitals/I&O's: Vital Signs Temp Pulse Resp BP Pulse Ox 99.2 F H 94 20 H 133/98 H 94 09/01/20 09:35 09/01/20 09:35 09/01/20 09:35 09/01/20 09:35 09/01/20 09:35 Oxygen Flow Rate (L/min) 2 Oxygen Delivery Method Nasal Cannula Weight: 103 lb 9.876 oz Body Mass Index (BMI) 18.9 Intake and Output for Last 24 Hours 08/30/20 08/31/20 09/01/20 23:59 23:59 23:59 Intake Total 500 / 500 916.25 / 1156.25 420 / 420 Output Total 500 / 600 100 / 100 Balance 500 / 500 416.25 / 556.25 320 / 320 General: Alert, Cooperative, No apparent distress, - - Frail and cachectic in appearance HEENT: Atraumatic, Normocephalic Oral: No Gingival or Mucosal Lesions/ Ulcerations Neck: Supple, No Nodes, Trachea Midline Lungs: Diminished Cardiovascular: Normal S1, Normal S2, Irregular Rate, Murmur Abdomen: Bowel Sounds Present, Soft, Non Tender Extremities: No clubbing, No cyanosis, No edema Skin: No breakdown Musculoskeletal: Cachexia, Muscle Wasting Lymphatic: No Cervical, Supraclavicular, or Inguinal Adenopathy Neurological: Cranial nerves II-XII grossly intact, Neuro grossly intact Psych/Mental Status: Flat Affect Labs (Last 48 Hours) 08/30/20 08/30/2021 17:00 17:10 17:10 WBC 12.6 H RBC 3.74 L Hgb 10.1 L Hct 37.2 MCV 99.5 H D MCH 27.0 MCHC 27.2 L RDW Std Deviation 48.0 H RDW Coeff of Lul 13.2 Plt Count 247 MPV 11.9 Immature Gran % (Auto) 0.700 Neut % (Auto) 86.4 H Lymph % (Auto) 6.4 L Russell % (Auto) 5.6 Eos % (Auto) 0.6 Baso % (Auto) 0.3 Absolute Neuts (auto) 10.9 H Absolute Lymphs (auto) 0.81 L Nucleated RBC % 0 Platelet Estimate Hypochromasia Stomatocytes PT 12.6 INR 1.0 APTT 29.5 Specimen Type Sample Site pH Bicarbonate Actual Total CO2 Base Excess O2 Saturation O2 % ABG pCO2 ABG pO2 Wade Test Respiration Rate O2 Delivery Device Liter Flow Vent Mode POC PEEP POC Pressure Suppt Crit Call To/Read Back Clinical Comments Sodium Potassium Chloride Carbon Dioxide Anion Gap BUN Creatinine Estim Creat Clear Calc Est GFR (MDRD) Af Amer Est GFR (MDRD) Non-Af BUN/Creatinine Ratio Glucose Lactic Acid Calcium Total Bilirubin AST ALT Alkaline Phosphatase Total Creatine Kinase Troponin I Total Protein Albumin Globulin Albumin/Globulin Ratio Urine Color Yellow Urine Clarity Sl. Cloudy Urine pH 5.0 Ur Specific [place] 1.020 Urine Protein 30 H Urine Glucose (UA) Normal Urine Ketones Negative Urine Occult Blood Negative Urine Nitrite Negative Urine Bilirubin Negative Urine Urobilinogen Normal Ur Leukocyte Esterase Negative Urine RBC 0 SEEN Urine WBC 0 SEEN Ur Squamous Epith Cells 0 SEEN Amorphous Sediment 1+ Urine Bacteria 0 SEEN Hyaline Casts 0-5 SEEN Urine Mucus 0 SEEN 08/30/20 08/30/20 08/30/20 17:10 17:39 17:40 WBC RBC Hgb Hct MCV MCH MCHC RDW Std Deviation RDW Coeff of Lul Plt Count MPV Immature Gran % (Auto) Neut % (Auto) Lymph % (Auto) Russell % (Auto) Eos % (Auto) Baso % (Auto) Absolute Neuts (auto) Absolute Lymphs (auto) Nucleated RBC % Platelet Estimate Hypochromasia Stomatocytes PT INR APTT Specimen Type ART Sample Site R Radial pH 7.20 L Bicarbonate Actual 52.3 H Total CO2 > 50 Base Excess 24 H O2 Saturation 98 O2 % ABG pCO2 133.7 H* ABG pO2 150 H Wade Test Positive Respiration Rate O2 Delivery Device Cannula Liter Flow 2.0 Vent Mode POC PEEP POC Pressure Suppt Crit Call To/Read Back Yes Clinical Comments Sodium 141 Potassium 4.2 Chloride 95 L Carbon Dioxide > 45.0 H* Anion Gap TNP BUN 56 H Creatinine 1.75 H Estim Creat Clear Calc 19.09 Est GFR (MDRD) Af Amer 36 L Est GFR (MDRD) Non-Af 30 L BUN/Creatinine Ratio 32.0 H Glucose 141 H Lactic Acid 0.5 Calcium 9.3 Total Bilirubin 0.20 AST 13 L ALT 17 Alkaline Phosphatase 91 Total Creatine Kinase 36 Troponin I 0.051 H Total Protein 7.3 Albumin 2.6 L Globulin 4.7 H Albumin/Globulin Ratio 0.6 L Urine Color Urine Clarity Urine pH Ur Specific [place] Urine Protein Urine Glucose (UA) Urine Ketones Urine Occult Blood Urine Nitrite Urine Bilirubin Urine Urobilinogen Ur Leukocyte Esterase Urine RBC Urine WBC Ur Squamous Epith Cells Amorphous Sediment Urine Bacteria Hyaline Casts Urine Mucus 08/30/20 08/30/20 08/31/20 21:08 21:47 06:50 WBC RBC Hgb Hct MCV MCH MCHC RDW Std Deviation RDW Coeff of Lul Plt Count MPV Immature Gran % (Auto) Neut % (Auto) Lymph % (Auto) Russell % (Auto) Eos % (Auto) Baso % (Auto) Absolute Neuts (auto) Absolute Lymphs (auto) Nucleated RBC % Platelet Estimate Hypochromasia Stomatocytes PT INR APTT Specimen Type ART ART Sample Site R Radial R Brach pH 7.29 L 7.29 L Bicarbonate Actual 40.6 H 45.1 H Total CO2 43 48 Base Excess 14 H 19 H O2 Saturation 48 L 70 L O2 % 30 30 ABG pCO2 84.3 H* 92.9 H* ABG pO2 31 L* 44 L Wade Test Positive Positive Respiration Rate 12 O2 Delivery Device BiPAP BiPAP Liter Flow Vent Mode BiLevel BiLevel POC PEEP 6 6 POC Pressure Suppt 6 10 Crit Call To/Read Back Yes Yes Clinical Comments called to doctor Sodium 141 Potassium 4.3 Chloride 98 Carbon Dioxide 42.0 H Anion Gap 1 L BUN 59 H Creatinine 1.55 H Estim Creat Clear Calc 20.76 Est GFR (MDRD) Af Amer 41 L Est GFR (MDRD) Non-Af 34 L BUN/Creatinine Ratio 38.1 H Glucose 124 H Lactic Acid Calcium 8.9 Total Bilirubin AST ALT Alkaline Phosphatase Total Creatine Kinase Troponin I Total Protein Albumin Globulin Albumin/Globulin Ratio Urine Color Urine Clarity Urine pH Ur Specific [place] Urine Protein Urine Glucose (UA) Urine Ketones Urine Occult Blood Urine Nitrite Urine Bilirubin Urine Urobilinogen Ur Leukocyte Esterase Urine RBC Urine WBC Ur Squamous Epith Cells Amorphous Sediment Urine Bacteria Hyaline Casts Urine Mucus 08/31/20 09/01/20 09/01/20 06:50 05:00 05:00 WBC 7.3 8.7 RBC 3.30 L 3.08 L Hgb 8.9 L 8.1 L Hct 32.9 L 29.5 L MCV 99.7 H 95.8 MCH 27.0 26.3 L MCHC 27.1 L 27.5 L RDW Std Deviation 48.6 H 47.5 H RDW Coeff of Lul 13.3 13.5 Plt Count 203 188 MPV 12.1 H 12.1 H Immature Gran % (Auto) 0.500 Neut % (Auto) 86.1 H Lymph % (Auto) 6.0 L Russell % (Auto) 6.7 Eos % (Auto) 0.3 Baso % (Auto) 0.4 Absolute Neuts (auto) 6.3 Absolute Lymphs (auto) 0.44 L Nucleated RBC % 0 Platelet Estimate ADEQUATE Hypochromasia 2+ Stomatocytes 1+ PT INR APTT Specimen Type Sample Site pH Bicarbonate Actual Total CO2 Base Excess O2 Saturation O2 % ABG pCO2 ABG pO2 Wade Test Respiration Rate O2 Delivery Device Liter Flow Vent Mode POC PEEP POC Pressure Suppt Crit Call To/Read Back Clinical Comments Sodium 137 Potassium 4.1 Chloride 94 L Carbon Dioxide 43.0 H Anion Gap 0 L BUN 64 H Creatinine 1.50 H Estim Creat Clear Calc 21.45 Est GFR (MDRD) Af Amer 43 L Est GFR (MDRD) Non-Af 35 L BUN/Creatinine Ratio 42.7 H Glucose 146 H Lactic Acid Calcium 8.7 Total Bilirubin AST ALT Alkaline Phosphatase Total Creatine Kinase Troponin I Total Protein Albumin Globulin Albumin/Globulin Ratio Urine Color Urine Clarity Urine pH Ur Specific [place] Urine Protein Urine Glucose (UA) Urine Ketones Urine Occult Blood Urine Nitrite Urine Bilirubin Urine Urobilinogen Ur Leukocyte Esterase Urine RBC Urine WBC Ur Squamous Epith Cells Amorphous Sediment Urine Bacteria Hyaline Casts Urine Mucus Microbiology 08/30/20 17:00 Urine, Catheterized Urine Culture - Preliminary Culture exhibits no growth. Clinical Impression(s) from Imaging Studies Chest X-Ray 08/30/20 18:06 IMPRESSION: Hyperexpansion consistent with COPD with a continued moderate-sized right pleural effusion with consolidation and volume loss in the right lower lobe. Minimal left pleural effusion. Stable mild cardiomegaly. Electronically Signed: Luda Kerns MD at 18:33 EDT , Service support , Brain CT 08/30/20 19:28 IMPRESSION: No acute intracranial findings. Negative for hemorrhage, hematoma or extra-axial fluid collection. Negative for demarcation of the new nonhemorrhagic infarct zone. Mild involutional changes for age. Electronically Signed: Luda Kerns MD at 21:29 EDT , Service support , Chest X-Ray 08/30/20 22:19 IMPRESSION: No substantial changes from prior exam. Generalized hyperexpansion. Persistent right pleural effusion and right lower lobe volume loss and consolidation. Minimal left pleural effusion. Stable cardiac size. Electronically Signed: Luda Kerns MD at 23:39 EDT , Service support , Current Medications Albuterol Sulfate (Albuterol 2.5 Mg/3 Ml Vial.Neb.) 2.5 mg INHALATION Q6HWA.RT FABIAN Last Admin: 09/01/20 07:04 Dose: 2.5 mg Documented by: Albuterol Sulfate (Albuterol 2.5 Mg/3 Ml Vial.Neb.) 2.5 mg INHALATION Q6H PRN PRN PRN Reason: SHORTNESS OF BREATH Amiodarone HCl (Amiodarone 200 Mg Tablet) 200 mg PO TID FABIAN Stop: 09/03/20 22:01 Last Admin: 09/01/20 05:36 Dose: 200 mg Documented by: Amiodarone HCl (Amiodarone 200 Mg Tablet) 200 mg PO BID [facility] Stop: 09/17/20 22:01 Amiodarone HCl (Amiodarone 200 Mg Tablet) 200 mg PO DAILY [facility] Apixaban (Apixaban 2.5 Mg Tablet) 2.5 mg PO BID [facility] Last Admin: 09/01/20 09:28 Dose: 2.5 mg Documented by: Budesonide (Budesonide Respules 0.5 Mg/2 Ml Ampul.Neb.) 0.5 mg INHALATION Q12 H.RT [facility] Last Admin: 09/01/20 07:04 Dose: 0.5 mg Documented by: Clobetasol Propionate (Clobetasol Propionate 0.05% Ointment) 1 applic TOPICAL DAILY PRN PRN; Protocol PRN Reason: SKIN IRRITATION Escitalopram Oxalate (Escitalopram Oxalate 10 Mg Tablet) 10 mg PO DAILY [facility] Last Admin: 09/01/20 09:29 Dose: 10 mg Documented by: Metoprolol Tartrate (Metoprolol Tartrate 50 Mg Tablet) 50 mg PO BID [facility] Last Admin: 09/01/20 09:29 Dose: 50 mg Documented by: Nitroglycerin (Nitroglycerin (Inpatient Use) 0.4 Mg Tab.Subl) 0.4 mg SL Q5M PRN PRN Reason: CARDIAC/CHEST PAIN Nutritional Formula (Lactose Free) (Glucerna Shake 120 Ml Liquid) 120 ml PO 4X/DAY [facility] Last Admin: 09/01/20 09:28 Dose: 120 ml Documented by: Ondansetron HCl (Ondansetron 4 Mg/2 Ml Vial) 4 mg IV Q8H PRN PRN PRN Reason: NAUSEA/VOMITING Paroxetine HCl (Paroxetine 20 Mg Tablet) 30 mg PO DAILY [facility] Last Admin: 09/01/20 09:30 Dose: 30 mg Documented by: Pravastatin Sodium (Pravastatin 20 Mg Tablet) 20 mg PO QHS [facility] Last Admin: 08/31/20 20:56 Dose: 20 mg Documented by: Sodium Chloride (0.9% Saline Lock 10 Ml Syringe) 10 - 40 ml IV UD PRN PRN Reason: SALINE FLUSH Last Admin: 08/31/20 20:56 Dose: 20 ml Documented by: Medical Necessity - Tobacco Use Smoking Status: Former smoker Assessment/Plan All Active Problems (Last Reviewed 11/17/19 @ 14:38 by Carmela Ambrocio) Atrial flutter with rapid ventricular response (Acute) Right heart failure (Acute) Pleural effusion, right (Acute) Abnormal cardiac enzyme level (Acute) Acute kidney injury (Acute) RECOMMENDATIONS: 1. Continue scheduled bronchodilator therapy along with inhaled corticosteroid. 2. Wean oxygen to maintain saturations 88 to 92%. 3. Continue empiric BiPAP therapy on a nightly basis. 4. Continue beta-alexandra and amiodarone. 5. Close outpatient pulmonary follow-up strongly recommended. IMPRESSIONS: 1. Acute on chronic combined respiratory failure The patient's pulmonary history is unclear, as the patient is a poor historian. She was apparently being seen by an outside fruit rancher, the name of which the patient cannot recall. She does have an extensive prior smoking history and what I assume is likely advanced age COPD. However, I do not have any pulmonary function studies to confirm this assertion. She readily admits that her inhaler utilization at home is inconsistent. In addition, it is not clear to me whether she has a baseline supplemental oxygen requirement and/or utilizes any form of nocturnal Pap therapy. In general, this patient would benefit from outpatient pulmonary follow-up and optimization. For now, it is reasonable to continue her on scheduled bronchodilators and inhaled corticosteroid. Wean oxygen to maintain saturations 88 to 92%. If she does not have access to any form of Pap therapy in her home environment, we can attempt to set her up on an outpatient basis after testing has been completed. The patient's atrial flutter with rapid ventricular response may have led to her increasing shortness of breath. The patient likely had inadequate metabolic reserve to cope with such an event. Nevertheless, I do suspect that her underlying pulmonary disease is likely contributing to her recurrent dysrhythmia issues. 2. Atrial flutter with RVR/valvular heart disease Continue current medical management with amiodarone and beta-blockade. 3. Advanced age/chronic kidney disease/anemia/depression/hypertension/hyperlipidemia Complicates care, management, recovery and prognosis. Continue home medications as indicated. This note was generated with [employer] software. It may contain incorrect words, spelling, and punctuation that were not noted in checking the note before signing. Inpatient E&M: 56930 Subs Hosp L2
--- NOTE | 2020-09-01 11:45 | NURSING ---
Pt refusing heel protector boots. Heels offloaded.
--- NOTE | 2020-09-01 13:25 | DS.PCM_ITS ---
<TateRachael REGIONAL SALES REPRESENTATIVE - Last Filed: 09/01/20 13:39> Discharge Date and Diagnosis - Problem List Patient Problems: Active and Suspected Problems (Last Reviewed 11/17/19 @ 14:38 by Carmela Ambrocio) Atrial flutter with rapid ventricular response (Acute) Pleural effusion, right (Acute) Acute kidney injury (Acute) Date of Admission: 08/30/20 Date of Discharge: 09/01/20 - Primary Discharge Diagnosis Acute Problems: Active Problems (Last Reviewed 11/17/19 @ 14:38 by Carmela Ambrocio) 1. Acute metabolic encephalopathy secondary to acute on chronic combined hypoxic and hypercapnic respiratory failure secondary to chronic COPD/emphysema, recurrent pleural effusions as a result of chronic heart failure with preserved ejection fraction and moderate pulmonary hypertension 2. Chronic heart failure with preserved ejection fraction 3. Atrial flutter, recent onset 4. Chronic kidney disease stage IIIb 5. Hypertension 6. Hyperlipidemia 7. Chronic macrocytic anemia 8. Severe protein calorie malnutrition 9. Hospice transition - Secondary Discharge Diagnosis Chronic Problems: Chronic Problems (Last Reviewed 11/17/19 @ 14:38 by Carmela Ambrocio) Chronic kidney disease (CKD) (Chronic) Mitral valve disorder (Chronic) Acute and chronic respiratory failure with hypercapnia (Chronic) RBBB (right bundle branch block) (Chronic) Nonrheumatic aortic (valve) stenosis (Chronic) Mild COPD (chronic obstructive pulmonary disease) (Chronic) CKD (chronic kidney disease) stage 3, GFR 30-59 ml/min (Chronic) Type 2 diabetes mellitus (Chronic) Essential hypertension (Chronic) Mixed hyperlipidemia (Chronic) Hospital Course and Treatment Imaging Results: Diagnostic Data Brain CT 08/30/20 19:28 IMPRESSION: No acute intracranial findings. Negative for hemorrhage, hematoma or extra-axial fluid collection. Negative for demarcation of the new nonhemorrhagic infarct zone. Mild involutional changes for age. Electronically Signed: Luda Kerns MD at 21:29 EDT , Service support , Chest X-Ray 08/30/20 22:19 IMPRESSION: No substantial changes from prior exam. Generalized hyperexpansion. Persistent right pleural effusion and right lower lobe volume loss and consolidation. Minimal left pleural effusion. Stable cardiac size. Electronically Signed: Luda Kerns MD at 23:39 EDT , Service support , Dr. Lance- pulmonary medicine Hospice Operations: None Procedures: None Summary of Care Provided: The patient is a 80 year old F admitted 08/30/20 due to unresponsiveness, weakness and altered mental status. 1. Acute metabolic encephalopathy secondary to acute on chronic combined hypoxic and hypercapnic respiratory failure secondary to chronic COPD/emphysema, recurrent pleural effusions as a result of chronic heart failure with preserved ejection fraction and moderate pulmonary hypertension- chest x-ray admission unchanged from prior with persistent right pleural effusion and minimal left pleural effusion. Placed on BiPAP however patient resistant to treatment. Pulmonary medicine consulted during admission who suspects patient has advanced emphysema/COPD. Given patient's significant health decline and multiple comorbidities, discussed palliative/comfort measures with patient and family. Patient and family amenable to hospice transition. Patient appears tachypneic and restless. Patient frequently removing oxygen tubing and oxygen desaturates quickly. Inpatient hospice facility at discharge. 2. Chronic heart failure with preserved ejection fraction-echocardiogram September 2019 demonstrated an EF of 75%, mild mitral valve insufficiency, moderate aortic stenosis, RVSP estimated to be 58 mmHg, moderate pulmonary hypertension. Diuretics held on admission as creatinine and bicarb up from recent discharge and patient felt to be over diuresed. However, patient has persistent pleural effusions. 3. Atrial flutter, recent onset-continue amiodarone, Eliquis, metoprolol. 4. Chronic kidney disease stage IIIb-at baseline. 5. Hypertension-stable, on metoprolol. Hydrochlorothiazide, Lasix held during admission. 6. Hyperlipidemia-continue statin. 7. Chronic macrocytic anemia-at baseline. 8. Severe protein calorie malnutrition-cachectic appearance, evidence of muscle and fat loss. 9. Hospice transition-due to patient's significant health and functional decline, multiple comorbidities hospice consult placed. Patient as well as patient's and son amendable to hospice transition and due to dyspnea, restlessness and frailty, and patient hospice facility if found to be appropriate. Patient's and son supportive of inpatient hospice facility. 10. Anxiety/depression-on paroxetine, escitalopram, as needed lorazepam. General: Alert, Oriented x3, Cooperative, Cachectic, frail appearing HEENT: Atraumatic, PERRLA, EOMI, Normocephalic Neck: Supple, No JVD, Negative Carotid Bruits Lungs: Diminished, Rales, tachypneic Cardiovascular: Murmur - +, Atrial fibrillation Abdomen: Bowel Sounds Present, Soft, Non Tender, Non-Distended Extremities: No clubbing, No cyanosis, Edema - Upper extremity edema Skin: No rashes, No breakdown Musculoskeletal: No Tenderness to Palpation of Joints or Extremities, Cachexia, Muscle Wasting Neurological: Cranial nerves II-XII grossly intact, Neuro grossly intact Psych/Mental Status: Flat Affect Patient seen and examined prior to discharge. Physical assessment as noted above. This patient was seen by RASHAWN Graves under the supervision of Dr. Wall. Patient Problems: Active and Suspected Problems (Last Reviewed 11/17/19 @ 14:38 by Carmela Ambrocio) Atrial flutter with rapid ventricular response (Acute) Pleural effusion, right (Acute) Acute kidney injury (Acute) - Physical Exam Vitals/I&O's: Vital Signs Temp Pulse Resp BP Pulse Ox 99.2 F H 75 20 H 133/98 H 94 09/01/20 09:35 09/01/20 11:00 09/01/20 09:35 09/01/20 09:35 09/01/20 09:35 Oxygen Flow Rate (L/min) 2 Oxygen Delivery Method Nasal Cannula Weight: 103 lb 9.876 oz Body Mass Index (BMI) 18.9 Intake and Output for Last 24 Hours 08/30/20 08/31/20 09/01/20 23:59 23:59 23:59 Intake Total 500 / 500 916.25 / 1156.25 660 / 660 Output Total 500 / 600 325 / 325 Balance 500 / 500 416.25 / 556.25 335 / 335 Microbiology Past 72 Hours 09/01/20 10:15 Mucosa - Nose SARS-CoV-2 Antigen (Rapid) - Final 08/30/20 17:00 Urine, Catheterized Urine Culture - Preliminary Culture exhibits no growth. Laboratory Results 09/01/20 05:00: WBC 8.7, RBC 3.08 L, Hgb 8.1 L, Hct 29.5 L, MCV 95.8, MCH 26.3 L , MCHC 27.5 L, RDW Std Deviation 47.5 H, RDW Coeff of Lul 13.5, Plt Count 188, MPV 12.1 H 09/01/20 05:00: Sodium 137, Potassium 4.1, Chloride 94 L, Carbon Dioxide 43.0 H, Anion Gap 0 L, BUN 64 H, Creatinine 1.50 H, Estim Creat Clear Calc 21.45, Est GFR (MDRD) Af Amer 43 L, Est GFR (MDRD) Non-Af 35 L, BUN/Creatinine Ratio 42.7 H , Glucose 146 H, Calcium 8.7 Current Medications Albuterol Sulfate (Albuterol 2.5 Mg/3 Ml Vial.Neb.) 2.5 mg INHALATION Q6HWA.RT [facility] Last Admin: 09/01/20 07:04 Dose: 2.5 mg Documented by: Albuterol Sulfate (Albuterol 2.5 Mg/3 Ml Vial.Neb.) 2.5 mg INHALATION Q6H PRN PRN PRN Reason: SHORTNESS OF BREATH Amiodarone HCl (Amiodarone 200 Mg Tablet) 200 mg PO TID [facility] Stop: 09/03/20 22:01 Last Admin: 09/01/20 05:36 Dose: 200 mg Documented by: Amiodarone HCl (Amiodarone 200 Mg Tablet) 200 mg PO BID [facility] Stop: 09/17/20 22:01 Amiodarone HCl (Amiodarone 200 Mg Tablet) 200 mg PO DAILY [facility] Apixaban (Apixaban 2.5 Mg Tablet) 2.5 mg PO BID [facility] Last Admin: 09/01/20 09:28 Dose: 2.5 mg Documented by: Budesonide (Budesonide Respules 0.5 Mg/2 Ml Ampul.Neb.) 0.5 mg INHALATION Q12H.RT [facility] Last Admin: 09/01/20 07:04 Dose: 0.5 mg Documented by: Clobetasol Propionate (Clobetasol Propionate 0.05% Ointment) 1 applic TOPICAL DAILY PRN PRN; Protocol PRN Reason: SKIN IRRITATION Escitalopram Oxalate (Escitalopram Oxalate 10 Mg Tablet) 10 mg PO DAILY [facility] Last Admin: 09/01/20 09:29 Dose: 10 mg Documented by: Metoprolol Tartrate (Metoprolol Tartrate 50 Mg Tablet) 50 mg PO BID [facility] Last Admin: 09/01/20 09:29 Dose: 50 mg Documented by: Nitroglycerin (Nitroglycerin (Inpatient Use) 0.4 Mg Tab.Subl) 0.4 mg SL Q5M PRN PRN Reason: CARDIAC/CHEST PAIN Nutritional Formula (Lactose Free) (Glucerna Shake 120 Ml Liquid) 120 ml PO 4X/DAY [facility] Last Admin: 09/01/20 09:28 Dose: 120 ml Documented by: Ondansetron HCl (Ondansetron 4 Mg/2 Ml Vial) 4 mg IV Q8H PRN PRN PRN Reason: NAUSEA/VOMITING Paroxetine HCl (Paroxetine 20 Mg Tablet) 30 mg PO DAILY [facility] Last Admin: 09/01/20 09:30 Dose: 30 mg Documented by: Pravastatin Sodium (Pravastatin 20 Mg Tablet) 20 mg PO QHS [facility] Last Admin: 08/31/20 20:56 Dose: 20 mg Documented by: Sodium Chloride (0.9% Saline Lock 10 Ml Syringe) 10 - 40 ml IV UD PRN PRN Reason: SALINE FLUSH Last Admin: 08/31/20 20:56 Dose: 20 ml Documented by: Home Medications: Medications to take at Discharge albuterol sulfate 90 mcg/actuation aerosol inhaler 2 puff INHALATION Q6H PRN 06/27/19 budesonide-formoterol HFA 80 mcg-4.5 mcg/actuation aerosol inhaler 2 puff INHALATION BID 06/27/19 clobetasol 0.05 % topical ointment 1 applic TOPICAL DAILY PRN 06/27/19 hydrochlorothiazide 25 mg tablet 25 mg PO DAILY 06/27/19 paroxetine HCl 30 mg tablet 30 mg PO DAILY 06/27/19 pravastatin 20 mg tablet 20 mg PO DAILY 06/27/19 cholecalciferol (vitamin D3) 50 mcg (2,000 unit) capsule 2,000 unit PO DAILY 08/24/19 lorazepam 0.5 mg tablet 0.5 mg PO BID 11/17/19 Escitalopram Oxalate [Lexapro] 10 mg PO DAILY 08/27/20 Apixaban [Eliquis] 2.5 mg PO BID #60 tablet 08/29/20 Metoprolol Tartrate [Lopressor (beta alexandra)] 50 mg PO BID #60 tablet 08/29/20 Amiodarone HCl [Cordarone] 400 mg PO BID 08/30/20 Amiodarone HCl [Cordarone] 400 mg PO DAILY 08/30/20 Amiodarone HCl [Cordarone] 400 mg PO TID 08/30/20 Furosemide [Lasix] 20 mg PO QODAY 08/30/20 Primary Care Physician: Amado Bruce MD [Primary Care Provider] - Disposition: Hospice Medical Facility Minutes spent on discharge:: 40 Patient Condition:: Guarded Medical Necessity - Tobacco Use Smoking Status: Former smoker Meaningful Use Info Meaningful Use Diagnoses (Choose all that apply): None applicable <DukeChucho - Last Filed: 09/01/20 13:52> Discharge Date and Diagnosis - Primary Discharge Diagnosis Acute Problems: Active Problems (Last Reviewed 11/17/19 @ 14:38 by Carmela Ambrocio) Atrial flutter with rapid ventricular response (Acute) Pleural effusion, right (Acute) Acute kidney injury (Acute) - Secondary Discharge Diagnosis Chronic Problems: Chronic Problems (Last Reviewed 11/17/19 @ 14:38 by Carmela Ambrocio) Chronic kidney disease (CKD) (Chronic) Mitral valve disorder (Chronic) Acute and chronic respiratory failure with hypercapnia (Chronic) RBBB (right bundle branch block) (Chronic) Nonrheumatic aortic (valve) stenosis (Chronic) Mild COPD (chronic obstructive pulmonary disease) (Chronic) CKD (chronic kidney disease) stage 3, GFR 30-59 ml/min (Chronic) Type 2 diabetes mellitus (Chronic) Essential hypertension (Chronic) Mixed hyperlipidemia (Chronic) Hospital Course and Treatment Summary of Care Provided: This patient was seen in conjunction with REGIONAL SALES REPRESENTATIVE, Rachael. I have independently int erviewed and examined the patient and reviewed pertinent history, examination findings, laboratory and plan of management. I have reviewed the note and agree with the documented findings with the few additional points. In brief, patient is 80-year-old female admitted with altered mental status, decreased responsiveness and weakness after recent discharge for atrial flutter with RVR which controlled on tapering dose of amiodarone. Patient has advanced COPD/emphysema and uses home oxygen at this time admitted with acute on chronic combined respiratory failure due to COPD exacerbation, bilateral pleural effusion, atrial flutter, valvular heart disease. Patient was tachypneic and tachycardic and arterial blood gas pH 7.2 showed PCO2 133, PO2 150, subsequently PCO2 decreased to 92. Patient is DNR CC arrest with no intubation. EKG remained atrial flutter at heart rate of 100 beats . Chest x-ray showed small right pleural effusion. Patient seen by internet architect. On scheduled [facility] hodilator with inhaled corticosteroid. Patient on amiodarone and beta-alexandra. CODE STATUS was changed to DNRCC with inpatient hospice care. DNRCC papers signed. Patient discharged to home with home hospice care. Patient other comorbidities including advanced COPD/emphysema, CO2 narcosis, atrial flutter and valvular heart disease, mild MR, mild TR, moderate aortic stenosis EF 75%, RVSP 38 mmHg on last echo in September 2019 patient is high risk of recurrent admission therefore palliative/hospice care offered. Patient family agreed. DNRCC hospice papers signed. Patient is being discharged home hospice care Patient also has severe protein calorie malnutrition. I have discussed my assessment with REGIONAL SALES REPRESENTATIVERachael and orders have been reviewed. Total time of the visit including total time spent in counseling or coordination of care, (more than 50% of the total time, spent in obtaining medical information from nurses and other ancillary care providers,explaining to the patient about labs, imaging, diagnosis and management), , review of labs and imaging is 30 minutes. Objective: Seen and examined. Patient knows the poor prognosis of combined COPD advanced stage, heart failure and atrial fibrillation. She accepts DNRCC hospice care. Shortness of breath is better. Physical exam General: Awake, alert and oriented x3. BMI 19.0 kg/m? HEENT: Atraumatic, PERRLA, EOMI, Normocephalic Oral: No Gingival or Mucosal Lesions/ Ulcerations Neck: Supple, No JVD, Negative Carotid Bruits Lungs: Air entry diminished in bilateral lung bases. No crepitation/rhonchi Cardiovascular: Irregular rate and rhythm normal S1, Normal S2, ejection systolic murmur over right 2nd ICS, LLSB Abdomen: Bowel Sounds Present, Soft, Non Tender, Non-Distended : No renal angle tenderness. No suprapubic tenderness. Extremities: Bilateral edema resolved, Capillary Refill Less than 3 Seconds Skin: No rashes, No breakdown Musculoskeletal: No Tenderness to Palpation of Joints or Extremities. Generalized muscle atrophy of extremities loss of subcutaneous fat. Neurological: Cranial nerves II-XII grossly intact, Deep Tendon Reflexes 2+/4 and Symmetrical, Neuro grossly intact Psych/Mental Status: Flat affect. - Physical Exam Vitals/I&O's: Vital Signs Temp Pulse Resp BP Pulse Ox 99.2 F H 75 20 H 133/98 H 94 09/01/20 09:35 09/01/20 11:00 09/01/20 09:35 09/01/20 09:35 09/01/20 09:35 Oxygen Flow Rate (L/min) 2 Oxygen Delivery Method Nasal Cannula Weight: 103 lb 9.876 oz Body Mass Index (BMI) 18.9 Intake and Output for Last 24 Hours 08/30/20 08/31/20 09/01/20 23:59 23:59 23:59 Intake Total 500 / 500 916.25 / 1156.25 660 / 660 Output Total 500 / 600 325 / 325 Balance 500 / 500 416.25 / 556.25 335 / 335 Microbiology Past 72 Hours 09/01/20 10:15 Mucosa - Nose SARS-CoV-2 Antigen (Rapid) - Final 08/30/20 17:00 Urine, Catheterized Urine Culture - Preliminary Culture exhibits no growth. Laboratory Results 09/01/20 05:00: WBC 8.7, RBC 3.08 L, Hgb 8.1 L, Hct 29.5 L, MCV 95.8, MCH 26.3 L , MCHC 27.5 L, RDW Std Deviation 47.5 H, RDW Coeff of Lul 13.5, Plt Count 188, MPV 12.1 H 09/01/20 05:00: Sodium 137, Potassium 4.1, Chloride 94 L, Carbon Dioxide 43.0 H, Anion Gap 0 L, BUN 64 H, Creatinine 1.50 H, Estim Creat Clear Calc 21.45, Est GFR (MDRD) Af Amer 43 L, Est GFR (MDRD) Non-Af 35 L, BUN/Creatinine Ratio 42.7 H , Glucose 146 H, Calcium 8.7 Current Medications Albuterol Sulfate (Albuterol 2.5 Mg/3 Ml Vial.Neb.) 2.5 mg INHALATION Q6HWA.RT [facility] Last Admin: 09/01/20 07:04 Dose: 2.5 mg Documented by: Albuterol Sulfate (Albuterol 2.5 Mg/3 Ml Vial.Neb.) 2.5 mg INHALATION Q6H PRN PRN PRN Reason: SHORTNESS OF BREATH Amiodarone HCl (Amiodarone 200 Mg Tablet) 200 mg PO TID [facility] Stop: 09/03/20 22:01 Last Admin: 09/01/20 05:36 Dose: 200 mg Documented by: Amiodarone HCl (Amiodarone 200 Mg Tablet) 200 mg PO BID [facility] Stop: 09/17/20 22:01 Amiodarone HCl (Amiodarone 200 Mg Tablet) 200 mg PO DAILY [facility] Apixaban (Apixaban 2.5 Mg Tablet) 2.5 mg PO BID [facility] Last Admin: 09/01/20 09:28 Dose: 2.5 mg Documented by: Budesonide (Budesonide Respules 0.5 Mg/2 Ml Ampul.Neb.) 0.5 mg INHALATION Q12H.RT [facility] Last Admin: 09/01/20 07:04 Dose: 0.5 mg Documented by: Clobetasol Propionate (Clobetasol Propionate 0.05% Ointment) 1 applic TOPICAL DAILY PRN PRN; Protocol PRN Reason: SKIN IRRITATION Escitalopram Oxalate (Escitalopram Oxalate 10 Mg Tablet) 10 mg PO DAILY [facility] Last Admin: 09/01/20 09:29 Dose: 10 mg Documented by: Metoprolol Tartrate (Metoprolol Tartrate 50 Mg Tablet) 50 mg PO BID [facility] Last Admin: 09/01/20 09:29 Dose: 50 mg Documented by: Nitroglycerin (Nitroglycerin (Inpatient Use) 0.4 Mg Tab.Subl) 0.4 mg SL Q5M PRN PRN Reason: CARDIAC/CHEST PAIN Nutritional Formula (Lactose Free) (Glucerna Shake 120 Ml Liquid) 120 ml PO 4X/DAY [facility] Last Admin: 09/01/20 09:28 Dose: 120 ml Documented by: Ondansetron HCl (Ondansetron 4 Mg/2 Ml Vial) 4 mg IV Q8H PRN PRN PRN Reason: NAUSEA/VOMITING Paroxetine HCl (Paroxetine 20 Mg Tablet) 30 mg PO DAILY [facility] Last Admin: 09/01/20 09:30 Dose: 30 mg Documented by: Pravastatin Sodium (Pravastatin 20 Mg Tablet) 20 mg PO QHS [facility] Last Admin: 08/31/20 20:56 Dose: 20 mg Documented by: Sodium Chloride (0.9% Saline Lock 10 Ml Syringe) 10 - 40 ml IV UD PRN PRN Reason: SALINE FLUSH Last Admin: 08/31/20 20:56 Dose: 20 ml Documented by: Inpatient E&M: [id number] Disch Hosp
--- NOTE | 2020-09-12 16:31 | PN.HOSP_ITS ---
Hospitalist Note Documentation query for patient Purnima Castaneda was discharged on 09/01. Patient has acute kidney injury on CKD stage IIIb. Patient creatinine went up from 1.5-1.75. Although acute kidney injury is documented throughout the chart, the diagnosis may be questioned by a third-constitution party reviewer, as a baseline creatinine is not included. Creatinine levels as follows:
== END 2020-09-01 14:43 | disposition hospice, inpatient (51) | DRG 189 ==
LOC: ED 18:03 → PCU 20:23
PROVIDERS: Nurse Practitioner Family; Admitting Provider Student in an Organized Health Care Education/Training Program; Emergency Provider Emergency Medicine; PCP Internal Medicine; Visit Provider Internal Medicine
DX: J96.21 Acute and chronic respiratory failure with hypoxia (principal); G93.41 Metabolic encephalopathy; E43 Unspecified severe protein-calorie malnutrition; Z68.1 Body mass index [BMI] 19.9 or less, adult; I13.0 Hypertensive heart and chronic kidney disease with heart failure and stage 1 through stage 4 chronic kidney disease, or unspecified chronic kidney disease; I50.32 Chronic diastolic (congestive) heart failure; N17.9 Acute kidney failure, unspecified; I50.82 Biventricular heart failure; J96.22 Acute and chronic respiratory failure with hypercapnia; J43.9 Emphysema, unspecified; E11.22 Type 2 diabetes mellitus with diabetic chronic kidney disease; N18.32 Chronic kidney disease, stage 3b; I48.91 Unspecified atrial fibrillation; I27.20 Pulmonary hypertension, unspecified; I34.2 Nonrheumatic mitral (valve) stenosis; E78.2 Mixed hyperlipidemia; F32.9 Major depressive disorder, single episode, unspecified; F41.9 Anxiety disorder, unspecified; Z79.01 Long term (current) use of anticoagulants; Z99.81 Dependence on supplemental oxygen; Z79.899 Other long term (current) drug therapy; Z87.891 Personal history of nicotine dependence
CPT/HCPCS: 36415; 36600; 70450; 71045; 80048; 80053; 81001; 82550; 82803; 83605; 84484; 85025; 85027; 85610; 85730; 87040; 87086; 87426; 93005; 94002; 94003; 94640; 97163; 97167; 97802; 99251; 99285; J7030; J7040; A4216; G0463